=== PATIENT | female | born 1935 | race Caucasian/White ===

== ENCOUNTER → 2016-09-05 | Outpatient (CLI) | payer OTHER, MEDICARE ==
[~2016-09-05] MED LIST: ATV1 PO; IBUP-1459; MULT-506; OXYC1TAB3 PO
[2016-09-05 11:25] LABS: ALT/SGPT 22 U/L (12-78); BLOOD UREA NITROGEN 30 mg/dl (7-18); BUN/CREATININE RATIO 30.4 (10-20); CARBON DIOXIDE 30 mmol/L (21-32); CHLORIDE 106 mmol/L (98-107); GLUCOSE 113 mg/dl (70-99); POTASSIUM 4.7 mmol/L (3.5-5.1); SODIUM 143 mmol/L (136-145)
[2016-09-05 11:26] LABS: ALKALINE PHOSPHATASE 45 U/L (45-117); AST/SGOT 23 U/L (15-37)
[2016-09-05 11:29] LABS: CALCIUM 10.5 mg/dl (8.5-10.1)
[2016-09-05 11:52] LABS: ESTIMATED AVERAGE GLUCOSE 131 mg/dl; HA1C FLAG Normal (Normal)
--- NOTE | 2016-09-09 14:31 | CODING QUERY MEDICAL NECESSITY ---
SUPPORTING DIAGNOSIS NEEDED Dr. Warner, A supporting diagnosis is required for the test/procedure performed on this patient in order for us to be reimbursed by the patient's insurance. Please provide a supporting diagnosis for the following test/procedure listed below next to the test name along with your signature. *If there is no additional diagnosis for this patient that would support the following test/procedure please document that below next to the test/procedure. Test(s)/Procedure(s) that require a supporting diagnosis: * 42269 GLYCATED HEMOGLOBIN DIAGNOSIS: DATE OF SERVICE: 09/05/16 Provider Signature: Date: Thank you Jaya Camarillo [facility] Information Management Once completed, please kindly fax back to [phone] For questions please call [phone]
== END | disposition home or self-care (01) ==
LOC: C.LABBC 07:24
PROVIDERS: ATTEND Internal Medicine
DX: M85.80 Other specified disorders of bone density and structure, unspecified site (principal); R73.03 Prediabetes

== ENCOUNTER → 2016-09-10 | Outpatient (CLI) | payer OTHER, MEDICARE | END | disposition home or self-care (01) | LOC: C.LABBC 11:53 | PROVIDERS: ATTEND Internal Medicine | DX: E83.52 Hypercalcemia (principal) ==

== ENCOUNTER → 2016-10-27 | Outpatient (CLI) | payer OTHER, MEDICARE | END | disposition home or self-care (01) | LOC: C.MAMM 15:04 | PROVIDERS: ATTEND Internal Medicine Endocrinology, Diabetes & Metabolism | DX: E83.52 Hypercalcemia (principal); E21.3 Hyperparathyroidism, unspecified; M85.851 Other specified disorders of bone density and structure, right thigh; M85.852 Other specified disorders of bone density and structure, left thigh ==

== ENCOUNTER → 2016-10-28 | Outpatient (CLI) | payer OTHER, MEDICARE ==
[2016-10-28 12:44] LABS: CALCIUM URINE < 5.0 mg/dl
[2016-10-28 13:19] LABS: URINE COLLECTION TIME 24 HOURS; URINE SODIUM 24 HR 133 mmol/24 (40-220)
[2016-10-28 13:44] LABS: ALT/SGPT 24 U/L (12-78); BLOOD UREA NITROGEN 29 mg/dl (7-18); BUN/CREATININE RATIO 25.9 (10-20); CALCIUM 10.1 mg/dl (8.5-10.1); CARBON DIOXIDE 27 mmol/L (21-32); CHLORIDE 109 mmol/L (98-107); GLUCOSE 90 mg/dl (70-99); MAGNESIUM 2.2 mg/dl (1.8-2.4); POTASSIUM 4.6 mmol/L (3.5-5.1); SODIUM 142 mmol/L (136-145)
[2016-10-28 13:46] LABS: ALB/GLOB RATIO 0.8 (0.9-2); ALKALINE PHOSPHATASE 41 U/L (45-117); AST/SGOT 20 U/L (15-37); PHOSPHORUS 2.8 mg/dl (2.5-4.9)
== END | disposition home or self-care (01) ==
LOC: C.LAB1850 09:39
PROVIDERS: ATTEND Internal Medicine Endocrinology, Diabetes & Metabolism
DX: E83.52 Hypercalcemia (principal)

== ENCOUNTER → 2016-11-13 | Outpatient (CLI) | payer OTHER, MEDICARE ==
[2016-11-13 10:01] LABS: CALCIUM URINE < 5.0 mg/dl
[2016-11-13 10:32] LABS: URINE COLLECTION TIME 24 HOURS
== END | disposition home or self-care (01) ==
LOC: C.LAB1850 07:26
PROVIDERS: ATTEND Internal Medicine Endocrinology, Diabetes & Metabolism
DX: E21.3 Hyperparathyroidism, unspecified (principal)

== ENCOUNTER → 2016-11-20 | Outpatient (CLI) | payer OTHER, MEDICARE ==
--- NOTE | 2016-11-20 23:31 | DIAGNOSTIC IMAGING REPORT ---
NUCLEAR MEDICINE PARATHYROID SCAN CLINICAL HISTORY: HYPERPARATHYROIDISM COMPARISON STUDY: No previous studies for comparison. TECHNIQUE: 20 mCi of technetium 99m Cardiolite was injected IV at 3:30 PM on November 20, 2016. Planar and SPECT imaging was performed 15 minutes and 3 hours following injection. FINDINGS: Early images demonstrate slight asymmetric radiotracer uptake projecting over the right thyroid lobe. No foci of significant radiotracer retention are noted on the delayed images. There may be slight asymmetric retention projecting over the right thyroid lobe although this is likely within normal limits. IMPRESSION: No convincing evidence for a parathyroid adenoma. Slight asymmetric radiotracer uptake projecting over the right thyroid lobe on the early and delayed images is of questionable significance. A right parathyroid adenoma would be difficult to exclude but this study does not strongly suggest an adenoma. Electronically signed by: Soy Pascal M.D. 11/20/2016 11:30 PM Dictated Date/Time: 11/20/2016 11:24 PM
== END | disposition home or self-care (01) ==
LOC: C.NUCL 14:59
PROVIDERS: ATTEND Internal Medicine Endocrinology, Diabetes & Metabolism
DX: E21.3 Hyperparathyroidism, unspecified (principal)

== ENCOUNTER → 2017-01-13 | Outpatient (CLI) | payer OTHER, MEDICARE ==
[2017-01-13 11:38] LABS: ALT/SGPT 22 U/L (12-78); AST/SGOT 22 U/L (15-37); BLOOD UREA NITROGEN 39 mg/dl (7-18); BUN/CREATININE RATIO 32.4 (10-20); CALCIUM 9.8 mg/dl (8.5-10.1); CARBON DIOXIDE 30 mmol/L (21-32); CHLORIDE 104 mmol/L (98-107); GLUCOSE 122 mg/dl (70-99); POTASSIUM 4.5 mmol/L (3.5-5.1); SODIUM 140 mmol/L (136-145)
[2017-01-13 11:43] LABS: ALKALINE PHOSPHATASE 50 U/L (45-117)
== END | disposition home or self-care (01) ==
LOC: C.LABBC 07:31
PROVIDERS: ATTEND Internal Medicine Endocrinology, Diabetes & Metabolism
DX: E83.52 Hypercalcemia (principal)

== ENCOUNTER → 2017-05-06 | Outpatient (CLI) | payer OTHER, MEDICARE ==
[~2017-05-06] MED LIST changes: +OXYC-90 PO; -OXYC1TAB3 PO
[2017-05-06 11:10] LABS: BASO % 0.5 %; BASO ABS # 0.04 K/uL (0-0.2); EOS % 2.6 %; HEMATOCRIT 41.2 % (37-47); HEMOGLOBIN 13.4 g/dL (12.0-16.0); IG# 0.03 K/uL (0.00-0.02); LYMPH % 24.7 %; LYMPH ABS # 1.91 K/uL (1.2-3.4); MEAN CELL VOLUME 97.6 fL (80-100); MEAN CORPUSCULAR HEMOGLOBIN 31.8 pg (25-34); MEAN CORPUSCULAR HGB CONC 32.5 g/dl (32-36); MEAN PLATELET VOLUME 12.3 fL (7.4-10.4); MONO % 9.2 %; MONO ABS # 0.71 K/uL (0.11-0.59); NEUT % 62.6 %; NEUT ABS # 4.84 K/uL (1.4-6.5); PLATELET COUNT 212 K/uL (130-400); RED CELL DISTRIBUTION WIDTH CV 14.8 % (11.5-14.5); RED CELL DISTRIBUTION WIDTH SD 52.8 fL (36.4-46.3); WHITE BLOOD COUNT 7.73 K/uL (4.8-10.8)
[2017-05-06 11:19] LABS: HEMOGLOBIN A1C 6.2 % (4.5-5.6)
[2017-05-06 11:28] LABS: ALBUMIN 3.5 gm/dl (3.4-5.0); ALT/SGPT 27 U/L (12-78); AST/SGOT 22 U/L (15-37); BLOOD UREA NITROGEN 25 mg/dl (7-18); CALCIUM 9.8 mg/dl (8.5-10.1); CARBON DIOXIDE 31 mmol/L (21-32); CREATININE 0.97 mg/dl (0.60-1.20); GLUCOSE 113 mg/dl (70-99); POTASSIUM 4.6 mmol/L (3.5-5.1); SODIUM 138 mmol/L (136-145)
[2017-05-06 11:39] LABS: ALKALINE PHOSPHATASE 47 U/L (45-117); CHOLESTEROL 168 mg/dl (0-200); LDL CHOLESTEROL CALCULATED 70 mg/dl; TOTAL PROTEIN 7.8 gm/dl (6.4-8.2)
== END | disposition home or self-care (01) ==
LOC: C.LABBC 07:32
PROVIDERS: ATTEND Internal Medicine
DX: R73.03 Prediabetes (principal)

== ENCOUNTER → 2017-05-25 | Outpatient (CLI) | payer OTHER, MEDICARE ==
[~2017-05-25] MED LIST changes: -OXYC-90 PO; +OXYC1TAB3 PO
--- NOTE | 2017-05-26 14:38 | MAMMOGRAPHY REPORT ---
BILATERAL DIGITAL SCREENING MAMMOGRAM TOMOSYNTHESIS WITH CAD: 05/25/2017 CLINICAL HISTORY: Routine screening. Patient has no complaints. TECHNIQUE: Breast tomosynthesis in addition to standard 2D mammography was performed. Current study was also evaluated with a Computer Aided Detection (CAD) system. COMPARISON: Comparison is made to exams dated: 04/09/2016 mammogram, 04/05/2015 mammogram, 04/03/2014 m ammogram, 03/28/2013 mammogram, 03/26/2012 mammogram, and 02/27/2010 mammogram - [facility]. BREAST COMPOSITION: The tissue of both breasts is heterogeneously dense, which may obscure small mas ses. FINDINGS: A linear scar marker overlies the inferior right breast. There is a stable ministerio-shaped biop sy marker clip in the inferior/6:00 right breast . There are diffuse punctate microcalcifications bi laterally, and a few benign rim calcifications in the right breast. Stable asymmetries in the medial left breast. No new suspicious mass, architectural distortion or cluster of microcalcifications is seen. IMPRESSION: ACR BI-RADS CATEGORY 1: NEGATIVE There is no mammographic evidence of malignancy. A 1 year screening mammogram is recommended. The pa tient will receive written notification of the results. Approximately 10% of breast cancers are not detected with mammography. A negative mammographic report should not delay biopsy if a clinically suggestive mass is present. Juana Carmen M.D. ay/:05/25/2017 16:43:25 Field Aide: Lucía SMITH)(Sara), [facility] letter sent: Normal 1/2 BI-RADS Code: ACR BI-RADS Category 1: Negative
== END | disposition home or self-care (01) ==
LOC: C.MAMM 08:19
PROVIDERS: ATTEND Obstetrics & Gynecology
DX: Z12.31 Encounter for screening mammogram for malignant neoplasm of breast (principal)

== ENCOUNTER → 2017-08-04 | Outpatient (CLI) | payer OTHER, MEDICARE | END | disposition home or self-care (01) | LOC: C.LABBC 07:14 | PROVIDERS: ATTEND Internal Medicine Endocrinology, Diabetes & Metabolism | DX: E21.3 Hyperparathyroidism, unspecified (principal) ==

== ENCOUNTER 2023-11-27 11:39 | Observation (INO) ==
--- NOTE | 2023-11-27 12:40 | Emergency Department Note ---
Impression & Plan Stroke-like symptom, Elevated troponin I level, Abnormal EKG ED Provider Note NAME: RITESH TOVAR AGE: 88 SEX: F : 1935 ARRIVES VIA: Walk-In INFORMANT: Patient, the patient's daughter ED PROVIDER(S): Mario Conway DO CHIEF COMPLAINT: Possible stroke HPI: The patient is an 88-year-old female who presented to the emergency department for an evaluation of strokelike symptoms. The patient has been having symptoms over the course the last few months. These occur intermittently. There is no pattern. There is no exacerbating features. She denies having any headache but she describes a feeling of "impending doom" and that there is something wrong with her brain. She denies having any weakness in the arms or legs. The patient states that she has episodes where she becomes very somnolent and quiet this was described by her daughter. There is no seizure-like activity. She called her family doctor today to have some testing done and was referred to the emergency department for possible strokelike symptoms. The patient denies having any abdominal pain nausea or vomiting. She denies having any chest pain at this time. She has had some shortness of breath which was worse than usual. ROS: See above HPI for pertinent positives & negatives. A total of 10 systems reviewed and were otherwise negative. PAST MEDICAL HISTORY: See Below PAST SURGICAL HISTORY: See Below FAMILY HISTORY: See Below SOCIAL HISTORY: See Below HOME MEDICATIONS: See Below ALLERGIES: See Below VITALS: See Below PHYSICAL EXAMINATION: GENERAL: Patient is awake alert in no acute distress patient is resting comfortably and showing no signs of anxiety EYES: The conjunctivae are clear. The pupils are round and reactive. EARS, NOSE, MOUTH AND THROAT: The nose is without any evidence of any deformity NECK: The neck is nontender and supple. RESPIRATORY: Normal respiratory effort is noted there is no evidence of wheezing rhonchi or rales CARDIOVASCULAR: Regular rate and rhythm was noted to auscultation. Systolic murmur suggested. GASTROINTESTINAL: The abdomen is soft. Abdomen is nontender. MUSCULOSKELETAL/EXTREMITIES: There is no evidence of gross deformity full range of motion is noted in the hips and shoulders. SKIN: There is no obvious evidence of any rash. There are no petechiae, pallor or cyanosis noted. NEUROLOGIC: Patient is awake alert and oriented x3 strength is symmetric patellar reflexes are 2+ bilaterally MEDICAL DECISION MAKING: The patient is an 88-year-old female who presented to the emergency department for an evaluation of possible strokelike symptoms. The patient was referred by her primary care physician. The patient describes episodes where she would have an abnormal sensation in her head. It was not necessarily associated with any unilateral weakness. It was not necessarily describes a headache. Her daughter describes episodes where she would have a staring and would not respond. She has these multiple times. The patient did not have any focal neurologic deficits on my physical exam. Her blood pressure was elevated. EKG showed some ST segment abnormalities that are new compared to previous. Cardiac biomarker was mildly elevated. I discussed the patient's laboratory and radiographic studies with her. CT and CT angiography of the brain and neck did not show any signs of aneurysmal dilatation or intracranial hemorrhage. She has no signs of mass effect. Given the patient's findings as well as her age and comorbidities I do feel the patient would be a better candidate for inpatient management. For this reason the [facility] was notified. They will evaluate the patient in the emergency department. Triage Nursing notes reviewed. Prior medical records reviewed Vital Signs: reviewed and remarkable for elevated blood pressure. Differential diagnosis: Infection, dehydration, metabolic abnormality, hypo/hyperglycemia, electrolyte disturbance, anemia, hypoxia, cardiac sources, intracerebral event, toxicologic, neurologic, as well as other pathologies. ER treatment provided: See below Diagnostics interpreted by me: ECG: EKG was obtained in the emergency department. My interpretation is sinus rhythm at 68 bpm. First-degree AV block was noted. LVH was noted by voltage criteria. Lateral and inferior ST depressions were noted. This was compared to a tracing from January 27, 2023. The ST depression is increased compared to previous otherwise no changes were noted. Cardiac Monitoring: An order was placed for continuous cardiac monitoring. The monitor shows a rate of 58 bpm with sinus bradycardia. Laboratory studies: As stated above and show below. Imaging studies: See below. Radiographic imaging was reviewed by myself Consultation(s): I discussed this case with Dr. Hassan who is on-call for the [facility] group. 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 Allred Surgical History H/O ovarian cystectomy H/O dilation and curettage H/O colonoscopy History of lumbar laminectomy S/P tonsillectomy S/P total parathyroidectomy History of cataract surgery H/O breast biopsy mult - benign History of appendectomy Family History Mother Muscle pain Hypertension Father Myocardial infarction Renal failure Hypertension Sister Glaucoma Hyperparathyroidism Denies family history of Ovarian cancer Prostate cancer Diabetes Depression Breast cancer Colorectal cancer Stroke Social History Smoking Status: Never smoker Tobacco Type: Cigarettes Age Started Using Tobacco: 19; Age Quit Using Tobacco: 31; Cigarettes Per Day: 10; Second Hand Exposure: No; Do You Dip or Chew Tobacco: No; Hx Alcohol Use: No Hx Substance Use: No Preferred Language: Greenlandic Communication Ability: Effective Visual Impairment: Limited Hearing Ability: Use of Hearing Aid Board Certified Orthodontist Required: No marital status: Current Living Situation: Spouse current occupational status: retired Feels Safe at Home: Yes Childhood Exposure to Second-Hand Smoke: No Diet: regular caffeine: No Dental Care, Regularly: Yes Physical Activity Frequency: Daily Physical Activity Frequency Comment: walking daily Seatbelt Use: always Sunscreen Use: No Assistive Devices: Glasses Allergies Allergies Allergy/AdvReac Type Severity Reaction Status Date / Time adhesive tape Allergy redness Verified 11/27/23 15:18 acetaminophen AdvReac Unknown CHEMICAL Verified 11/27/23 15:18 HEPATITIS capsaicin AdvReac Unknown "VOLTAREN" Verified 11/27/23 15:18 CHEMICAL HEPATITIS diclofenac AdvReac Unknown "VOLTAREN" Verified 11/27/23 15:18 CHEMICAL HEPATITIS Diclopak AdvReac Unknown "VOLATEN" Verified 06/08/09 03:30 CHEMICAL HEPATITIS Home Meds Home Medications Medication Instructions Recorded Confirmed Lactobacillus acidophilus 10 mg PO QAM 11/15/18 11/27/23 (Acidophilus capsule) multivitamin (Daily Multiple 1 tab PO QAM 11/15/18 11/27/23 tablet) omega-3 fatty acids 1,000 mg 1,000 mg PO DAILY 06/06/21 11/27/23 capsule (Fish Oil Concentrate) furosemide 20 mg tablet 20 mg PO DAILY 11/27/23 11/27/23 Previous Rx's Medication Instructions Recorded Wheeled Walker #1 ea 02/03/23 metoprolol succinate 50 mg 50 mg PO DAILY #90 tabs 03/09/23 tablet,extended release 24 hr Results & Data (ED) Vital Signs Vital Signs - 24 hr 11/27/23 11:42 11/27/23 12:00 11/27/23 12:32 Temperature 36.3 C L Temperature Source Temporal Artery Scan Pulse Rate 64 Pulse Rate [Apical] 62 65 Pulse Rate from SpO2 Sensor Pulse Rhythm [Apical] Irregular Irregular Pulse Strength [Apical] Normal Normal Respiratory Rate 16 22 21 Respiratory Effort / Characteristics Non-Labored Spontaneous Non-Labored Spontaneous Respiratory Depth Normal Normal Respiratory Pattern Regular Regular Blood Pressure 199/97 H Blood Pressure [Left Arm] 213/95 H 214/79 H Blood Pressure Mean 131 Blood Pressure Mean [Left Arm] 134 124 Blood Pressure Position [Left Arm] Sitting Sitting Pulse Oximetry 97 98 96 Oxygen Delivery Method Room Air Room Air Room Air Sepsis Recent Fever Within 48 Hours No Sepsis New/Unexplained Change in Mental Status No Sepsis Action Taken by Nursing No Action Required 11/27/23 12:41 11/27/23 13:03 11/27/23 13:30 Temperature Temperature Source Pulse Rate 64 52 L 51 L Pulse Rate [Apical] Pulse Rate from SpO2 Sensor 51 L 51 L Pulse Rhythm [Apical] Pulse Strength [Apical] Respiratory Rate 20 19 Respiratory Effort / Characteristics Respiratory Depth Respiratory Pattern Blood Pressure 187/84 H 183/79 H Blood Pressure [Left Arm] Blood Pressure Mean 118 113 Blood Pressure Mean [Left Arm] Blood Pressure Position [Left Arm] Pulse Oximetry 97 99 Oxygen Delivery Method Sepsis Recent Fever Within 48 Hours Sepsis New/Unexplained Change in Mental Status Sepsis Action Taken by Nursing 11/27/23 14:06 11/27/23 14:30 11/27/23 14:30 Temperature Temperature Source Pulse Rate 66 51 L Pulse Rate [Apical] Pulse Rate from SpO2 Sensor 51 L Pulse Rhythm [Apical] Pulse Strength [Apical] Respiratory Rate 12 14 Respiratory Effort / Characteristics Respiratory Depth Respiratory Pattern Blood Pressure 185/62 H Blood Pressure [Left Arm] Blood Pressure Mean 79 Blood Pressure Mean [Left Arm] Blood Pressure Position [Left Arm] Pulse Oximetry 99 99 Oxygen Delivery Method Sepsis Recent Fever Within 48 Hours Sepsis New/Unexplained Change in Mental Status Sepsis Action Taken by Nursing 11/27/23 14:30 11/27/23 15:06 Temperature Temperature Source Pulse Rate 60 Pulse Rate [Apical] Pulse Rate from SpO2 Sensor 55 L Pulse Rhythm [Apical] Pulse Strength [Apical] Respiratory Rate 17 Respiratory Effort / Characteristics Respiratory Depth Respiratory Pattern Blood Pressure 185/62 H Blood Pressure [Left Arm] Blood Pressure Mean 79 Blood Pressure Mean [Left Arm] Blood Pressure Position [Left Arm] Pulse Oximetry 99 Oxygen Delivery Method Sepsis Recent Fever Within 48 Hours Sepsis New/Unexplained Change in Mental Status Sepsis Action Taken by Detention Medications Current Medication List: was personally reviewed by me Laboratory Data Attestation: I reviewed the patient's lab results. 11/27/23 12:00 11/27/23 12:00 Lab Results 11/27/23 11/27/23 Range/Units 12:00 12:38 WBC 9.04 (4.8-10.8) K/ul RBC 4.76 (4.20-5.40) M/uL Hgb 14.4 (12.0-16.0) g/dl Hct 44.3 (37.0-47.0) % MCV 93.1 (80.0-100.0) fL MCH 30.3 (25.0-34.0) pg MCHC 32.5 (32.0-36.0) g/dL RDW Std Deviation 47.9 H (36.4-46.3) fL RDW Coeff of [place] 14.0 (11.5-14.5) % Plt Count 200 (130-400) K/uL MPV 12.2 (9.4-12.4) fL Immature Gran % (Auto) 0.6 % Neut % (Auto) 67.2 % Lymph % (Auto) 22.5 % [place] % (Auto) 6.3 % Eos % (Auto) 2.2 % Baso % (Auto) 1.2 % Neut # (Auto) 6.08 (1.40-6.50) K/uL Lymph # (Auto) 2.03 (1.20-3.40) K/uL [place] # (Auto) 0.57 (0.11-0.59) K/uL Eos # (Auto) 0.20 (0.00-0.50) K/uL Baso # (Auto) 0.11 (0.00-0.20) K/uL Immature Gran # (Auto) 0.05 (0.01-0.20) K/uL PT 10.4 (9.0-12.0) Seconds INR 1.0 (0.9-1.1) APTT 26 (21-31) Seconds PTT Ratio 1.0 Sodium 140 (136-145) mmol/L Potassium 4.5 (3.5-5.1) mmol/L Chloride 104 (98-107) mmol/L Carbon Dioxide 29 (21-32) mmol/L Anion Gap 7 (3-11) BUN 40 H (6-23) mg/dl Creatinine 1.39 H (0.6-1.2) mg/dl Est Cr Clr Drug Dosing 18.7 ml/min Est GFR ( Amer) 39.1 ml/min Est GFR (Non-Af Amer) 33.8 ml/min BUN/Creatinine Ratio 28.8 H (10-20) Glucose 115 H (70-99(Fasting)) mg/dl Calcium 11.7 H (8.6-10.3) mg/dl Magnesium 2.2 (1.7-2.4) mg/dl Total Bilirubin 0.6 (0.2-1.0) mg/dl AST 24 (13-39) U/L ALT 16 (7-52) U/L Alkaline Phosphatase 48 (34-104) U/L Troponin I High Sens 16.2 H (0-14) pg/ml Total Protein 8.4 H (6.0-8.3) gm/dl Albumin 4.7 (3.4-5.0) gm/dl Globulin 3.7 (2.5-4.0) gm/dl Albumin/Globulin Ratio 1.3 (0.9-2) Urine Color Yellow Urine Appearance Clear (Clear) Urine pH 7.0 (4.5-7.5) Ur Specific [place] 1.008 (1.000-1.030) Urine Protein Negative (Negative) Urine Glucose (UA) Negative (Negative) Urine Ketones Negative (Negative) Urine Blood Negative (Negative) Urine Nitrite Negative (Negative) Urine Bilirubin Negative (Negative) Urine Urobilinogen Negative (Negative) Ur Leukocyte Esterase Trace H (Negative) Urine WBC (Auto) 0-5 (0-5) /hpf Urine RBC (Auto) 0-2 (0-2) /hpf U Hyaline Cast (Auto) 0-2 (0-2) /lpf U Epithel Cells (Auto) 0-2 (0-2) /hpf Urine Bacteria (Auto) None Seen (None Seen) Administered Medications Discontinued Medications Ioversol (Optiray 320 125ml) 120 ml IV ONCE ONE Stop: 11/27/23 14:01 Last Admin: 11/27/23 14:00 Dose: 120 ml Documented By: SATHYA Imaging Data Attestation: I personally reviewed and interpreted this imaging study as follows: My Impression: 1 view chest x-ray was obtained in the emergency department. My interpretation is no free air or definite infiltrate, final report below. CT of the brain was obtained in the emergency department. My interpretation is no intracranial hemorrhage or mass effect, final report below. Radiologist's Impression: Chest X-Ray 11/27/23 12:25 XR chest 1V portable HISTORY: neuro deficit, acute stroke suspected COMPARISON: Chest CT 03/22/2021. FINDINGS: No pneumothorax. No pleural effusions. No new focal lung consolidations to suggest a pneumonia. No evidence for pulmonary edema. The cardiac silhouette remains enlarged. There are calcifications within the aortic knob. No acute fractures identified. There is again noted a 15 mm irregular nodule within the periphery the right upper lobe. IMPRESSION: 1. No acute process within the chest. 2. Stable cardiomegaly. 3. Redemonstration of the 15 mm irregular right upper lobe nodule. ACT 112: Negative or not required by law. Electronically signed by: Star Linn M.D. 11/27/2023 12:[address] 11/27/23 12:25 CT angio head w con, CT head/brain wo con CLINICAL HISTORY: neuro deficit, acute stroke suspected TECHNIQUE: Contiguous axial CT images of the head were acquired from the base of the skull to the vertex without intravenous contrast administration. CT angiography of the head was performed following intravenous administration of iodinated contrast. Coronal and sagittal MIPS were obtained from the axial data set and were submitted for review. Automated dose lowering techniques and/or adjustment according to patient size were utilized for this examination. All measurements were calculated based on NASCET criteria. Comparison: None available at the time of this dictation. FINDINGS: CT head: There is no acute intracranial hemorrhage or evidence of acute territorial infarction. No shift of the midline structures, mass effect, or extra-axial abnormalities are shown. CTA Head: The anterior and posterior cerebral circulations are patent. origin of the left posterior cerebral artery is seen. IMPRESSION: 1. No acute intracranial hemorrhage, evidence of acute territorial infarction, or other acute intracranial disease process. 2. No occlusion, hemodynamically significant stenosis, aneurysm, dissection, or arteriovenous malformation in the major intracranial arteries. Assessment of stenosis of the internal carotid arteries is based on NASCET criteria. ACT 112: Negative or not required by law. Electronically signed by: Yann Romo M.D. 11/27/2023 2:34 PM Head CTA 11/27/23 12:25 CT angio head w con, CT head/brain wo con CLINICAL HISTORY: neuro deficit, acute stroke suspected TECHNIQUE: Contiguous axial CT images of the head were acquired from the base of the skull to the vertex without intravenous contrast administration. CT angiography of the head was performed following intravenous administration of iodinated contrast. Coronal and sagittal MIPS were obtained from the axial data set and were submitted for review. Automated dose lowering techniques and/or adjustment according to patient size were utilized for this examination. All measurements were calculated based on NASCET criteria. Comparison: None available at the time of this dictation. FINDINGS: CT head: There is no acute intracranial hemorrhage or evidence of acute territorial infarction. No shift of the midline structures, mass effect, or extra-axial abnormalities are shown. CTA Head: The anterior and posterior cerebral circulations are patent. origin of the left posterior cerebral artery is seen. IMPRESSION: 1. No acute intracranial hemorrhage, evidence of acute territorial infarction, or other acute intracranial disease process. 2. No occlusion, hemodynamically significant stenosis, aneurysm, dissection, or arteriovenous malformation in the major intracranial arteries. Assessment of stenosis of the internal carotid arteries is based on NASCET criteria. ACT 112: Negative or not required by law. Electronically signed by: Yann Romo M.D. 11/27/2023 2:34 PM Neck CTA 11/27/23 12:25 CT angio neck with con CLINICAL HISTORY: 88 years-old Female with neuro deficit, acute stroke suspected. Acute strokelike symptoms COMPARISON STUDY: CTA head of same day TECHNIQUE: Following the IV administration of 120 of Optiray, CT angiogram of the neck was performed from the aortic arch to the skull base. Images are reviewed in the axial, sagittal, and coronal planes. 3-D MIPS images are created and assessed. IV contrast was administered without complication. All measurements were calculated based on NASCET criteria. A dose lowering technique was utilized adhering to the principles of ALARA. CT DOSE: 1004.75 mGy.cm FINDINGS: Atherosclerosis of the aorta. Images opacified pulmonary arteries unremarkable. Three-vessel morphology of the thoracic arch. There is patency of the innominate and imaged subclavian arteries. The common carotid arteries are patent. Atherosclerosis of the carotid bulbs and proximal cervical segments of the internal carotid arteries causing less than 50% stenosis bilaterally. Dominant left vertebral artery. The vertebral arteries are patent bilaterally. No aneurysm, dissection, high-grade stenosis or arterial occlusion identified. The apices are clear without pneumothorax. Borderline enlarged subcarinal lymph nodes. Unremarkable soft tissues. No acute fracture. Degenerative changes of the cervical spine. IMPRESSION:Atherosclerosis without aneurysm, dissection, high-grade stenosis or arterial occlusion. ACT 112: Negative or not required by law. The above report was generated using voice recognition software. It may contain grammatical, syntax or spelling errors. Electronically signed by: Deo Savage M.D. 11/27/2023 2:34 PM Discharge Plan Visit Data Chief Complaint: Stroke/CVA Symptoms Stated Complaint: POSS MINI STROKES, REFERRED BY KIM BAILEY ED Provider: Mario Conway Discharge Problem: Stroke-like symptom, Elevated troponin I level, Abnormal EKG Patient Disposition: Being Evaluated by Hospitalist Forms Stand Alone Forms: My [employer] Prescriptions Prescriptions: No Action metoprolol succinate 50 mg tablet extended release 24 hr 50 mg PO DAILY Qty: 90 3RF Lactobacillus acidophilus [Acidophilus] capsule 10 mg PO QAM multivitamin [Daily Multiple] tablet 1 tab PO QAM omega-3 fatty acids [Fish Oil Concentrate] 1,000 mg capsule 1,000 mg PO DAILY (DME) Wheeled Walker Misc See Rx Instructions .Route Qty: 1 0RF Rx Instructions: As directed furosemide 20 mg tablet 20 mg PO DAILY Rx Instructions: TAKE 1 TABLET BY MOUTH DAILY Referrals Referrals: Rob Bailey DO [Primary Care Provider] -
--- NOTE | 2023-11-27 12:53 | XRay Report ---
XR chest 1V portable HISTORY: neuro deficit, acute stroke suspected COMPARISON: Chest CT 03/22/2021. FINDINGS: No pneumothorax. No pleural effusions. No new focal lung consolidations to suggest a pneumo horace. No evidence for pulmonary edema. The cardiac silhouette remains enlarged. There are calcificatio ns within the aortic knob. No acute fractures identified. There is again noted a 15 mm irregular nodu le within the periphery the right upper lobe. IMPRESSION: 1. No acute process within the chest. 2. Stable cardiomegaly. 3. Redemonstration of the 15 mm irregular right upper lobe nodule. ACT 112: Negative or not required by law. Electronically signed by: Star Linn M.D. 11/27/2023 12:52 PM
[2023-11-27 12:57] LABS: Appearance Urine Clear (Clear); Bacteria Urine Automated None Seen (None Seen); Bilirubin Urine Negative (Negative); Blood Urine Negative (Negative); Cast Urine Automated 0-2 /lpf (0-2); Color Urine Yellow; Epithelial Cell Urine Auto 0-2 /hpf (0-2); Glucose Urine UA Negative (Negative); Ketones Urine Negative (Negative); Leukocyte Esterase Urine Trace (Negative); Nitrite Urine Negative (Negative); Protein Urine Negative (Negative); RBC Urine Automated 0-2 /hpf (0-2); Specific Gravity Urine 1.008 (1.000-1.030); Urobilinogen Urine Negative (Negative); WBC Urine Automated 0-5 /hpf (0-5)
[2023-11-27 13:10] LABS: Basophils # (auto) 0.11 K/uL (0.00-0.20); Basophils % (auto) 1.2 %; Eosinophils % (auto) 2.2 %; Hematocrit (blood only) 44.3 % (37.0-47.0); Hemoglobin 14.4 g/dl (12.0-16.0); Immature Granulocytes # (auto) 0.05 K/uL (0.01-0.20); Immature Granulocytes % (auto) 0.6 %; Lymphocytes # (auto) 2.03 K/uL (1.20-3.40); Lymphocytes % (auto) 22.5 %; Mean Corpuscular Hemoglobin 30.3 pg (25.0-34.0); Mean Corpuscular Hgb Conc 32.5 g/dL (32.0-36.0); Mean Corpuscular Volume 93.1 fL (80.0-100.0); Mean Platelet Volume 12.2 fL (9.4-12.4); Monocytes # (auto) 0.57 K/uL (0.11-0.59); Monocytes % (auto) 6.3 %; Neutrophils # (auto) 6.08 K/uL (1.40-6.50); Neutrophils % (auto) 67.2 %; Platelet Count 200 K/uL (130-400); RDW Standard Deviation 47.9 fL (36.4-46.3); Red Blood Count 4.76 M/uL (4.20-5.40); White Blood Count 9.04 K/ul (4.8-10.8)
[2023-11-27 13:15] LABS: Albumin Globulin Ratio 1.3 (0.9-2); Albumin Level 4.7 gm/dl (3.4-5.0); BUN Creatinine Ratio 28.8 (10-20); Bilirubin,Total 0.6 mg/dl (0.2-1.0); Calcium 11.7 mg/dl (8.6-10.3); Creatinine Clr Calc Pharmacy 18.7 ml/min; Est GFR (African American) 39.1 ml/min; Est GFR (Non-African American) 33.8 ml/min; Globulin 3.7 gm/dl (2.5-4.0); Magnesium 2.2 mg/dl (1.7-2.4); Potassium 4.5 mmol/L (3.5-5.1); Total Protein 8.4 gm/dl (6.0-8.3)
[2023-11-27 13:19] LABS: Troponin I High Sensitivity 16.2 pg/ml (0-14)
[2023-11-27 13:23] LABS: Partial Thromboplastin Time 26 Seconds (21-31); Prothrombin Time 10.4 Seconds (9.0-12.0)
[2023-11-27] MEDS: OPTIRAY 320 125ml IV ONE (14:00)
--- NOTE | 2023-11-27 14:35 | CT Scan Report ---
CT angio neck with con CLINICAL HISTORY: 88 years-old Female with neuro deficit, acute stroke suspected. Acute strokelike symptoms COMPARISON STUDY: CTA head of same day TECHNIQUE: Following the IV administration of 120 of Optiray, CT angiogram of the neck was performed from the aortic arch to the skull base. Images are reviewed in the axial, sagittal, and coronal plane s. 3-D MIPS images are created and assessed. IV contrast was administered without complication. All m easurements were calculated based on NASCET criteria. A dose lowering technique was utilized adherin g to the principles of ALARA. CT DOSE: 1004.75 mGy.cm FINDINGS: Atherosclerosis of the aorta. Images opacified pulmonary arteries unremarkable. Three-vessel morpholo gy of the thoracic arch. There is patency of the innominate and imaged subclavian arteries. The commo n carotid arteries are patent. Atherosclerosis of the carotid bulbs and proximal cervical segments of the internal carotid arteries causing less than 50% stenosis bilaterally. Dominant left vertebral ar madeleine. The vertebral arteries are patent bilaterally. No aneurysm, dissection, high-grade stenosis or arterial occlusion identified. The apices are clear without pneumothorax. Borderline enlarged subcarinal lymph nodes. Unremarkable s oft tissues. No acute fracture. Degenerative changes of the cervical spine. IMPRESSION:Atherosclerosis without aneurysm, dissection, high-grade stenosis or arterial occlusion. ACT 112: Negative or not required by law. The above report was generated using voice recognition software. It may contain grammatical, syntax o r spelling errors. Electronically signed by: Deo Savage M.D. 11/27/2023 2:34 PM
--- NOTE | 2023-11-27 14:36 | CT Scan Report ---
CT angio head w con, CT head/brain wo con CLINICAL HISTORY: neuro deficit, acute stroke suspected TECHNIQUE: Contiguous axial CT images of the head were acquired from the base of the skull to the nicholas donte without intravenous contrast administration. CT angiography of the head was performed following intravenous administration of iodinated contrast. Coronal and sagittal MIPS were obtained from the ax ial data set and were submitted for review. Automated dose lowering techniques and/or adjustment acc ording to patient size were utilized for this examination. All measurements were calculated based on NASCET criteria. Comparison: None available at the time of this dictation. FINDINGS: CT head: There is no acute intracranial hemorrhage or evidence of acute territorial infarction. No sh ift of the midline structures, mass effect, or extra-axial abnormalities are shown. CTA Head: The anterior and posterior cerebral circulations are patent. origin of the left post erior cerebral artery is seen. IMPRESSION: 1. No acute intracranial hemorrhage, evidence of acute territorial infarction, or other acute intrac ranial disease process. 2. No occlusion, hemodynamically significant stenosis, aneurysm, dissection, or arteriovenous malfor mation in the major intracranial arteries. Assessment of stenosis of the internal carotid arteries is based on NASCET criteria. ACT 112: Negative or not required by law. Electronically signed by: Yann Romo M.D. 11/27/2023 2:34 PM
--- NOTE | 2023-11-27 15:52 | History & Physical Report ---
Date of Service November 27, 2023 Assessment & Plan (1) Disturbed cognition: Plan: Admit to med telemetry Currently stable and nontoxic-appearing Presented to the ED at the recommendation of her PCP due to multiple episodes of alterations in cognition over the past 3 months Patient describes approximately 4 episodes of initial impending doom followed by sensation that it dark cap is over her head Denies other focal neuro defects, denies feeling increased anxiety prior to these events, each event has happened while sitting at her kitchen counter watching TV Chest x-ray, CT of the head without contrast, and CTA of head and neck were negative for acute findings No focal neuro defects on exam Patient denies recent medication changes and/or [id number] supplements Patient does appear mildly dehydrated on exam consistent with elevated creatinine Will obtain MRI of the brain without contrast and EEG overnight Can consider neurology consult tomorrow if needed otherwise could likely follow-up outpatient Will obtain TSH with reflex free T4 if needed Bilateral SCDs for DVT prophylaxis Fall/aspiration precautions Will allow for permissive hypertension for now until MRI results are back. Heart healthy diet AM CBC, CMP, mag, PT/INR (2) Elevated troponin I level: Plan: Initial high-sensitivity troponin level elevated at 16.2 Patient denies recent chest discomfort No acute ST segment or T wave changes compared to previous EKGs Likely due to known atherosclerosis and mild demand due to dehydration Will obtain a repeat 2-hour high-sensitivity troponin admission continue to monitor on telemetry for now (3) Hypertension: Plan: Patient has been hypertensive since arrival with blood pressure fluctuating from systolics in the low 200s to current of 185/62 Normally only on metoprolol and Lasix Will allow permissive hypertension until MRI of the brain is obtained Does not appear to be causing her alterations in cognition as she has been alert and oriented while being hypertensive here Plan The patient was discussed with Dr. Carl at the time of admission History of Present Illness Chief Complaint: Staring spells Primary Care Provider: DO Jason Ford is an 88-year-old female with a past medical history significant for palpitations, ventricular tachycardia, frequent PVCs, pulmonary hypertension, sinus node dysfunction, hypertension, who presented to the [facility] ED on 11/27/2023 with multiple episodes of episodes of impending doom and staring spells. She was noted to be hypertensive on arrival at 213/95, bradycardic at times with heart rate in the 50s, but otherwise stable. Labs were significant for a creatinine of 1.39 (baseline is near 1.0), calcium of 11.7, initial high-sensitivity troponin of 16, trace leukocyte esterase but otherwise unremarkable UA. CT of the head and brain without contrast and CTA angio head with con were read as negative for acute manage, evidence acute cortical infarction, or other disease processes. No occlusion, hemodynamically significant stenosis, aneurysm, dissection,. Venous malformation intracranial arteries. CTA of the neck was read as atherosclerosis without aneurysm dissection, or high-grade stenosis or arterial occlusion. ECG shows sinus rhythm with first-degree AV block and ST segment depressions in the anterolateral leads with elevation in the septal leads without change compared to previous on 01/27/2023. Patient was lying in bed in no acute distress at the time of exam with her daughter at bedside, history was obtained from both. Patient explains that over the past 3 months she has had approximately 4 episodes of altered mentation. Each episode has happened while she is sitting at her counter watching TV. Episodes typically happen in the afternoon. She gets a sensation as though something bad is going to happen, she describes it as (impending doom). She then experiences what she describes as a sensation like a black Is over the top of her head. She confirms that she does not actually have vision changes during these episodes. These episodes last typically seconds to 2 minutes and always occur in pairs of 2. Denies headache, changes in vision, hearing, taste, smell, paresthesias, unilateral weakness, chest pain/palpitations, shortness of breath, abdominal pain, nausea/vomiting, dysuria/hematuria, increased urinary frequency, seizure-like activity, loss of bladder or bowel function. While when asked, she does not feel as though she is having increased stress/anxiety prior to these events happening such as a panic attack. She denies recent medication changes, exsa-yze-mixzodh supplements, alcohol/tobacco use. Her daughter adds that over the past year or so the patient has had multiple episodes where she will suddenly fall asleep for a few seconds and then regained consciousness herself. These episodes can happen while she is mid-conversation. We discussed CODE STATUS, she clearly expresses her wish to be a DNR/DNI. Her daughter is here primary decision maker if she cannot make decisions for self. Please refer to Dr. Carl's attestation for any changes to the treatment plan Allergies Allergy/AdvReac Type Severity Reaction Status Date / Time adhesive tape Allergy redness Verified 11/27/23 15:18 acetaminophen AdvReac Unknown CHEMICAL Verified 11/27/23 15:18 HEPATITIS capsaicin AdvReac Unknown "VOLTAREN" Verified 11/27/23 15:18 CHEMICAL HEPATITIS diclofenac AdvReac Unknown "VOLTAREN" Verified 11/27/23 15:18 CHEMICAL HEPATITIS Diclopak AdvReac Unknown "VOLATEN" Verified 06/08/09 03:30 CHEMICAL HEPATITIS Home Medications Medication Instructions Recorded Confirmed Type Lactobacillus acidophilus 10 mg PO QAM 11/15/18 11/27/23 History (Acidophilus capsule) multivitamin (Daily Multiple 1 tab PO QAM 11/15/18 11/27/23 History tablet) omega-3 fatty acids 1,000 mg 1,000 mg PO DAILY 06/06/21 11/27/23 History capsule (Fish Oil Concentrate) Wheeled Walker #1 ea 02/03/23 08/27/23 Rx metoprolol succinate 50 mg 50 mg PO DAILY #90 tabs 03/09/23 11/27/23 Rx tablet,extended release 24 hr furosemide 20 mg tablet 20 mg PO DAILY 11/27/23 11/27/23 History Past Med/Surg History Problem List (Updated 11/27/23 @ 16:26 by Germán Dimas PA-C) Disturbed cognition Abnormal EKG (Acute) Elevated troponin I level (Acute) Stroke-like symptom (Acute) Osteoporosis Osteopenia with very high FRAX score Greater trochanteric bursitis Neurogenic claudication Chronic SI joint pain Lumbar spondylosis 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 Allred Surgical History H/O ovarian cystectomy H/O dilation and curettage H/O colonoscopy History of lumbar laminectomy S/P tonsillectomy S/P total parathyroidectomy History of cataract surgery H/O breast biopsy mult - benign History of appendectomy Family History Mother Muscle pain Hypertension Father Myocardial infarction Renal failure Hypertension Sister Glaucoma Hyperparathyroidism Denies family history of Ovarian cancer Prostate cancer Diabetes Depression Breast cancer Colorectal cancer Stroke Social History Smoking Status: Never smoker Tobacco Type: Cigarettes Age Started Using Tobacco: 19; Age Quit Using Tobacco: 31; Cigarettes Per Day: 10; Second Hand Exposure: No; Do You Dip or Chew Tobacco: No; Hx Alcohol Use: No Hx Substance Use: No Preferred Language: Zimbabwean Communication Ability: Effective Visual Impairment: Limited Hearing Ability: Use of Hearing Aid Banquet Waiter/Waitress Required: No marital status: Current Living Situation: Spouse current occupational status: retired Feels Safe at Home: Yes Childhood Exposure to Second-Hand Smoke: No Diet: regular caffeine: No Dental Care, Regularly: Yes Physical Activity Frequency: Daily Physical Activity Frequency Comment: walking daily Seatbelt Use: always Sunscreen Use: No Assistive Devices: Glasses Physical Exam Physical Exam: Physical Exam: General: In no acute distress, stated age, well-nourished, good hygiene HEENT: Normocephalic, atraumatic, no scleral icterus, pupils around round, symmetrical, and reactive to light, moist mucus membranes, trachea midline, no thyromegaly Chest/Pulm: No respiratory distress, symmetrical chest expansion, clear breath sounds throughout Cardiac: RRR, 3/6 systolic murmur noted Abdomen: Negative for ascites and bruising, normoactive bowel sounds, soft, non-tender to palpation throughout Musculoskeletal: Symmetrical and without signs of acute trauma, upper and lower extremities with full ROM, no atrophy, spasticity, or flaccidity Extremities: Radial, dorsalis pedis, and posterior tibial pulses are intact and symmetrical, no edema noted in the BL LE's Skin: Warm, dry, no rashes , lesions, or scars noted Neuro: Alert and oriented to person, place, month, year, and president, no focal defects, CN II-XII tested and intact, negative cerebellar and pronator drift testing in the BL UE's, no tremors noted Psych: No acute distress, calm and cooperative during the exam Results & Data Results & Data Vital Signs (Past 12 Hours) Vital Signs Temp Pulse Pulse Resp BP BP Pulse Ox 11/27/23 15:06 60 17 99 11/27/23 14:30 185/62 H 11/27/23 14:30 185/62 H 11/27/23 14:30 51 L 14 99 11/27/23 14:06 66 12 99 11/27/23 13:30 51 L 19 183/79 H 99 11/27/23 13:03 52 L 20 187/84 H 97 11/27/23 12:41 64 11/27/23 12:32 65 21 214/79 H 96 11/27/23 12:00 62 22 213/95 H 98 11/27/23 11:42 36.3 C L 64 16 199/97 H 97 O2 Del Method 11/27/23 15:06 11/27/23 14:30 11/27/23 14:30 11/27/23 14:30 11/27/23 14:06 11/27/23 13:30 11/27/23 13:03 11/27/23 12:41 11/27/23 12:32 Room Air 11/27/23 12:00 Room Air 11/27/23 11:42 Room Air Laboratory Results Abnormal lab results 11/27/23 11/27/23 Range/Units 12:00 12:38 RDW Std Deviation 47.9 H (36.4-46.3) fL BUN 40 H (6-23) mg/dl Creatinine 1.39 H (0.6-1.2) mg/dl BUN/Creatinine Ratio 28.8 H (10-20) Glucose 115 H (70-99(Fasting)) mg/dl Calcium 11.7 H (8.6-10.3) mg/dl Troponin I High Sens 16.2 H (0-14) pg/ml Total Protein 8.4 H (6.0-8.3) gm/dl Ur Leukocyte Esterase Trace H (Negative) Diagnostic Findings Chest X-Ray 11/27/23 12:25 XR chest 1V portable HISTORY: neuro deficit, acute stroke suspected COMPARISON: Chest CT 03/22/2021. FINDINGS: No pneumothorax. No pleural effusions. No new focal lung consolidations to suggest a pneumonia. No evidence for pulmonary edema. The cardiac silhouette remains enlarged. There are calcifications within the aortic knob. No acute fractures identified. There is again noted a 15 mm irregular nodule within the periphery the right upper lobe. IMPRESSION: 1. No acute process within the chest. 2. Stable cardiomegaly. 3. Redemonstration of the 15 mm irregular right upper lobe nodule. ACT 112: Negative or not required by law. Electronically signed by: Star Linn M.D. 11/27/2023 12:[address] 11/27/23 12:25 CT angio head w con, CT head/brain wo con CLINICAL HISTORY: neuro deficit, acute stroke suspected TECHNIQUE: Contiguous axial CT images of the head were acquired from the base of the skull to the vertex without intravenous contrast administration. CT angiography of the head was performed following intravenous administration of iodinated contrast. Coronal and sagittal MIPS were obtained from the axial data set and were submitted for review. Automated dose lowering techniques and/or adjustment according to patient size were utilized for this examination. All measurements were calculated based on NASCET criteria. Comparison: None available at the time of this dictation. FINDINGS: CT head: There is no acute intracranial hemorrhage or evidence of acute territorial infarction. No shift of the midline structures, mass effect, or extra-axial abnormalities are shown. CTA Head: The anterior and posterior cerebral circulations are patent. origin of the left posterior cerebral artery is seen. IMPRESSION: 1. No acute intracranial hemorrhage, evidence of acute territorial infarction, or other acute intracranial disease process. 2. No occlusion, hemodynamically significant stenosis, aneurysm, dissection, or arteriovenous malformation in the major intracranial arteries. Assessment of stenosis of the internal carotid arteries is based on NASCET criteria. ACT 112: Negative or not required by law. Electronically signed by: Yann Romo M.D. 11/27/2023 2:34 PM Head CTA 11/27/23 12:25 CT angio head w con, CT head/brain wo con CLINICAL HISTORY: neuro deficit, acute stroke suspected TECHNIQUE: Contiguous axial CT images of the head were acquired from the base of the skull to the vertex without intravenous contrast administration. CT angiography of the head was performed following intravenous administration of iodinated contrast. Coronal and sagittal MIPS were obtained from the axial data set and were submitted for review. Automated dose lowering techniques and/or adjustment according to patient size were utilized for this examination. All measurements were calculated based on NASCET criteria. Comparison: None available at the time of this dictation. FINDINGS: CT head: There is no acute intracranial hemorrhage or evidence of acute territorial infarction. No shift of the midline structures, mass effect, or extra-axial abnormalities are shown. CTA Head: The anterior and posterior cerebral circulations are patent. origin of the left posterior cerebral artery is seen. IMPRESSION: 1. No acute intracranial hemorrhage, evidence of acute territorial infarction, or other acute intracranial disease process. 2. No occlusion, hemodynamically significant stenosis, aneurysm, dissection, or arteriovenous malformation in the major intracranial arteries. Assessment of stenosis of the internal carotid arteries is based on NASCET criteria. ACT 112: Negative or not required by law. Electronically signed by: Yann Romo M.D. 11/27/2023 2:34 PM Neck CTA 11/27/23 12:25 CT angio neck with con CLINICAL HISTORY: 88 years-old Female with neuro deficit, acute stroke suspected. Acute strokelike symptoms COMPARISON STUDY: CTA head of same day TECHNIQUE: Following the IV administration of 120 of Optiray, CT angiogram of the neck was performed from the aortic arch to the skull base. Images are reviewed in the axial, sagittal, and coronal planes. 3-D MIPS images are created and assessed. IV contrast was administered without complication. All measurements were calculated based on NASCET criteria. A dose lowering technique was utilized adhering to the principles of ALARA. CT DOSE: 1004.75 mGy.cm FINDINGS: Atherosclerosis of the aorta. Images opacified pulmonary arteries unremarkable. Three-vessel morphology of the thoracic arch. There is patency of the innominate and imaged subclavian arteries. The common carotid arteries are patent. Atherosclerosis of the carotid bulbs and proximal cervical segments of the internal carotid arteries causing less than 50% stenosis bilaterally. Dominant left vertebral artery. The vertebral arteries are patent bilaterally. No aneurysm, dissection, high-grade stenosis or arterial occlusion identified. The apices are clear without pneumothorax. Borderline enlarged subcarinal lymph nodes. Unremarkable soft tissues. No acute fracture. Degenerative changes of the cervical spine. IMPRESSION:Atherosclerosis without aneurysm, dissection, high-grade stenosis or arterial occlusion. ACT 112: Negative or not required by law. The above report was generated using voice recognition software. It may contain grammatical, syntax or spelling errors. Electronically signed by: Deo Savage M.D. 11/27/2023 2:34 PM ECG Additional Comments: Sinus rhythm with 1st degree A-V block Left axis deviation Left ventricular hypertrophy with repolarization abnormality ( R in aVL , [facility] product , Romhilt-Kulkarni ) Abnormal ECG When compared with ECG of 27-JAN-2023 10:01, (unconfirmed) ST now depressed in Anterior leads Code Status & VTE Plan Code Status DNR/DNI VTE Prophylaxis Plan VTE Prophylaxis will be ordered: Yes Supervising Physician Co-Signing Physician Notes Patient seen and examined, chart reviewed, case discussed with Germán Dimas PA-C and I agree with the assessment and plan as above except as otherwise noted Labs and images reviewed 88-year-old female past medical history of CKD, hypertension, hyperparathyroidism, neurogenic claudication who presents to the ER for evaluation of episodes of a feeling of doom. She reports that she has had 3 episodes sitting in 1 episode standing, standing ambulation does not seem to affect the frequency of these. She reports the episode comes on and feels like a wave of black Which passes over her head and she has an intense feeling of dread and doom which lasts maybe a minute or 2. She has not lost consciousness with these episodes but is also not able to respond and she feels she has to focus on letting them pass. When she had 1 episode while standing she did have to hold the counter as she feels like she might of fallen until it passed. These episodes were not observed by her daughter. She did not have any incontinence or tremors. Has reportedly had spells of staring off without responding. Troponin on admission is mildly elevated with repeat 22.0. She does not appear particularly anxious at the bedside. Also has a history of hyperparathyroidism with hypercalcemia. Hypercalcemia and hx hyperparathyroidism. Calcium is 11.7 ionized calcium pending.? Symptomatic hypercalcemia with hallucinations. Saw [facility] in 2022. Had RL parathyroid adeoma removed, and imagine showed normal RU parathyroid gland. Declined trial of sensipar as outpatient. Susepcted to have familiarl isolated hyperparathyroidism. Recommended for Reclast tx. fortunately is not currently numbness, and use is contraindicated due to creatinine clearance of 18. Recommended Sensipar. Patient reports her tube backer and two other physicans have also recommended this to herbut has declined this multiple times due to concerns about side effects. Her calcium is higher than it however has been in the past, could be related to her current symptoms and can contribute to resistant hypertension which could progress her kidney disease she is now considering this but does not want to be treated with Sensipar overnight and will make a final decision in the morning. She is on Lasix for lower extremity edema, will add 1 L fluid bolus w/ lasix IV twice daily to help facilitate clearance. LR discontinued to minimize calcium intake. She appears near euvolemic at bedside. MM moist. Also with hx of PVCs and mildly elevated trop. Echo pending. Follow on tele. No chest pain at any point. ?transient arrythmia as etiology. EKG with some lateral ST depressions which are similar to prior. Likely elevated troponin, including and repeat. Remains chest pain-free on reassessment Dx includes partial seizure activity. EEG is pending. MRI is without acute change Agree w/ above PG Care Time/CCT Total # of Minutes Spent Total Time Spent with Patient: Total time spent is greater than 50% in coordination of care (as documented) at patient's floor/unit and/or counseling patient: Coding [place] [address] INT INP/OBS CARE 2/55MIN Patient Type Established Medical Decision Making Moderate Complexity Diagnoses Disturbed cognition R41.89 Elevated troponin I level R79.89 Essential hypertension I10 Hypertension type: essential hypertension (3) Hypertension Hypertension type: essential hypertension Qualified Code(s): I10 - Essential (primary) hypertension
[2023-11-27] MEDS ORDERED: PHARMACIST DISCHARGE MED REC CONSULT PRN (15:53)
[2023-11-27] MEDS: LACTATED RINGER'S 1,000 ML IV SCH (16:38)
[2023-11-27] MEDS: LOSARTAN POTASSIUM 25 MG TAB PO STA (18:04)
[2023-11-27 18:42] LABS: Thyroid Stimulating Hormone 1.336 uIu/ml (0.300-4.500)
--- NOTE | 2023-11-27 19:24 | Magnetic Resonance Report ---
MR brain wo con CLINICAL HISTORY: stroke evaluation TECHNIQUE: Multiplanar and multisequence MR images of the brain were obtained without intravenous con trast. Comparison: Comparison is made to CTA head and neck 11/27/2023 FINDINGS: No abnormal restricted diffusion is identified. Foci of T2 and FLAIR hyperintensity are noted in the paraventricular areas consistent with chronic small vessel ischemic disease. The ventricular system i s normal in appearance. No mass is seen. There is no mass effect or midline shift. There is no eviden ce of acute intraparenchymal hemorrhage. No extra axial fluid collections are seen. The corpus callos um, pituitary gland, and cerebellar tonsils appear grossly unremarkable. Flow voids of the major intracranial arterial vessels are identified. The imaged portions of the para nasal sinuses, mastoid air cells, and orbits are unremarkable. IMPRESSION: No acute abnormality and in particular no evidence of acute infarct. ACT 112: Negative or not required by law. Electronically signed by: Yann Romo M.D. 11/27/2023 7:23 PM
--- NOTE | 2023-11-27 21:22 | Electrocardiogram Report ---
Test Reason : Blood Pressure : / mmHG Vent. Rate : 068 BPM Atrial Rate : 068 BPM P-R Int : 232 ms QRS Dur : 108 ms QT Int : 402 ms P-R-T Axes : 051 -35 149 degrees QTc Int : 427 ms Sinus rhythm with 1st degree A-V block Left axis deviation Left ventricular hypertrophy with repolarization abnormality ( R in aVL , [place] product , Romhilt-E stes ) Abnormal ECG When compared with ECG of 27-JAN-2023 10:01, (unconfirmed) ST now depressed in Anterior leads Confirmed by Rainer Gamble ([id number]) on 11/27/2023 9:22:25 PM Referred By: Rob Pendleton Confirmed By:Rainer Gamble
[2023-11-27] MEDS: amLODIPine BESYLATE 5 MG TAB PO ONE (21:42)
[2023-11-27] MEDS: SODIUM CHLORIDE 0.9% 1,000 ML IV ONE (21:42)
[2023-11-28] MEDS: SODIUM CHLORIDE 0.9% 1,000 ML IV ONE (06:51)
[2023-11-28 07:17] LABS: Basophils # (auto) 0.09 K/uL (0.00-0.20); Basophils % (auto) 1.1 %; Eosinophils # (auto) 0.29 K/uL (0.00-0.50); Eosinophils % (auto) 3.7 %; Hematocrit (blood only) 39.5 % (37.0-47.0); Hemoglobin 12.9 g/dl (12.0-16.0); Immature Granulocytes # (auto) 0.03 K/uL (0.01-0.20); Immature Granulocytes % (auto) 0.4 %; Lymphocytes # (auto) 1.96 K/uL (1.20-3.40); Lymphocytes % (auto) 24.7 %; Mean Corpuscular Hemoglobin 29.9 pg (25.0-34.0); Mean Corpuscular Hgb Conc 32.7 g/dL (32.0-36.0); Mean Corpuscular Volume 91.4 fL (80.0-100.0); Monocytes # (auto) 0.66 K/uL (0.11-0.59); Monocytes % (auto) 8.3 %; Neutrophils # (auto) 4.89 K/uL (1.40-6.50); Neutrophils % (auto) 61.8 %; Platelet Count 169 K/uL (130-400); RDW Coefficient of Variation 13.8 % (11.5-14.5); RDW Standard Deviation 46.6 fL (36.4-46.3); Red Blood Count 4.32 M/uL (4.20-5.40); White Blood Count 7.92 K/ul (4.8-10.8)
--- NOTE | 2023-11-28 07:46 | Electrocardiogram Report ---
Test Reason : Blood Pressure : / mmHG Vent. Rate : 054 BPM Atrial Rate : 054 BPM P-R Int : 234 ms QRS Dur : 110 ms QT Int : 444 ms P-R-T Axes : 091 -27 153 degrees QTc Int : 421 ms Sinus bradycardia with 1st degree A-V block Left ventricular hypertrophy with repolarization abnormality Abnormal ECG When compared with ECG of 27-NOV-2023 11:53, No significant change Confirmed by Gwyn Gomez ([id number]) on 11/28/2023 7:45:54 AM Referred By: Rob Pendleton Confirmed By:Gwyn Gomez
[2023-11-28 07:49] LABS: Prothrombin Time 10.9 Seconds (9.0-12.0)
[2023-11-28 07:52] LABS: Albumin Globulin Ratio 1.3 (0.9-2); Albumin Level 3.7 gm/dl (3.4-5.0); Bilirubin,Total 0.7 mg/dl (0.2-1.0); Calcium 10.5 mg/dl (8.6-10.3); Chol HDL Ratio 2.9 (0-5); Creatinine Clr Calc Pharmacy 21.7 ml/min; Est GFR (African American) 47.7 ml/min; Est GFR (Non-African American) 41.1 ml/min; Globulin 2.8 gm/dl (2.5-4.0); Potassium 4.3 mmol/L (3.5-5.1); Total Protein 6.5 gm/dl (6.0-8.3)
[2023-11-28 08:01] LABS: Estimated Average Glucose 137 mg/dl; Hemoglobin A1C 6.4 % (4.5-5.6)
[2023-11-28] MEDS: METOPROLOL SUCC 50MG EXT REL TAB PO SCH (08:20)
[2023-11-28] MEDS: LOSARTAN POTASSIUM 25 MG TAB PO SCH (08:21)
[2023-11-28] MEDS: FUROSEMIDE INJ 20 MG/2 ML VIAL IV SCH (08:22)
[2023-11-28] MEDS ORDERED: FUROSEMIDE 40 MG TAB PO SCH (09:30)
[2023-11-28] MEDS: FUROSEMIDE 20 MG TAB PO ONE (11:07)
--- NOTE | 2023-11-28 11:55 | Discharge Summary ---
Date of Service November 28, 2023 Admission HPI Per Admitting Provider Jason is an 88-year-old female with a past medical history significant for palpitations, ventricular tachycardia, frequent PVCs, pulmonary hypertension, sinus node dysfunction, hypertension, who presented to the [facility] ED on 11/27/2023 with multiple episodes of episodes of impending doom and staring spells. She was noted to be hypertensive on arrival at 213/95, bradycardic at times with heart rate in the 50s, but otherwise stable. Labs were significant for a creatinine of 1.39 (baseline is near 1.0), calcium of 11.7, initial high-sensitivity troponin of 16, trace leukocyte esterase but othe rwise unremarkable UA. CT of the head and brain without contrast and CTA angio head with con were read as negative for acute manage, evidence acute cortical infarction, or other disease processes. No occlusion, hemodynamically significant stenosis, aneurysm, dissection,. Venous malformation intracranial arteries. CTA of the neck was read as atherosclerosis without aneurysm dissection, or high-grade stenosis or arterial occlusion. ECG shows sinus rhythm with first-degree AV block and ST segment depressions in the anterolateral leads with elevation in the septal leads without change compared to previous on 01/27/2023. Patient was lying in bed in no acute distress at the time of exam with her daughter at bedside, history was obtained from both. Patient explains that over the past 3 months she has had approximately 4 episodes of altered mentation. Each episode has happened while she is sitting at her counter watching TV. Episodes typically happen in the afternoon. She gets a sensation as though something bad is going to happen, she describes it as (impending doom). She then experiences what she describes as a sensation like a black Is over the top of her head. She confirms that she does not actually have vision changes during these episodes. These episodes last typically seconds to 2 minutes and always occur in pairs of 2. Denies headache, changes in vision, hearing, taste, smell, paresthesias, unilateral weakness, chest pain/palpitations, shortness of breath, abdominal pain, nausea/vomiting, dysuria/hematuria, increased urinary frequency, seizure-like activity, loss of bladder or bowel function. While when asked, she does not feel as though she is having increased stress/anxiety prior to these events happening such as a panic attack. She denies recent medication changes, [id number] supplements, alcohol/tobacco use. Her daughter adds that over the past year or so the patient has had multiple episodes where she will suddenly fall asleep for a few seconds and then regained consciousness herself. These episodes can happen while she is mid-conversation. We discussed CODE STATUS, she clearly expresses her wish to be a DNR/DNI. Her daughter is here primary decision maker if she cannot make decisions for self. Please refer to Dr. Carl's attestation for any changes to the treatment plan Admission Exam Per Admitting Provider General: In no acute distress, stated age, well-nourished, good hygiene HEENT: Normocephalic, atraumatic, no scleral icterus, pupils around round, symmetrical, and reactive to light, moist mucus membranes, trachea midline, no thyromegaly Chest/Pulm: No respiratory distress, symmetrical chest expansion, clear breath sounds throughout Cardiac: RRR, 3/6 systolic murmur noted Abdomen: Negative for ascites and bruising, normoactive bowel sounds, soft, non- tender to palpation throughout Musculoskeletal: Symmetrical and without signs of acute trauma, upper and lower extremities with full ROM, no atrophy, spasticity, or flaccidity Extremities: Radial, dorsalis pedis, and posterior tibial pulses are intact and symmetrical, no edema noted in the BL LE's Skin: Warm, dry, no rashes , lesions, or scars noted Neuro: Alert and oriented to person, place, month, year, and president, no focal defects, CN II-XII tested and intact, negative cerebellar and pronator drift testing in the BL UE's, no tremors noted Psych: No acute distress, calm and cooperative during the exam Principal Diagnosis Staring spells, HTN, Hypercalcemia Discharge Exam Constitutional WD/WN, vitals as above Respiratory normal respiratory effort, lungs clear to auscultation Cardiovascular RRR, no murmur, no edema Gastrointestinal (Abdomen) normal bowel sounds, soft, nontender, no hepatosplenomegaly Skin no rashes, warm and dry Neurologic PERRL, EOMI, accommodation nl, no face palsy, no dysarthria Psychiatric A+Ox3, euthymic affect Discharge Data Allergies Allergy/AdvReac Type Severity Reaction Status Date / Time adhesive tape Allergy redness Verified 11/27/23 15:18 acetaminophen AdvReac Unknown CHEMICAL Verified 11/27/23 15:18 HEPATITIS capsaicin AdvReac Unknown "VOLTAREN" Verified 11/27/23 15:18 CHEMICAL HEPATITIS diclofenac AdvReac Unknown "VOLTAREN" Verified 11/27/23 15:18 CHEMICAL HEPATITIS Diclopak AdvReac Unknown "VOLATEN" Verified 06/08/09 03:30 CHEMICAL HEPATITIS Consultations 11/27/23 15:10 ED Decision to Admit Stat Ordered Studies 11/27/23 12:25 CT angio head w con Stat CT angio neck with con Stat CT head/brain wo con Stat 11/27/23 16:13 MRI Brain [MR brain wo con] Urgent Hospital Course (1) Disturbed cognition: (2) Elevated troponin I level: (3) Hypertension: (4) Hypercalcemia: (5) Hyperparathyroidism: Plan 88-year-old female with a past medical history significant for palpitations, ventricular tachycardia, frequent PVCs, pulmonary hypertension, sinus node dysfunction, hypertension, who presented to the [facility] ED on 11/27/2023 with multiple episodes of episodes of impending doom and staring spells. Disturbed Cognition, Staring spells: Presented to the ED at the recommendation of her PCP due to multiple episodes of alterations in cognition over the past 3 months Patient describes approximately 4 episodes of initial impending doom followed by sensation that dark cap is over her head Denies other focal neuro defects, denies feeling increased anxiety prior to these events Chest x-ray, CT of the head without contrast, and CTA of head and neck were negative for acute findings. MRI brain negative. No focal neuro defects on exam - Acute pathology ruled out but etiology remains unclear, suspect due to uncontr olled HTN (BP 213/95 on arrival) vs secondary to hypercalcemia (see below) - if sx recur despite treatment of both problems, could consider neurology referral for EEG. 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 When this was cleared up, patient was more amenable to trial of medication. Discharged with rx for Sensipar 30mg BID. Recommend labs to recheck calcium level in 2-4 weeks with further titration as needed. Total Time Total Time Spent Total Time Spent (In Minutes): see attending attestation Discharge Plan Discharge Items Patient Disposition: Home - Self-Care Reason For Visit: STARRING SPELLS Discharge Diagnosis: Staring spells Activity: Resume your previous activity Non-emergency contact: Primary Care Provider and Specialist Call non-emergency contact if: you have any medication questions and your symptoms worsen Follow-up/Referrals: Rob Pendleton DO [Primary Care Provider] - 12/08/23 2:00 pm Diet: Heart Healthy Addtl Attending Provider Instructions: You were admitted to the hospital for work up of staring spells. We did a fairly thorough work up including advanced imaging, which did not show anything that could explain these symptoms. It is most likely that your symptoms were caused by your elevated blood pressure, though they may possibly also be related to your elevated calcium level. To address your elevated blood pressure, a new medication called Losartan was started. To address the elevated calcium level, we recommend started a medication called Cinacalcet (Sensipar). Your outpatient doctor will be able to help you adjust these medications as needed. A discharge summary will be sent to your primary care physician to ensure continuity of care. Please bring this discharge summary with you to your next office appointment so that your provider can review it at that time. Medications: Your medication list has been reviewed and reconciled upon discharge to ensure accuracy and continuity of care. An updated list of all your medications is included with your hospital discharge paperwork. Please review this list closely and make note of any changes to your medications. New Medications: - Cinacalcet (Sensipar): Please take 1 tablet twice daily. - Losartan: Please take 1 tablet once daily. Follow up appointments: - Make a follow up appointment with your PCP within the next week. It is very important that you follow up with them shortly after discharge from the hospital. - Keep all of your follow up appointments as already scheduled. If you cannot make an appointment, notify your provider. CONTACT YOUR PRIMARY CARE PROVIDER if you experience any of the following: - Difficulty following your treatment plan - Difficulty taking any of your medications CALL 911 OR GO TO THE EMERGENCY DEPARTMENT if you experience any of the following: - Sudden, severe abdominal pain or nausea/vomiting - Severe chest pain or chest pain that radiates to your jaw or arm - Sudden, severe shortness of breath or difficulty breathing Pending Studies at Discharge: No Stand-Alone Forms: My [facility] [employer], Smoking Cessation Medications and DC Order Prescriptions: New losartan 25 mg Tablet 25 mg PO QAM 30 Days Qty: 30 0RF cinacalcet 30 mg tablet 30 mg PO BID 30 Days Qty: 60 0RF Continued Lactobacillus acidophilus [Acidophilus] capsule 10 mg PO QAM multivitamin [Daily Multiple] tablet 1 tab PO QAM omega-3 fatty acids [Fish Oil Concentrate] 1,000 mg capsule 1,000 mg PO DAILY (DME) Wheeled [facility] See Rx Instructions .Route Qty: 1 0RF Rx Instructions: As directed furosemide 20 mg tablet 20 mg PO DAILY Rx Instructions: TAKE 1 TABLET BY MOUTH DAILY Discontinued metoprolol succinate 50 mg tablet extended release 24 hr 50 mg PO DAILY Qty: 90 3RF Discharge Orders: Discharge Order (Routine); Ordered 11/28/23 Ordered By: Dayday [place] Admission Data Admit Date/Time: 11/27/23 15:53 Attending Provider: Tessa Garcias Admit Provider: Petr Carl Primary Care Provider: Rob Pendleton Other Providers: Petr Carl Other Interventions: Discharge Summary Assessment (RN) Last Done: 11/28/23 12:40 Supervising Physician Co-Signing Physician Notes Attending Physician Supervision Note: I independently interviewed and examined the patient and verified the starkey history and physical, reviewed labs and image studies and agree with findings and care plan noted above. Episodes of impending doom with dark cap over few months - systolic pressure in ED >200 systolic. Suspect hypertensive encephalopathic response. -received dose of amlodipine on admission. Sent home on new rx of daily losartan. -will need further titration as outpatient. Also noted bradycardia into 40s to 50s. Limited chronotropic response. Persistent bradycardia could lead to hypertensive reponse. -d/rachelle metoprolol. Patient informed by phone. Possible concern of partial seizure -EEG ordered but couldn't be done during hospital stay. -if symptoms persists - could get it done as outpatient. consider neuro referral. Hypercalcemia - known primary hyperparathyroidism with h/o 2 separate surgeries for adenomas removal. Also had third evaluation d/t increasing calcium level but no adenoma found. Has been reluctant to using sensipar recommended by endocrinology. -level improved from 11.7 to 10.5 with IVF hydration. -agreeable to using sensipar now. Rx sent.
[2023-11-28] MEDS ORDERED: SODIUM CHLORIDE 0.9% 1,000 ML IV SCH (16:00)
--- NOTE | 2023-11-28 20:20 | Electrocardiogram Report ---
Test Reason : Blood Pressure : / mmHG Vent. Rate : 055 BPM Atrial Rate : 055 BPM P-R Int : 248 ms QRS Dur : 106 ms QT Int : 446 ms P-R-T Axes : 069 -31 -06 degrees QTc Int : 426 ms Sinus bradycardia with 1st degree A-V block Left axis deviation Left ventricular hypertrophy with repolarization abnormality Abnormal ECG When compared with ECG of 27-NOV-2023 21:37, No significant change Confirmed by Gwyn Gomez ([id number]) on 11/28/2023 8:20:15 PM Referred By: Rob Pendleton Confirmed By:Gwyn Gomez
== END 2023-11-28 13:55 | disposition home or self-care (01) ==
LOC: ED 11:39 → 2N 11:39 → SUATTDRO 15:53 → 2N 20:00

== ENCOUNTER 2024-04-13 21:05 | Inpatient (IN) ==
[2024-04-13 21:38] LABS: Basophils # (auto) 0.09 K/uL (0.00-0.20); Basophils % (auto) 0.7 %; Eosinophils # (auto) 0.11 K/uL (0.00-0.50); Eosinophils % (auto) 0.8 %; Hematocrit (blood only) 36.8 % (37.0-47.0); Hemoglobin 12.1 g/dl (12.0-16.0); Immature Granulocytes % (auto) 0.7 %; Lymphocytes # (auto) 1.51 K/uL (1.20-3.40); Mean Corpuscular Hemoglobin 30.4 pg (25.0-34.0); Mean Corpuscular Hgb Conc 32.9 g/dL (32.0-36.0); Mean Corpuscular Volume 92.5 fL (80.0-100.0); Mean Platelet Volume 11.8 fL (9.4-12.4); Monocytes # (auto) 0.99 K/uL (0.11-0.59); Monocytes % (auto) 7.2 %; Neutrophils # (auto) 10.94 K/uL (1.40-6.50); Neutrophils % (auto) 79.6 %; Platelet Count 225 K/uL (130-400); RDW Coefficient of Variation 13.7 % (11.5-14.5); RDW Standard Deviation 46.7 fL (36.4-46.3); Red Blood Count 3.98 M/uL (4.20-5.40); White Blood Count 13.74 K/ul (4.8-10.8)
[2024-04-13 21:53] LABS: Albumin Globulin Ratio 1.2 (0.9-2); Albumin Level 4.4 gm/dl (3.4-5.0); BUN Creatinine Ratio 31.9 (10-20); Bilirubin,Total 1.3 mg/dl (0.2-1.0); Calcium 8.9 mg/dl (8.6-10.3); Globulin 3.6 gm/dl (2.5-4.0); Potassium 4.4 mmol/L (3.5-5.1)
[2024-04-13 22:41] LABS: Troponin I High Sensitivity 72.6 pg/ml (0-14)
--- NOTE | 2024-04-13 22:46 | Emergency Department Note ---
Impression & Plan Acute left flank pain, V-tach, Acute pyelonephritis, Leukocytosis ED Provider Note NAME: RITESH TOVAR AGE: 88 SEX: F : 1935 ARRIVES VIA: Walk-In INFORMANT: [Patient][family] ED PROVIDER(S): [Mac Oscar MD] CHIEF COMPLAINT: Flank pain HISTORY OF PRESENT ILLNESS: The patient is an 88-year-old female who presents to the ER with complaints of left flank pain all day today. The pain does at times worsen with movement. It feels like pressure. She has not had cough or fever. No urinary complaints. No vomiting. The patient states that she has not felt herself for a few days, the pain did not start though until today. Patient also has had a decrease in her bowel movements and feels a bit bloated. She feels her belly is pushing up on her diaphragm. PMHx/PSHx/Social Hx: See Below PHYSICAL EXAM: GENERAL: Patient is in no acute distress. HEENT: No acute trauma, normocephalic atraumatic, mucous membranes moist, no nasal congestion. NECK: No stridor, no adenopathy, no meningismus, trachea is midline. LUNGS: Clear to auscultation bilaterally, no wheeze, no rhonchi, breath sounds equal. HEART: 3/6 systolic murmur, irregular rhythm. Normal rate. ABDOMEN: Soft, mildly tender in the epigastrium, mild distention. EXTREMITIES: No cyanosis, full range of motion of all the joints without pain or difficulty. NEUROLOGIC: Oriented x 3, no acute motor or sensory deficits, no focal weakness. SKIN: No jaundice, no diaphoresis. Back: Tender to the left flank, no rash. There is some left CVA discomfort with percussion. DIFFERENTIAL DIAGNOSIS: Musculoskeletal pain, renal colic, pyelonephritis, pneumonia, pancreatitis, gastritis, among others. EMERGENCY DEPARTMENT PROCEDURES: MEDICAL DECISION MAKING: There is a mild leukocytosis, this would be consistent with infection. There was a normal hemoglobin and platelet count. Creatinine was slightly elevated however, the patient does have a history of chronic renal failure. No electrolyte abnormality in need of emergent correction. No concerning liver enzyme elevation. There was a an elevation to the lipase consistent with potential early pancreatitis. Urinalysis did suggest infection. Abdominal and pelvis CT did not show urinary obstruction or bowel obstruction. No acute surgical process. ECG showed a sinus rhythm with frequent PVCs. Cardiac troponin testing was slightly elevated, this troponin elevation could be secondary to cardiac injury or potentially just mismatch. Further cardiac workup will be needed. A chest x-ray was done, there was no pneumonia. On exam, the patient was tender in the area of the left flank. The patient received IV saline, 1 L. She received IV ceftriaxone for the pyelonephritis. Because of the frequent PVCs and the very short run of V. tach noted on the monitor, patient was given 2.5 mg of IV Lopressor. I do think the patient requires a hospital stay. She has pyelonephritis, she has frequent PVCs and had a short-lived run of V. tach caught on our cardiac monitor technician. Further cardiac monitoring, IV antibody therapy, hydration is warranted. I spoke with the patient and case management. The on-call hospitalist was consulted. Prior/Outside records/notes reviewed: None ECG per my interpretation: Indication was flank pain. The ECG shows a sinus rhythm with frequent PVCs in a pattern of bigeminy. The rate is 91. There is some nonspecific ST change. No ST elevation. QTc was 501. LVH was seen. Continuous Cardiac Monitoring per my interpretation: An order was placed for continuous cardiac monitoring. The monitor shows a rate of 84 with sinus rhythm with PVCs. Of note, the patient did have a short run of ventricular tachycardia. There was a 9 beat run. Imaging/x-ray results per my interpretation: Chest x-ray does not show mediastinal widening, CHF or pneumonia. Chronic Medical/Social conditions affecting care: Advanced age. Care/Management discussed with: Case management, the on-call hospitalist. Level of care consideration(s): After review of the information above and other included data: --I believe the patient requires escalation of care to admission Critical Care Note: I have personally spent 51 minutes of critical care time in the direct management of this patient. This includes bedside care, interpretation of diagnostic studies, and testing, discussion with consultants, patient, and family members, and other required patient management activities. This 51 minutes is in excess of all separately billable procedures. 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 Allred Surgical History H/O ovarian cystectomy H/O dilation and curettage H/O colonoscopy History of lumbar laminectomy S/P tonsillectomy S/P total parathyroidectomy History of cataract surgery H/O breast biopsy mult - benign History of appendectomy Family History Mother Muscle pain Hypertension Father Myocardial infarction Renal failure Hypertension Sister Glaucoma Hyperparathyroidism Denies family history of Ovarian cancer Prostate cancer Diabetes Depression Breast cancer Colorectal cancer Stroke Social History Smoking Status: Never smoker Tobacco Type: Cigarettes Age Started Using Tobacco: 19; Age Quit Using Tobacco: 31; packs per day: 1; Cigarettes Per Day: 10; Second Hand Exposure: No; Do You Dip or Chew Tobacco: No; Hx Alcohol Use: No Hx Substance Use: No Preferred Language: Chinese Communication Ability: Effective Visual Impairment: Limited Hearing Ability: Use of Hearing Aid Sample Steamer Required: No Beliefs That Will Affect Care: None marital status: / Current Living Situation: Alone current occupational status: retired Feels Safe at Home: Yes Childhood Exposure to Second-Hand Smoke: No Diet: regular caffeine: No Dental Care, Regularly: Yes Physical Activity Frequency: Daily Physical Activity Frequency Comment: walking daily Seatbelt Use: always Sunscreen Use: No Assistive Devices: Cane and Hearing Aid - Bilateral Allergies Allergies Allergy/AdvReac Type Severity Reaction Status Date / Time adhesive tape Allergy redness Verified 02/04/24 09:31 acetaminophen AdvReac Unknown CHEMICAL Verified 02/04/24 09:31 HEPATITIS capsaicin AdvReac Unknown "VOLTAREN" Verified 02/04/24 09:31 CHEMICAL HEPATITIS diclofenac AdvReac Unknown "VOLTAREN" Verified 02/04/24 09:31 CHEMICAL HEPATITIS Diclopak AdvReac Unknown "VOLATEN" Verified 06/08/09 03:30 CHEMICAL HEPATITIS Home Meds Home Medications Medication Instructions Recorded Confirmed Lactobacillus acidophilus 10 mg PO QAM 11/15/18 04/14/24 (Acidophilus capsule) furosemide 20 mg tablet 20 mg PO QAM 04/14/24 04/14/24 multivitamin 1 tab PO QAM 04/14/24 04/14/24 omega 0-hbf-xzz-fish oil 1,200 mg 1 cap PO QAM 04/14/24 04/14/24 (144 mg-216 mg) capsule (Fish Oil) Previous Rx's Medication Instructions Recorded losartan 25 mg tablet 25 mg PO QAM #90 tabs 12/09/23 cinacalcet 30 mg tablet 30 mg PO DAILY 90 days #90 tabs 02/04/24 Results & Data (ED) Vital Signs Vital Signs - 24 hr 04/13/24 21:07 04/13/24 21:41 04/13/24 22:00 Temperature 36.6 C Temperature Source Oral Pulse Rate 61 90 Pulse Rate from SpO2 Sensor Respiratory Rate 22 Respiratory Effort / Characteristics Non-Labored Spontaneous Respiratory Depth Normal Respiratory Pattern Regular Blood Pressure 137/55 L 130/75 Blood Pressure Mean 82 80 Blood Pressure Position Sitting Pulse Oximetry 93 Oxygen Delivery Method Room Air Sepsis Recent Fever Within 48 Hours No Sepsis New/Unexplained Change in Mental Status N/A Sepsis Action Taken by Nursing No Action Required 04/13/24 22:00 04/13/24 22:53 04/13/24 23:00 Temperature Temperature Source Pulse Rate 77 87 Pulse Rate from SpO2 Sensor 78 Respiratory Rate 21 30 H Respiratory Effort / Characteristics Respiratory Depth Respiratory Pattern Blood Pressure 130/75 143/93 H 127/49 L Blood Pressure Mean 93 80 Blood Pressure Position Pulse Oximetry 99 96 Oxygen Delivery Method Room Air Room Air Sepsis Recent Fever Within 48 Hours Sepsis New/Unexplained Change in Mental Status Sepsis Action Taken by Long-Term Medications Current Medication List: was personally reviewed by [place] Laboratory Data Attestation: I reviewed the patient's lab results. 04/13/24 21:25 04/13/24 21:25 Lab Results 04/13/24 04/13/24 Range/Units 21:25 23:32 WBC 13.74 H (4.8-10.8) K/ul RBC 3.98 L (4.20-5.40) M/uL Hgb 12.1 (12.0-16.0) g/dl Hct 36.8 L (37.0-47.0) % MCV 92.5 (80.0-100.0) fL MCH 30.4 (25.0-34.0) pg MCHC 32.9 (32.0-36.0) g/dL RDW Std Deviation 46.7 H (36.4-46.3) fL RDW Coeff of [place] 13.7 (11.5-14.5) % Plt Count 225 (130-400) K/uL MPV 11.8 (9.4-12.4) fL Immature Gran % (Auto) 0.7 % Neut % (Auto) 79.6 % Lymph % (Auto) 11.0 % [place] % (Auto) 7.2 % Eos % (Auto) 0.8 % Baso % (Auto) 0.7 % Neut # (Auto) 10.94 H (1.40-6.50) K/uL Lymph # (Auto) 1.51 (1.20-3.40) K/uL [place] # (Auto) 0.99 H (0.11-0.59) K/uL Eos # (Auto) 0.11 (0.00-0.50) K/uL Baso # (Auto) 0.09 (0.00-0.20) K/uL Immature Gran # (Auto) 0.10 (0.01-0.20) K/uL Sodium 136 (136-145) mmol/L Potassium 4.4 (3.5-5.1) mmol/L Chloride 101 (98-107) mmol/L Carbon Dioxide 24 (21-32) mmol/L Anion Gap 11 (3-11) BUN 45 H (6-23) mg/dl Creatinine 1.41 H (0.6-1.2) mg/dl Est Cr Clr Drug Dosing 21.0 ml/min eGFR 35.88 BUN/Creatinine Ratio 31.9 H (10-20) Glucose 145 H (70-99(Fasting)) mg/dl Calcium 8.9 (8.6-10.3) mg/dl Magnesium 2.0 (1.7-2.4) mg/dl Total Bilirubin 1.3 H (0.2-1.0) mg/dl AST 26 (13-39) U/L ALT 15 (7-52) U/L Alkaline Phosphatase 50 (34-104) U/L Troponin I High Sens 72.6 H* (0-14) pg/ml Total Protein 8.0 (6.0-8.3) gm/dl Albumin 4.4 (3.4-5.0) gm/dl Globulin 3.6 (2.5-4.0) gm/dl Albumin/Globulin Ratio 1.2 (0.9-2) Lipase 170 H (11-82) U/L Urine Color Yellow Urine Appearance Cloudy A (Clear) Urine pH 6.0 (4.5-7.5) POC Urine pH 5 (4.5-7.5) Ur Specific [place] 1.021 (1.000-1.030) Urine Protein 1+ H (Negative) POC Urine Protein 1+ H (Negative) Urine Glucose (UA) Negative (Negative) POC Ur Glucose (UA) Normal (Normal) Urine Ketones 1+ H (Negative) POC Urine Ketones 2+ (Moderate) H (Negative) Urine Blood Negative (Negative) POC Urine Blood Trace H (Negative) Urine Nitrite Negative (Negative) POC Urine Nitrite Negative (Negative) Urine Bilirubin Negative (Negative) POC Urine Bilirubin Negative (Negative) Urine Urobilinogen Negative (Negative) POC Urine Urobilinogen Normal (Normal) Ur Leukocyte Esterase 3+ H (Negative) POC U Leukocyte Esteras 2+ H (Negative) Urine WBC (Auto) >50 H (0-5) /hpf Urine RBC (Auto) 0-2 (0-2) /hpf U Hyaline Cast (Auto) 3-5 H (0-2) /lpf U Epithel Cells (Auto) 6-10 H (0-2) /hpf Urine Bacteria (Auto) 1+ H (None Seen) Administered Medications Sodium Chloride (Nss) 500 mls @ 999 mls/hr IV .Q31M ONE Stop: 04/14/24 00:36 Last Admin: 04/14/24 00:29 Dose: 999 mls/hr Documented By: ADRIANA Discontinued Medications Sodium Chloride (Nss) 500 mls @ 999 mls/hr IV .Q31M ONE Stop: 04/13/24 23:09 Last Admin: 04/13/24 22:53 Dose: 999 mls/hr Documented By: CHRISTIANO Ceftriaxone Sodium (Rocephin) 2,000 mg in 50 mls @ 100 mls/hr IV NOW STA Stop: 04/14/24 00:17 Last Admin: 04/14/24 00:30 Dose: 100 mls/hr Documented By: ADRIANA Metoprolol Tartrate (Metoprolol Tartrate 1 Mg/Ml Vial) 2.5 mg IV NOW STA Stop: 04/13/24 22:40 Last Admin: 04/13/24 22:53 Dose: 2.5 mg Documented By: CHRISTIANO Imaging Data Radiologist's Impression: Chest X-Ray 04/13/24 21:18 Exam(s): XR CXR 1 VIEW EXAM: XR Chest, 1 View CLINICAL HISTORY: Reason for exam: abd pain, CP, SOB. TECHNIQUE: Frontal view of the chest. COMPARISON: No relevant prior studies available. FINDINGS: Lungs: No consolidation. No overt edema. Pleural space: No pleural effusion. No pneumothorax. Heart: Cardiomegaly. IMPRESSION: 1. No acute cardiopulmonary abnormality. 2. Cardiomegaly. Electronically signed by: Doc Jackson MD 04/13/24 23:07 PM Abdomen/Pelvis CT 04/13/24 21:36 Exam(s): CT ABDOMEN + PELVIS Without Contrast EXAM: CT Abdomen and Pelvis Without Intravenous Contrast CLINICAL HISTORY: Reason for exam: flank pain. TECHNIQUE: Axial computed tomography images of the abdomen and pelvis without intravenous contrast. CTDI is 18.03 mGy and DLP is 726.38 mGy-cm. Automated exposure control was utilized for the study. A dose lowering technique was utilized adhering to the principles of ALARA. COMPARISON: CT 04/30/2020 FINDINGS: ABDOMEN: Liver: Unremarkable. Gallbladder and bile ducts: Unremarkable. Pancreas: Unremarkable. Spleen: Unremarkable. Adrenals: Unremarkable. Kidneys and ureters: No ureteral stone or obstructive uropathy. Stomach and bowel: Unremarkable. PELVIS: Appendix: No findings to suggest acute appendicitis. Bladder: Unremarkable. Reproductive: Calcified fibroids in the uterus. ABDOMEN and PELVIS: Intraperitoneal space: Unremarkable. No free air. No significant fluid collection. Bones/joints: No acute fracture. Soft tissues: Unremarkable. Vasculature: Aortobiiliac atherosclerotic calcifications. Lymph nodes: Unremarkable. IMPRESSION: No ureteral stone or obstructive uropathy. Electronically signed by: Doc Jackson MD 04/13/24 23:15 PM Discharge Plan Visit Data Chief Complaint: Flank Pain Stated Complaint: FLANK PAIN, CONSTIPATION, POS KIDNEY STONE ED Provider: Mac Oscar Discharge Problem: Acute left flank pain, V-tach, Acute pyelonephritis, Leukocytosis Patient Disposition: Admitted As Inpatient Condition: Fair Forms Stand Alone Forms: Count Includes [facility], Important Visit Information Prescriptions Prescriptions: No Action losartan 25 mg tablet 25 mg PO QAM Qty: 90 3RF Lactobacillus acidophilus [Acidophilus] capsule 10 mg PO QAM cinacalcet 30 mg tablet 30 mg PO DAILY 90 Days Qty: 90 3RF furosemide 20 mg tablet 20 mg PO QAM multivitamin Tablet 1 tab PO QAM omega 6-mrf-gwf-fish oil [Fish Oil] 1,200 (144-216) mg Capsule 1 cap PO QAM Referrals Referrals: Rob Pendleton DO [Primary Care Provider] - Discharge Problem: Leukocytosis Qualifiers: Leukocytosis type: unspecified Qualified Code(s): D72.829 - Elevated white blood cell count, unspecified
[2024-04-13] MEDS: METOPROLOL TARTRATE 1 MG/ML VIAL IV STA (22:53)
[2024-04-13] MEDS: SODIUM CHLORIDE 0.9% 500 ML IV ONE (22:53)
--- NOTE | 2024-04-13 23:09 | XRay Report ---
Exam(s): XR CXR 1 VIEW EXAM: XR Chest, 1 View CLINICAL HISTORY: Reason for exam: abd pain, CP, SOB. TECHNIQUE: Frontal view of the chest. COMPARISON: No relevant prior studies available. FINDINGS: Lungs: No consolidation. No overt edema. Pleural space: No pleural effusion. No pneumothorax. Heart: Cardiomegaly. IMPRESSION: 1. No acute cardiopulmonary abnormality. 2. Cardiomegaly. Electronically signed by: Doc Jackson MD 04/13/24 23:07 PM
--- NOTE | 2024-04-13 23:16 | CT Scan Report ---
Exam(s): CT ABDOMEN + PELVIS Without Contrast EXAM: CT Abdomen and Pelvis Without Intravenous Contrast CLINICAL HISTORY: Reason for exam: flank pain. TECHNIQUE: Axial computed tomography images of the abdomen and pelvis without intravenous contrast. CTDI is 18.03 mGy and DLP is 726.38 mGy-cm. Automated exposure control was utilized for the study. A dose lowering technique was utilized adhering to the principles of ALARA. COMPARISON: CT 04/30/2020 FINDINGS: ABDOMEN: Liver: Unremarkable. Gallbladder and bile ducts: Unremarkable. Pancreas: Unremarkable. Spleen: Unremarkable. Adrenals: Unremarkable. Kidneys and ureters: No ureteral stone or obstructive uropathy. Stomach and bowel: Unremarkable. PELVIS: Appendix: No findings to suggest acute appendicitis. Bladder: Unremarkable. Reproductive: Calcified fibroids in the uterus. ABDOMEN and PELVIS: Intraperitoneal space: Unremarkable. No free air. No significant fluid collection. Bones/joints: No acute fracture. Soft tissues: Unremarkable. Vasculature: Aortobiiliac atherosclerotic calcifications. Lymph nodes: Unremarkable. IMPRESSION: No ureteral stone or obstructive uropathy. Electronically signed by: Doc Jackson MD 04/13/24 23:15 PM
[2024-04-13 23:45] LABS: POC Urine Bilirubin Negative (Negative); POC Urine Blood Trace (Negative); POC Urine Glucose Normal (Normal); POC Urine Leukocytes 2+ (Negative); POC Urine Nitrite Negative (Negative); POC Urine Protein 1+ (Negative); POC Urine Urobilinogen Normal (Normal); POC Urine pH 5 (4.5-7.5)
[2024-04-13 23:52] LABS: Appearance Urine Cloudy (Clear); Bacteria Urine Automated 1+ (None Seen); Bilirubin Urine Negative (Negative); Blood Urine Negative (Negative); Color Urine Yellow; Glucose Urine UA Negative (Negative); Ketones Urine 1+ (Negative); Leukocyte Esterase Urine 3+ (Negative); Nitrite Urine Negative (Negative); Protein Urine 1+ (Negative); RBC Urine Automated 0-2 /hpf (0-2); Specific Gravity Urine 1.021 (1.000-1.030); Urobilinogen Urine Negative (Negative); WBC Urine Automated >50 /hpf (0-5)
--- NOTE | 2024-04-14 00:02 | History & Physical Report ---
Date of Service April 14, 2024 Assessment & Plan (1) Acute pyelonephritis: Plan: -Patient with a leukocytosis of 13, creatinine of 1.41, lipase of 170, UA significant for UTI. -Troponin initially elevated at 72, 2-hour repeat of 70. Most likely demand ischemia. -Chest x-ray showed cardiomegaly otherwise unremarkable. -Abdomen/pelvis CT was negative. No ureteral stones. -Urine cultures pending. -Received ceftriaxone in the ED. Will continue with at this time. -Given 1 L in the ED. Will continue on NSS at 80 mL an hour. (2) V-tach: Plan: -In the ED patient had frequent PVCs and a short run of V. tach. 2.5 mg of Lopressor was given. -Will continue monitoring on telemetry. -Due to having fatigue with metoprolol in the past we will hold off on restarting metoprolol. Has been off it for several weeks now. -Blood pressure and pulse improving with hydration at time of admission. -Did discuss with cardiology on 01/26 and discussion about calcium channel blockers was done at that time. Will hold off on starting anything at this time and treat underlying infection. (3) CKD (chronic kidney disease), stage III: Plan: -Creatinine of 1.41. Elevated BUN. -Continue to monitor with daily labs. (4) Hypertension: Plan: -On losartan and Lasix. -Will hold home medications due to hypotension secondary to pyelonephritis. (5) Hyperparathyroidism: Plan: -Status post parathyroid surgery in 2010 and 2022 which was unsuccessful. -Continue with Sensipar. Plan Fluids: NSS at 80 mL an hour. Nutrition: Heart healthy Code status: DNR/DNI DVT ppx: Lovenox Dispo: PCU/telemetry History of Present Illness Chief Complaint: pyelonephritis, short run vtach Primary Care Provider: Rob Pendleton DO Patient is a 88-year-old female who presents to the hospital with left-sided flank pain. Patient states that since Thursday she has been feeling off. She has been drinking less fluids and food. States that today she started to have sharp pain in her left flank and left. She also had some bloating as well as some shortness of breath. States that the pain feels like pressure. She denies any fevers or chills. No significant abdominal pain but does state she has the bloating. Denies any urinary symptoms. Has not had a bowel movement since Thursday. Of note patient has had episodes of PVCs in the past and was on metoprolol but was taken off of that due to side effects such as lightheadedness with this medication. Allergies Allergy/AdvReac Type Severity Reaction Status Date / Time adhesive tape Allergy redness Verified 02/04/24 09:31 acetaminophen AdvReac Unknown CHEMICAL Verified 02/04/24 09:31 HEPATITIS capsaicin AdvReac Unknown "VOLTAREN" Verified 02/04/24 09:31 CHEMICAL HEPATITIS diclofenac AdvReac Unknown "VOLTAREN" Verified 02/04/24 09:31 CHEMICAL HEPATITIS Diclopak AdvReac Unknown "VOLATEN" Verified 06/08/09 03:30 CHEMICAL HEPATITIS Home Medications Medication Instructions Recorded Confirmed Type Lactobacillus acidophilus 10 mg PO QAM 11/15/18 04/14/24 History (Acidophilus capsule) losartan 25 mg tablet 25 mg PO QAM #90 tabs 12/09/23 04/14/24 Rx cinacalcet 30 mg tablet 30 mg PO DAILY 90 days #90 tabs 02/04/24 04/14/24 Rx furosemide 20 mg tablet 20 mg PO QAM 04/14/24 04/14/24 History multivitamin 1 tab PO QAM 04/14/24 04/14/24 History omega 8-xdf-crh-fish oil 1,200 mg 1 cap PO QAM 04/14/24 04/14/24 History (144 mg-216 mg) capsule (Fish Oil) Past Med/Surg History Problem List Leukocytosis (Acute) Acute pyelonephritis (Acute) V-tach (Acute) Acute left flank pain (Acute) Frequent PVCs Fluttering heart Osteoporosis Osteopenia with very high FRAX score Greater trochanteric bursitis Neurogenic claudication Chronic SI joint pain Lumbar spondylosis 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 Allred Surgical History H/O ovarian cystectomy H/O dilation and curettage H/O colonoscopy History of lumbar laminectomy S/P tonsillectomy S/P total parathyroidectomy History of cataract surgery H/O breast biopsy mult - benign History of appendectomy Family History Mother Muscle pain Hypertension Father Myocardial infarction Renal failure Hypertension Sister Glaucoma Hyperparathyroidism Denies family history of Ovarian cancer Prostate cancer Diabetes Depression Breast cancer Colorectal cancer Stroke Social History Smoking Status: Never smoker Tobacco Type: Cigarettes Age Started Using Tobacco: 19; Age Quit Using Tobacco: 31; packs per day: 1; Cigarettes Per Day: 10; Second Hand Exposure: No; Do You Dip or Chew Tobacco: No; Hx Alcohol Use: No Hx Substance Use: No Preferred Language: Singaporean Communication Ability: Effective Visual Impairment: Limited Hearing Ability: Use of Hearing Aid Chemical Detection Expert Required: No Beliefs That Will Affect Care: None marital status: / Current Living Situation: Alone current occupational status: retired Other Information That Helps Us Care for You: No Feels Safe at Home: Yes Safety Concerns: Feels Safe At This Time Childhood Exposure to Second-Hand Smoke: No Diet: regular caffeine: No Dental Care, Regularly: Yes Physical Activity Frequency: Daily Physical Activity Frequency Comment: walking daily Seatbelt Use: always Sunscreen Use: No Assistive Devices: Cane and Hearing Aid - Bilateral Review of Systems Review of Systems: All systems reviewed & are unremarkable except as noted in Subjective Physical Exam Physical Exam: Constitutional: well-appearing, no acute distress HEENT: NCAT, no conjunctival injection CV: regular rhythm, no murmur appreciated, extremities well-perfused, no LE edema Resp: CTABL, no wheezes/rales/rhonchi appreciated, no increased work of breathing GI: soft, nondistended, nontender, BS normoactive, no suprapubic tenderness, MSK: Mild left flank pain, left-sided CVA tenderness Skin: warm, dry, no rash appreciated Neuro: alert, oriented, no focal neurologic deficit appreciated Results & Data Results & Data Vital Signs (Past 12 Hours) Vital Signs Temp Pulse Resp BP Pulse Ox O2 Del Method 04/13/24 23:00 30 H 127/49 L 96 Room Air 04/13/24 22:53 87 143/93 H 04/13/24 22:00 77 21 130/75 99 Room Air 04/13/24 22:00 130/75 04/13/24 21:41 90 04/13/24 21:07 36.6 C 61 22 137/55 L 93 Room Air Supervising Physician Co-Signing Physician Notes Attending addendum: I have physically seen this patient, have supervised the medical residents activities, and agree with the H&P unless as otherwise noted. Assessment and Plan: Acute pyelonephritis- Follow urine culture sensitivity CT abdomen pelvis was negative, with no suggestion of stones Empiric ceftriaxone IV daily Status post 1 L normal saline bolus in ED Maintenance fluids NSS at 80 mL/h x 1 additional liter Short run of nonsustained V. tach Electrolytes acceptable Likely secondary to volume depletion Replace IV fluids as noted Given Lopressor 2.5 mg IV from the ED Acute kidney injury superimposed on CKD- Creatinine 1.41, with base 1.18 IV fluids as noted, and repeat laboratories in a.m. Hold losartan and Lasix for now Continue Cinacalcet Resident Activity Tracking Resident Involvement: Resident Care Provided Care Provided: Adult Hospital Medicine (4) Hypertension Hypertension type: essential hypertension Qualified Code(s): I10 - Essential (primary) hypertension
[2024-04-14] MEDS: SODIUM CHLORIDE 0.9% 500 ML IV ONE (00:29)
[2024-04-14] MEDS: cefTRIAXone SODIUM 2,000 MG/50 ML BAG IV STA (00:30)
[2024-04-14] MEDS ORDERED: POLYETHYLENE (MIRALAX) 17 GM PACK PO PRN (02:13)
[2024-04-14] MEDS ORDERED: ONDANSETRON INJ 2 MG/ML 2 ML VIAL IV PRN (02:13)
[2024-04-14] MEDS: SODIUM CHLORIDE 0.9% 1,000 ML IV SCH ×2 (03:40→17:49)
[2024-04-14] MEDS: LORazepam 0.5 MG TAB PO STA ×2 (05:16→21:23)
[2024-04-14 07:40] LABS: Basophils # (auto) 0.08 K/uL (0.00-0.20); Basophils % (auto) 0.7 %; Eosinophils # (auto) 0.04 K/uL (0.00-0.50); Eosinophils % (auto) 0.4 %; Hematocrit (blood only) 32.1 % (37.0-47.0); Hemoglobin 10.7 g/dl (12.0-16.0); Immature Granulocytes # (auto) 0.09 K/uL (0.01-0.20); Immature Granulocytes % (auto) 0.8 %; Lymphocytes # (auto) 1.22 K/uL (1.20-3.40); Lymphocytes % (auto) 10.8 %; Mean Corpuscular Hemoglobin 30.8 pg (25.0-34.0); Mean Corpuscular Hgb Conc 33.3 g/dL (32.0-36.0); Mean Corpuscular Volume 92.5 fL (80.0-100.0); Mean Platelet Volume 12.5 fL (9.4-12.4); Monocytes # (auto) 0.82 K/uL (0.11-0.59); Monocytes % (auto) 7.3 %; Neutrophils # (auto) 9.01 K/uL (1.40-6.50); Platelet Count 201 K/uL (130-400); RDW Coefficient of Variation 13.9 % (11.5-14.5); RDW Standard Deviation 46.9 fL (36.4-46.3); Red Blood Count 3.47 M/uL (4.20-5.40); White Blood Count 11.26 K/ul (4.8-10.8)
[2024-04-14 07:52] LABS: Albumin Globulin Ratio 1.1 (0.9-2); Albumin Level 3.5 gm/dl (3.4-5.0); BUN Creatinine Ratio 35.2 (10-20); Bilirubin,Total 0.7 mg/dl (0.2-1.0); Calcium 8.2 mg/dl (8.6-10.3); Creatinine Clr Calc Pharmacy 23.7 ml/min; Globulin 3.1 gm/dl (2.5-4.0); Potassium 4.3 mmol/L (3.5-5.1); Total Protein 6.6 gm/dl (6.0-8.3)
[2024-04-14] MEDS: ENOXAPARIN INJ 40 MG/0.4 ML SYR SQ SCH (08:49)
[2024-04-14] MEDS: CINACALCET HCL 30 MG TAB PO SCH (08:49)
--- NOTE | 2024-04-14 08:50 | Electrocardiogram Report ---
Test Reason : Blood Pressure : */* mmHG Vent. Rate : 91 BPM Atrial Rate : 91 BPM P-R Int : 168 ms QRS Dur : 108 ms QT Int : 408 ms P-R-T Axes : 86 10 121 degrees QTcB Int : 501 ms Sinus rhythm with frequent Premature ventricular complexes in a pattern of bigeminy Left ventricular hypertrophy with repolarization abnormality ( R in aVL , Juan Miguel product ) ST depression in Anterolateral leads Prolonged QT Abnormal ECG When compared with ECG of 27-Jan-2024 09:56, RI interval has decreased ST more depressed Anterolateral leads Premature ventricular complexes more frequent Confirmed by Krishan Joyner ([id number]) on 04/14/2024 8:49:48 AM Referred By: REFERRED SELF Confirmed By: Krishan Joyner
[2024-04-14] MEDS: DOCUSATE SODIUM/SENNA 50/8.6MG TAB PO SCH (14:02)
--- NOTE | 2024-04-14 18:13 | XRay Report ---
EXAM: Radiographs of the Chest 2 Views INDICATION: Shortness of breath. TECHNIQUE: Frontal and lateral views of the chest. COMPARISON: 11/27/2023 FINDINGS: Lungs and pleural spaces: Prominent, symmetrical pulmonary vascular and interstitial markings noted. No consolidation or pulmonary edema. Stable approximate 8 mm faint nodular opacity projecting partially over the right scapula. Heart: Stable cardiomegaly. Mediastinum: Normal contour. Bones/joints: No fracture, erosion or dislocation. IMPRESSION: Prominent interstitial pulmonary markings typical of vascular congestion and/or bronchitis. ACT 112: Negative or not required by law. Electronically signed by Zohra Teresa 04-14-2024 6:09 PM
[2024-04-14] MEDS: cefTRIAXone SODIUM 1,000 MG/50 ML BAG IV SCH (21:23)
--- NOTE | 2024-04-14 22:32 | Hospitalist Progress Note ---
Date of Service April 14, 2024 Assessment & Plan Admission and Anticipated Discharge Date Admission Date: April 14, 2024 Results & Data Results & Data Vital Signs (Past 12 Hours) Vital Signs Temp Pulse Pulse Resp BP Pulse Ox O2 Del Method 04/14/24 20:32 36.7 C 69 18 129/77 91 Room Air 04/14/24 15:56 78 04/14/24 15:51 36.5 C 77 18 130/55 L 92 Room Air 04/14/24 11:25 36.7 C 78 18 124/65 93 Room Air PG Care Time/CCT Total # of Minutes Spent Total Time Spent with Patient: Total time spent is greater than 50% in coordination of care (as documented) at patient's floor/unit and/or counseling patient: Coding
--- NOTE | 2024-04-15 06:08 | Billing Data ---
Date of Service April 15, 2024 Coding Level of Care Code 25504 INT INP/OBS CARE
[2024-04-15 07:21] LABS: Hematocrit (blood only) 32.6 % (37.0-47.0); Hemoglobin 10.6 g/dl (12.0-16.0); Mean Corpuscular Hemoglobin 30.5 pg (25.0-34.0); Mean Corpuscular Hgb Conc 32.5 g/dL (32.0-36.0); Mean Corpuscular Volume 93.9 fL (80.0-100.0); Mean Platelet Volume 12.4 fL (9.4-12.4); Platelet Count 216 K/uL (130-400); RDW Standard Deviation 47.5 fL (36.4-46.3); Red Blood Count 3.47 M/uL (4.20-5.40); White Blood Count 10.09 K/ul (4.8-10.8)
[2024-04-15 07:36] LABS: BUN Creatinine Ratio 33.1 (10-20); Potassium 4.3 mmol/L (3.5-5.1)
--- NOTE | 2024-04-15 07:57 | Hospitalist Progress Note ---
Date of Service April 15, 2024 Assessment & Plan (1) Acute pyelonephritis: Plan: -Patient with a leukocytosis of 13, creatinine of 1.41, lipase of 170, UA significant for UTI. -Troponin initially elevated at 72, 2-hour repeat of 70. Most likely demand ischemia. -Chest x-ray showed cardiomegaly otherwise unremarkable. -Abdomen/pelvis CT was negative. No ureteral stones. -Urine cultures pending. -Received ceftriaxone in the ED. Will continue with at this time. -will hold further fluids. Symptoms however are now pointing towards gastritis with epigastric pain when patient eats.. WIll continue antibiotics but ordered famotidine. WIll continue to monitor. (2) V-tach: Plan: -In the ED patient had frequent PVCs and a short run of V. tach. 2.5 mg of Lopressor was given. -Will continue monitoring on telemetry. -Due to having fatigue with metoprolol in the past we will hold off on restarting metoprolol. Has been off it for several weeks now. -Blood pressure and pulse improving with hydration at time of admission. -Did discuss with cardiology on 01/26 and discussion about calcium channel blockers was done at that time. Will hold off on starting anything at this time and treat underlying infection. (3) CKD (chronic kidney disease), stage III: Plan: -Creatinine of 1.41. Elevated BUN. -Continue to monitor with daily labs. (4) Hypertension: Plan: -On losartan and Lasix. -Will hold home medications due to hypotension secondary to pyelonephritis. (5) Hyperparathyroidism: Plan: -Status post parathyroid surgery in 2010 and 2022 which was unsuccessful. -Continue with Sensipar. Plan Fluids: NSS at 80 mL an hour. Nutrition: Heart healthy Code status: DNR/DNI DVT ppx: Lovenox Dispo: PCU/telemetry Admission and Anticipated Discharge Date Admission Date: April 14, 2024 Subjective 88 yo female reports having epigastric pain, especially when she eats. Patient denies melena, bloody stools. Patient denies any fever, chills. Review of Systems Review of Systems: All systems reviewed & are unremarkable except as noted in HPI & below Physical Exam Physical Exam: Constitutional: well-appearing, no acute distress HEENT: NCAT, no conjunctival injection CV: regular rhythm, no murmur appreciated, extremities well-perfused, no LE edema Resp: CTABL, no wheezes/rales/rhonchi appreciated, no increased work of breathing GI: soft, nondistended, nontender, BS normoactive, no suprapubic tenderness, MSK: Mild left flank pain, left-sided CVA tenderness Skin: warm, dry, no rash appreciated Neuro: alert, oriented, no focal neurologic deficit appreciated Results & Data Results & Data Vital Signs (Past 12 Hours) Vital Signs Temp Pulse Pulse Resp BP Pulse Ox O2 Del Method 04/15/24 07:40 36.4 C L 87 20 134/53 L 94 Room Air 04/15/24 03:48 36.8 C 60 18 138/78 96 Room Air 04/14/24 23:02 36.6 C 74 18 119/68 96 Room Air 04/14/24 21:44 76 04/14/24 20:32 36.7 C 69 18 129/77 91 Room Air PG Care Time/CCT Total # of Minutes Spent Total Time Spent with Patient: Total time spent is greater than 50% in coordination of care (as documented) at patient's floor/unit and/or counseling patient: Coding Level of Care Code 86753 SUB INP/OBS CARE 2/35MIN Diagnoses Acute pyelonephritis N10 V-tach I47.20 CKD (chronic kidney disease), stage III N18.30 Essential hypertension I10 Hypertension type: essential hypertension Hyperparathyroidism E21.3 (4) Hypertension Hypertension type: essential hypertension Qualified Code(s): I10 - Essential (primary) hypertension
[2024-04-15] MEDS: ENOXAPARIN INJ 30 MG/0.3 ML SYR SQ SCH (09:55)
[2024-04-15] MEDS: FUROSEMIDE INJ 20 MG/2 ML VIAL IV ONE (11:40)
[2024-04-15] MEDS: SUCRALFATE 1 GM/10 ML UDC PO SCH (11:40)
[2024-04-15] MEDS: FUROSEMIDE 40 MG/4 ML VIAL IV ONE (11:49)
[2024-04-15] MEDS: FAMOTIDINE 20MG IV PUSH 20 MG/5 ML SYR IV STA (14:07)
[2024-04-16] MEDS: ALBUT/IPRATROP 3MG/0.5MG NEB 3 ML VIAL NEB STA (04:02)
--- NOTE | 2024-04-16 05:17 | XRay Report ---
EXAM: XR chest 1V portable CLINICAL HISTORY: DYSPNEA JMF TECHNIQUE: An X-ray image of the chest is obtained in AP projection. COMPARISON: 04/14/2024. FINDINGS: Pulmonary Parenchyma: Prominent bronchovascular markings. New finding. Patchy opacity seen mainly in the lower zones, more prominent on the right side. New finding. Partial obliteration of the right costophrenic angle, likely due to mild pleural thickening or effusion. New finding. No left-sided pleural effusion or thickening. Heart and Mediastinum: Mild cardiomegaly. Unchanged. No mediastinal widening or masses. No hilar or mediastinal lymphadenopathy. Bony Thorax: Degenerative changes. Bony thorax appears intact without fractures or deformities. Soft Tissues: Soft tissues overlying the chest wall are unremarkable. IMPRESSION: 1. Patchy opacities seen in the lower zones, mainly on the right side. Could be due to inflammatory/infectious process. Need clinical correlation. New finding. 2. Pulmonary congestion, likely due to cardiac disease. New finding. 3. Minimal right-sided pleural effusion or thickening. New finding. 4. Otherwise, no significant interval change compared to previous study dated on 04/14/2024. 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 Electronically signed by Connor Metzger 04-16-2024 05:17 AM
[2024-04-16 06:42] LABS: Hematocrit (blood only) 33.2 % (37.0-47.0); Hemoglobin 10.8 g/dl (12.0-16.0); Mean Corpuscular Hemoglobin 30.3 pg (25.0-34.0); Mean Corpuscular Hgb Conc 32.5 g/dL (32.0-36.0); Mean Platelet Volume 12.2 fL (9.4-12.4); Platelet Count 236 K/uL (130-400); RDW Coefficient of Variation 13.8 % (11.5-14.5); RDW Standard Deviation 47.1 fL (36.4-46.3); Red Blood Count 3.57 M/uL (4.20-5.40); White Blood Count 11.35 K/ul (4.8-10.8)
[2024-04-16 07:10] LABS: BUN Creatinine Ratio 29.2 (10-20); C Reactive Protein 6.49 mg/dl (0-0.5); Calcium 8.1 mg/dl (8.6-10.3); Creatinine Clr Calc Pharmacy 21.9 ml/min; Magnesium 1.7 mg/dl (1.7-2.4); Phosphorus 3.9 mg/dl (2.5-4.9); Potassium 3.9 mmol/L (3.5-5.1)
[2024-04-16 10:37] LABS: Adenovirus PCR Not Detected (NotDetected); Bordetella parapertussis PCR Not Detected (NotDetected); Bordetella pertussis PCR Not Detected (NotDetected); Chlamydia pneumoniae PCR Not Detected (NotDetected); Coronavirus 229E PCR Not Detected (NotDetected); Coronavirus CoV-2 (COVID19)PCR Not Detected (NotDetected); Coronavirus HKU1 PCR Not Detected (NotDetected); Coronavirus NL63 PCR Not Detected (NotDetected); Coronavirus OC43PCR Not Detected (NotDetected); Human Metapneumovirus PCR Not Detected (NotDetected); Influenza A PCR Not Detected (NotDetected); Influenza B PCR Not Detected (NotDetected); Mycoplasma pneumoniae PCR Not Detected (NotDetected); Parainfluenza Virus 1 PCR Not Detected (NotDetected); Parainfluenza Virus 2 PCR Not Detected (NotDetected); Parainfluenza Virus 3 PCR Not Detected (NotDetected); Parainfluenza Virus 4 PCR Not Detected (NotDetected); Respiratory Syncytial VirusPCR Not Detected (NotDetected); Rhinovirus/Enterovirus PCR Not Detected (NotDetected)
[2024-04-16] MEDS: FAMOTIDINE 20MG IV PUSH 20 MG/5 ML SYR IV STA (13:49)
[2024-04-16 21:16] LABS: Adenovirus F 40/41 PCR Not Detected (NotDetected); Astrovirus PCR Not Detected (NotDetected); Campylobacter PCR Not Detected (NotDetected); Cryptosporidium PCR Not Detected (NotDetected); Cyclospora cayetanensis PCR Not Detected (NotDetected); Entamoeba histolytica PCR Not Detected (NotDetected); Enteroaggregative E.coli(EAEC) Not Detected (NotDetected); Enteropathogenic E.coli (EPEC) Not Detected (NotDetected); Enterotoxigenic E.coli (ETEC) Not Detected (NotDetected); Giardia lamblia PCR Not Detected (NotDetected); Norovirus GI/GII PCR Not Detected (NotDetected); Plesiomonas shigelloides PCR Not Detected (NotDetected); Rotavirus A PCR Not Detected (NotDetected); Salmonella PCR Not Detected (NotDetected); Sapovirus PCR Not Detected (NotDetected); Shiga-like Toxin E.coli (STEC) Not Detected (NotDetected); Shigella/Enteroinvasive E.coli Not Detected (NotDetected); Vibrio cholerae PCR Not Detected (NotDetected); Vibrio species PCR Not Detected (NotDetected); Yersinia enterocolitica PCR Not Detected (NotDetected)
[2024-04-16] MEDS: PANTOprazole 40 MG/10 ML SYR IV SCH (21:46)
--- NOTE | 2024-04-16 21:49 | Hospitalist Progress Note ---
Date of Service April 16, 2024 Assessment & Plan (1) Acute pyelonephritis: Plan: -Patient with a leukocytosis of 13, creatinine of 1.41, lipase of 170, UA significant for UTI. -Troponin initially elevated at 72, 2-hour repeat of 70. Most likely demand ischemia. -Chest x-ray showed cardiomegaly otherwise unremarkable. -Abdomen/pelvis CT was negative. No ureteral stones. -Urine cultures pending. -Received ceftriaxone in the ED. Will continue with at this time. -will hold further fluids. (2) Acute epigastric pain: Plan: Symptoms however are now pointing towards gastritis with epigastric pain when patient eats.. ordered famotidine and PPI Patient is refusing sucralfate. will consult GI. (3) V-tach: Plan: -In the ED patient had frequent PVCs and a short run of V. tach. 2.5 mg of Lopressor was given. -Will continue monitoring on telemetry. -Due to having fatigue with metoprolol in the past we will hold off on resta rting metoprolol. Has been off it for several weeks now. -Blood pressure and pulse improving with hydration at time of admission. -Did discuss with cardiology on 01/26 and discussion about calcium channel blockers was done at that time. Will hold off on starting anything at this time and treat underlying infection. (4) CKD (chronic kidney disease), stage III: Plan: -Creatinine of 1.41. Elevated BUN. -Continue to monitor with daily labs. (5) Hypertension: Plan: -On losartan and Lasix. -Will hold home medications due to hypotension secondary to pyelonephritis. (6) Hyperparathyroidism: Plan: -Status post parathyroid surgery in 2010 and 2022 which was unsuccessful. -Continue with Sensipar. Plan Fluids: NSS at 80 mL an hour. Nutrition: Heart healthy Code status: DNR/DNI DVT ppx: Lovenox Dispo: PCU/telemetry Admission and Anticipated Discharge Date Admission Date: April 15, 2024 Subjective Patient reports she continues to have epigastric pain. Review of Systems Review of Systems: All systems reviewed & are unremarkable except as noted in HPI & below Physical Exam Physical Exam: Constitutional: well-appearing, no acute distress HEENT: NCAT, no conjunctival injection CV: regular rhythm, no murmur appreciated, extremities well-perfused, no LE edema Resp: CTABL, no wheezes/rales/rhonchi appreciated, no increased work of breathing GI: soft, nondistended, nontender, BS normoactive, no suprapubic tenderness, MSK: Mild left flank pain, left-sided CVA tenderness Skin: warm, dry, no rash appreciated Neuro: alert, oriented, no focal neurologic deficit appreciated Results & Data Results & Data Vital Signs (Past 12 Hours) Vital Signs Temp Pulse Pulse Resp BP Pulse Ox O2 Del Method 04/16/24 19:40 36.6 C 95 H 18 151/80 H 95 Room Air 04/16/24 15:42 36.6 C 77 16 137/85 98 Room Air 04/16/24 14:07 80 04/16/24 11:00 36.4 C L 82 18 150/70 H 97 Room Air PG Care Time/CCT Total # of Minutes Spent Total Time Spent with Patient: Total time spent is greater than 50% in coordination of care (as documented) at patient's floor/unit and/or counseling patient: Coding Level of Care Code 13631 SUB INP/OBS CARE 2/35MIN Diagnoses Acute pyelonephritis N10 Acute epigastric pain R10.13 V-tach I47.20 CKD (chronic kidney disease), stage III N18.30 Essential hypertension I10 Hypertension type: essential hypertension Hyperparathyroidism E21.3 (5) Hypertension Hypertension type: essential hypertension Qualified Code(s): I10 - Essential (primary) hypertension
[2024-04-17 06:40] LABS: Hemoglobin 11.1 g/dl (12.0-16.0); Mean Corpuscular Hemoglobin 30.7 pg (25.0-34.0); Mean Corpuscular Hgb Conc 32.6 g/dL (32.0-36.0); Mean Corpuscular Volume 93.9 fL (80.0-100.0); Platelet Count 227 K/uL (130-400); RDW Coefficient of Variation 13.9 % (11.5-14.5); RDW Standard Deviation 47.1 fL (36.4-46.3); Red Blood Count 3.62 M/uL (4.20-5.40); White Blood Count 10.82 K/ul (4.8-10.8)
[2024-04-17 06:48] LABS: BUN Creatinine Ratio 27.6 (10-20); Calcium 8.5 mg/dl (8.6-10.3); Creatinine Clr Calc Pharmacy 24.5 ml/min; Potassium 3.7 mmol/L (3.5-5.1)
[2024-04-17 08:20] LABS: C Reactive Protein 5.68 mg/dl (0-0.5)
[2024-04-17] MEDS: FUROSEMIDE INJ 20 MG/2 ML VIAL IV ONE (08:25)
[2024-04-17 11:47] VITALS: RESP 18
--- NOTE | 2024-04-17 12:38 | Gastrointestinal Consultation ---
Date of Consultation April 17, 2024 Assessment & Plan (1) Dyspepsia: Seems to have resolved now, could be from Cinacalcet or underlying sepsis from Pyelonephritis. Please treat with PO Pantoprazole BID for 2 months. If symptoms recurs in the future then will arrange OP EGD. Recall if needed. History of Present Illness Reason for Consultation: Abdominal pain Attending Physician: Julio Flowers History of Present Illness 88 years old female patient admitted with acute pyelonephritis, GI consulted for postprandial epigastric pain, patient reports she never had GI symptoms till a week ago when she developed left flank pain and felt some dyspepsia, took Maalox with some relief but flank pain persisted, after admission and treatment she said she is feeling better now and back to her baseline, she thinks her dyspepsia resolved after stopping Cinacalcet. Tolerating diet now. Allergies Allergy/AdvReac Type Severity Reaction Status Date / Time adhesive tape Allergy redness Verified 02/04/24 09:31 acetaminophen AdvReac Unknown CHEMICAL Verified 02/04/24 09:31 HEPATITIS capsaicin AdvReac Unknown "VOLTAREN" Verified 02/04/24 09:31 CHEMICAL HEPATITIS diclofenac AdvReac Unknown "VOLTAREN" Verified 02/04/24 09:31 CHEMICAL HEPATITIS Diclopak AdvReac Unknown "VOLATEN" Verified 06/08/09 03:30 CHEMICAL HEPATITIS Home Medications Medication Instructions Recorded Confirmed Type Lactobacillus acidophilus 10 mg PO QAM 11/15/18 04/14/24 History (Acidophilus capsule) losartan 25 mg tablet 25 mg PO QAM #90 tabs 12/09/23 04/14/24 Rx cinacalcet 30 mg tablet 30 mg PO DAILY 90 days #90 tabs 02/04/24 04/14/24 Rx furosemide 20 mg tablet 20 mg PO QAM 04/14/24 04/14/24 History multivitamin 1 tab PO QAM 04/14/24 04/14/24 History omega 9-ybd-rys-fish oil 1,200 mg 1 cap PO QAM 04/14/24 04/14/24 History (144 mg-216 mg) capsule (Fish Oil) Patient History Medical History Allergic rhinitis with postnasal drip Ex-smoker Early satiety Hiatal hernia Cyst, ovarian Renal angiomyolipoma Paroxysmal SVT (supraventricular tachycardia) follows with Dr. Allred Surgical History H/O ovarian cystectomy H/O dilation and curettage H/O colonoscopy History of lumbar laminectomy S/P tonsillectomy S/P total parathyroidectomy History of cataract surgery H/O breast biopsy mult - benign History of appendectomy Family History Mother Muscle pain Hypertension Father Myocardial infarction Renal failure Hypertension Sister Glaucoma Hyperparathyroidism Denies family history of Ovarian cancer Prostate cancer Diabetes Depression Breast cancer Colorectal cancer Stroke Social History Smoking Status: Never smoker Tobacco Type: Cigarettes Age Started Using Tobacco: 19; Age Quit Using Tobacco: 31; packs per day: 1; Cigarettes Per Day: 10; Second Hand Exposure: No; Do You Dip or Chew Tobacco: No; Hx Alcohol Use: No Hx Substance Use: No Preferred Language: Frisian Communication Ability: Effective Visual Impairment: Limited Hearing Ability: Use of Hearing Aid Public Relations Specialist Required: No Beliefs That Will Affect Care: None marital status: / Current Living Situation: Alone current occupational status: retired Other Information That Helps Us Care for You: No Feels Safe at Home: Yes Safety Concerns: Feels Safe At This Time Childhood Exposure to Second-Hand Smoke: No Diet: regular caffeine: No Dental Care, Regularly: Yes Physical Activity Frequency: Daily Physical Activity Frequency Comment: walking daily Seatbelt Use: always Sunscreen Use: No Assistive Devices: Cane and Hearing Aid - Bilateral Review of Systems Review of Systems: All systems reviewed & are unremarkable except as noted in HPI & below Physical Exam Constitutional: comfortable; no acute distress Respiratory: normal respiratory effort, lungs clear to auscultation Cardiovascular: RRR, no murmur, no edema Gastrointestinal (Abdomen): normal bowel sounds, soft, nontender, no hepatosplenomegaly Results & Data Vital Signs (Past 12 Hours) Vital Signs Temp Pulse Pulse Resp BP Pulse Ox O2 Del Method 04/17/24 11:47 36.3 C L 74 18 136/79 98 Room Air 04/17/24 08:00 78 04/17/24 08:00 Nasal Cannula 04/17/24 07:35 36.2 C L 76 16 149/74 H 98 Nasal Cannula 04/17/24 03:28 36.7 C 76 18 115/60 94 Room Air O2 Flow Rate 04/17/24 11:47 04/17/24 08:00 04/17/24 08:00 2 04/17/24 07:35 2 04/17/24 03:28 Laboratory Results Laboratory Results - last 24 hr 04/16/24 04/17/24 04/17/24 Unknown 06:01 06:05 WBC 10.82 H RBC 3.62 L Hgb 11.1 L Hct 34.0 L MCV 93.9 MCH 30.7 MCHC 32.6 RDW Std Deviation 47.1 H RDW Coeff of [place] 13.9 Plt Count 227 MPV 12.0 Sodium 138 Potassium 3.7 Chloride 106 Carbon Dioxide 22 Anion Gap 10 BUN 34 H Creatinine 1.23 H Est Cr Clr Drug Dosing 24.5 eGFR 42.27 BUN/Creatinine Ratio 27.6 H Glucose 140 H Calcium 8.5 L C-Reactive Protein 5.68 H B-Natriuretic Peptide 1769 H Stl C. cayetanensis PCR Not Detected Stool Rotavirus A PCR Not Detected Stl Adenov F 40/41 PCR Not Detected Stool Astrovirus (PCR) Not Detected Stool Campylobacter PCR Not Detected Stool Cryptosporidium PCR Not Detected Stl E.coli Shiga Tox PCR Not Detected Stl Enterotoxigenic E PCR Not Detected Stool EPEC (PCR) Not Detected Stool EAEC (PCR) Not Detected Stl E. histolytica PCR Not Detected Stool Giardia Lamblia PCR Not Detected Stool H. pylori Ag Pending Stool Salmonella PCR Not Detected Stool Sapovirus (PCR) Not Detected Stl P. shigelloides PCR Not Detected Stl Shigella/EIEC PCR Not Detected St Y.enterocolitica PCR Not Detected Stool Vibrio (PCR) Not Detected Stl Vibrio cholerae PCR Not Detected Stl Norovirus GI/GII PCR Not Detected Diagnostic Findings CT scan unremarkable.
[2024-04-17] MEDS: LORazepam 0.5 MG TAB PO STA (15:20)
--- NOTE | 2024-04-17 21:44 | Hospitalist Progress Note ---
Date of Service April 17, 2024 Assessment & Plan (1) Acute pyelonephritis: Plan: -Patient with a leukocytosis of 13, creatinine of 1.41, lipase of 170, UA significant for UTI. -Troponin initially elevated at 72, 2-hour repeat of 70. Most likely demand ischemia. -Chest x-ray showed cardiomegaly otherwise unremarkable. -Abdomen/pelvis CT was negative. No ureteral stones. -Urine cultures contaminated. -Received ceftriaxone in the ED. Will continue with at this time. (2) Acute epigastric pain: Plan: Symptoms however are now pointing towards gastritis with epigastric pain when patient eats.. ordered famotidine and PPI Patient is refusing sucralfate. will consult GI. continue abobve treatment, no iscope at this time. (3) V-tach: Plan: -In the ED patient had frequent PVCs and a short run of V. tach. 2.5 mg of Lopressor was given. -Will continue monitoring on telemetry. -Due to having fatigue with metoprolol in the past we will hold off on restarting metoprolol. Has been off it for several weeks now. -Blood pressure and pulse improving with hydration at time of admission. -Did discuss with cardiology on 01/26 and discussion about calcium channel blockers was done at that time. Will hold off on starting anything at this time and treat underlying infection. Unsure as to cause of dyspnea on exertion: physical exam does not appear to be CHF. will consider resuming home dose of lasix of 20 mg daily if renal function is stable. (4) CKD (chronic kidney disease), stage III: Plan: -Creatinine of 1.41. Elevated BUN. -Continue to monitor with daily labs. (5) Hypertension: Plan: -On losartan and Lasix. -Will hold home medications due to hypotension secondary to pyelonephritis. (6) Hyperparathyroidism: Plan: -Status post parathyroid surgery in 2010 and 2022 which was unsuccessful. -Continue with Sensipar. Plan Fluids: NSS at 80 mL an hour. Nutrition: Heart healthy Code status: DNR/DNI DVT ppx: Lovenox Dispo: PCU/telemetry Admission and Anticipated Discharge Date Admission Date: April 15, 2024 Subjective Patient complaining of left thoracolumbar pain. She reports it as pressure. Patient also reports epigastric pain when she eats but pain has improved. Physical Exam Physical Exam: Constitutional: well-appearing, no acute distress HEENT: NCAT, no conjunctival injection CV: regular rhythm, no murmur appreciated, extremities well-perfused, no LE edema Resp: CTABL, no wheezes/rales/rhonchi appreciated, no increased work of breathing GI: soft, nondistended, nontender, BS normoactive, no suprapubic tenderness, MSK: Mild left flank pain, left-sided CVA tenderness Skin: warm, dry, no rash appreciated Neuro: alert, oriented, no focal neurologic deficit appreciated Results & Data Results & Data Vital Signs (Past 12 Hours) Vital Signs Temp Pulse Resp BP Pulse Ox O2 Del Method 04/17/24 19:33 36.4 C L 92 H 18 138/79 97 Room Air 04/17/24 16:22 36.5 C 83 18 155/76 H 96 Room Air 04/17/24 11:47 36.3 C L 74 18 136/79 98 Room Air PG Care Time/CCT Total # of Minutes Spent Total Time Spent with Patient: Total time spent is greater than 50% in coordination of care (as documented) at patient's floor/unit and/or counseling patient: Coding Level of Care Code 00456 SUB INP/OBS CARE 3/50MIN Diagnoses Acute pyelonephritis N10 Acute epigastric pain R10.13 V-tach I47.20 CKD (chronic kidney disease), stage III N18.30 Essential hypertension I10 Hypertension type: essential hypertension Hyperparathyroidism E21.3 (5) Hypertension Hypertension type: essential hypertension Qualified Code(s): I10 - Essential (primary) hypertension
[2024-04-18 03:42] VITALS: TEMP 98.2
[2024-04-18 07:13] VITALS: BP 129/83; O2SAT 93
[2024-04-18 07:29] LABS: Hematocrit (blood only) 35.2 % (37.0-47.0); Hemoglobin 11.3 g/dl (12.0-16.0); Mean Corpuscular Hemoglobin 30.5 pg (25.0-34.0); Mean Corpuscular Hgb Conc 32.1 g/dL (32.0-36.0); Mean Corpuscular Volume 95.1 fL (80.0-100.0); Mean Platelet Volume 11.9 fL (9.4-12.4); Platelet Count 240 K/uL (130-400); RDW Coefficient of Variation 14.2 % (11.5-14.5); RDW Standard Deviation 47.1 fL (36.4-46.3); White Blood Count 9.91 K/ul (4.8-10.8)
[2024-04-18 07:47] LABS: BUN Creatinine Ratio 25.6 (10-20); C Reactive Protein 4.26 mg/dl (0-0.5); Calcium 8.6 mg/dl (8.6-10.3); Creatinine Clr Calc Pharmacy 24.6 ml/min; Potassium 3.7 mmol/L (3.5-5.1)
[2024-04-18] MEDS: FUROSEMIDE 20 MG TAB PO SCH (10:54)
[2024-04-18] MEDS: POTASSIUM CHLORIDE CRTAB 20 MEQ TABCR PO STA (15:02)
[2024-04-18 15:18] VITALS: PULSE 68
--- NOTE | 2024-04-18 15:19 | Discharge Summary ---
Discharge Summary Date of Service April 18, 2024 Principal Dx & Hospital Course #1 = Principal Diagnosis (1) Acute pyelonephritis: Patient presented with left flank pain and abnormal urinalysis with a leukocytosis of 13, creatinine of 1.41, lipase of 170 Abdomen/pelvis CT was negative. No ureteral stones. Unfortunately, urine culture growing mixed organisms but patient clinically improved on ceftriaxone Finish out 7-day course of antibiotics with 3 more days of p.o. cefdinir (2) Acute epigastric pain: Did have mildly elevated lipase on admission at 170 but no acute pancreatitis seen on CT abdomen/pelvis Most likely dyspepsia due to gastritis-could be from Sensipar versus pyelonephritis as per GI consultation Improved with Protonix-continue on Protonix 40 Mg p.o. twice daily x 2-month course as per GI Outpatient EGD if symptoms persist is recommended Patient wishes to hold off on further Sensipar at this time and have her calcium levels monitored closely as an outpatient H. pylori stool PCR pending at the time of discharge. Stool PCR was negative (3) V-tach: In the ED patient had frequent PVCs, bigeminy, and a short run of V. tach. 2.5 mg of Lopressor was given. She had frequent PVCs throughout her stay. Recent echocardiogram in 01/2024 shows a preserved EF and moderate to severe MR Keep electrolytes replete Due to having fatigue with metoprolol in the past we will hold off on restarting metoprolol. Has been off it for several weeks now. (4) CKD (chronic kidney disease), stage III: Creatinine of 1.41. Elevated BUN on admission-losartan and Lasix held Okay to resume Lasix on discharge but will continue to hold losartan as blood pressures have been normal Follow-up with PCP and resume losartan in the future if blood pressures become more elevated (5) Hypertension: On losartan and Lasix at home-holding losartan as above but can resume Lasix With demand myocardial ischemia on admission with troponin 72 and then down to 70 on repeat, no changes on ECG or chest pain (6) Hyperparathyroidism: Status post parathyroid surgery in 2010 and 2022 which was unsuccessful. Patient feels that Sensipar caused her dyspepsia/gastritis-holding Sensipar for now Calcium levels here are normal Follow-up with PCP for routine calcium level checks in the future Plan Code status: DNR/DNI DVT ppx: Lovenox Dispo: Stable for discharge to home Notes For Next Care Provider Needs close follow-up of BMP and calcium levels May need to resume losartan at follow-up visit May need EGD as an outpatient if epigastric pain returns or persist despite Protonix use Medication Changes From Visit Hold Sensipar Hold losartan Started cefdinir 300 Mg p.o. twice daily x 3 more days Started Protonix 40 mg p.o. twice daily Admission HPI Per Admitting Provider Patient is a 88-year-old female who presents to the hospital with left-sided flank pain. Patient states that since Thursday she has been feeling off. She has been drinking less fluids and food. States that today she started to have sharp pain in her left flank and left. She also had some bloating as well as some sh ortness of breath. States that the pain feels like pressure. She denies any fevers or chills. No significant abdominal pain but does state she has the bloating. Denies any urinary symptoms. Has not had a bowel movement since Thursday. Of note patient has had episodes of PVCs in the past and was on metoprolol but was taken off of that due to side effects such as lightheadedness with this medication. Discharge Exam Constitutional WD/WN, vitals as above Respiratory normal respiratory effort, lungs clear to auscultation Cardiovascular RRR, no murmur, no edema Gastrointestinal (Abdomen) normal bowel sounds, soft, nontender, no hepatosplenomegaly Psychiatric A+Ox3, euthymic affect Discharge Plan Discharge Items Patient Disposition: Home - Home Health Services Reason For Visit: PYELONEPHRITIS, SHORT RUN [facility] Discharge Diagnosis: Acute pyelonephritis, UTI Nonsustained ventricular tachycardia Epigastric pain-suspected gastritis Condition on Discharge: Fair Activity: Resume your previous activity Non-emergency contact: Primary Care Provider Call non-emergency contact if: you have any medication questions and your symptoms worsen Follow-up/Referrals: Rob Pendleton DO [Primary Care Provider] - (Follow-up within 1 to 2 weeks) Diet: Regular Addtl Attending Provider Instructions: You were admitted for a urinary tract infection which was causing pain into your left kidney. You also had an upset stomach with possible gastritis that was relieved with an antacid called Protonix. Please finish out the course of oral antibiotics for your urine infection. Please remain on the Protonix twice a day for 2 months. As we discussed, you can hold off on taking your Sensipar and have your PCP follow your calcium levels closely. Pending Studies at Discharge: Yes (Helicobacter pylori stool PCR) Stand-Alone Forms: [facility], Smoking Cessation Medications and DC Order Prescriptions: New pantoprazole 40 mg Tablet,Delayed Release (Dr/Ec) 40 mg PO BID Qty: 60 0RF cefdinir 300 mg capsule 300 mg PO BID Qty: 6 0RF Continued Lactobacillus acidophilus [Acidophilus] capsule 10 mg PO QAM furosemide 20 mg tablet 20 mg PO QAM multivitamin Tablet 1 tab PO QAM omega 7-rte-kao-fish oil [Fish Oil] 1,200 (144-216) mg Capsule 1 cap PO QAM Held losartan 25 mg tablet 25 mg PO QAM Qty: 90 3RF Hold Instructions: Resume on 04/25/24. Hold until told to restart by your PCP cinacalcet 30 mg tablet 30 mg PO DAILY 90 Days Qty: 90 3RF Hold Instructions: Resume on 05/02/24. Hold until told to resume by your PCP Discharge Orders: Discharge Order (Routine); Ordered 04/18/24 Ordered By: Purnima Dumont Admission Data Admit Date/Time: 04/15/24 22:13 Attending Provider: Purnima Dumont Admit Provider: Julio Flowers Primary Care Provider: Rob Pendleton Other Providers: Robe Bernardo; Arlene Rivas; Anselmo Heath; Rosanne Fagan; Lauren Borrero; Agatha Aguilar; Gretel Lugo; Marcie Fernandes; Devyn Bee; Rodney Escamilla; Enoch Baires; Joyce Sandoval; Bell Ortez; Celi Ng; Ida Randall; Carrie Johnson; Azam Lang; Sebastian Ochoa; Yessy Mcfadden; Sabina Donahue Jr; Rodriguez Ramachandran; Jamie Arita; Darren Mckeon; Sal Watts; Remedios Morelos.; Triston Healy I; Ludy Villarreal; Gustavo Viramontes Hospital Stay Data Consultations 04/13/24 23:59 ED Decision to Admit Stat 04/16/24 13:53 Consult Gastroenterology Routine Diagnostic Imagining Performed 04/13/24 21:36 CT abd pelvis wo con Stat Pending Results Patient Have Any Pending Studies at Discharge: Yes (Helicobacter pylori stool PCR) Discharge Instructions Given to Patient (Per Discharging Provider) You were admitted for a urinary tract infection which was causing pain into your left kidney. You also had an upset stomach with possible gastritis that was relieved with an antacid called Protonix. Please finish out the course of oral antibiotics for your urine infection. Please remain on the Protonix twice a day for 2 months. As we discussed, you can hold off on taking your Sensipar and have your PCP follow your calcium levels closely. Total Time Total Time Spent Total Time Spent (In Minutes): 35 minutes Total Time Includes: Examination of the Patient, Discharge Planning and Medication Reconciliation Coding Level of Care Code 86907 INP/OBS DISCH >30 MIN Diagnoses Acute pyelonephritis N10 Acute epigastric pain R10.13 V-tach I47.20 CKD (chronic kidney disease), stage III N18.30 Essential hypertension I10 Hypertension type: essential hypertension Hyperparathyroidism E21.3
[2024-04-18] MEDS ORDERED: PANTOprazole 40 MG TAB PO SCH (21:00)
== END 2024-04-18 17:34 | disposition home health service (06) | DRG 690 ==
LOC: 2S 21:05 → ED 21:05 → SUATTDRO 04-14 00:43 → 2S 04-14 02:11 → SUATTDRO 04-15 22:13

== ENCOUNTER 2025-04-20 09:02 | Inpatient (IN) ==
--- NOTE | 2025-04-20 09:26 | Emergency Department Note ---
Impression & Plan Acute dyspnea, New onset a-fib, Acute exacerbation of CHF (congestive heart failure) ED Provider Note HISTORY OF PRESENT ILLNESS: Patient is an 89-year-old female presenting with shortness of breath and irregular heartbeat. Patient reports that she started having difficulty breathing 4 days ago. She states that she is short of breath both at rest and with exertion, but shortness of breath is worse with exertion. She states that she gets very short of breath when bending over to try to tie her shoes or pick something up. States that she is only able to take a few steps at a time before she has to stop to catch her breath. She reports this is significantly abnormal for her. She is not on any anticoagulation or antiplatelet therapies. Denies any history of cardiac stents. She does have a history of ventricular tachycardia. Denies any DVT or PE history. She denies any recent fevers or cough or sick contact exposures. She states that in the last 2 to 3 days she has gained 3 to 4 pounds, which is abnormal for her. She has been taking her furosemide 20 mg as prescribed. ROS: as above PHYSICAL EXAM: Constitutional: Patient appears in no acute distress. HENT: Head: Normocephalic and atraumatic. Eyes: EOMI, PERRL Mouth/Throat: Mucous membranes moist. Neck: Trachea midline. Neck supple. Cardiovascular: Irregularly irregular rhythm. No murmurs, rubs or gallops. Intact distal pulses. Pulmonary/Chest: No respiratory distress. Breath sounds clear and equal bilaterally. Tachypneic Abdominal: Abdomen soft, no tenderness, rebound or guarding. Musculoskeletal: No edema, tenderness or deformity noted. Skin: Warm and dry. No rash, erythema, pallor or cyanosis Psychiatric: Appropriate mood and affect for situation. Neurological: Alert and keenly responsive. CN II-XII grossly intact, moving all extremities equally and fully. MDM: - Vitals signs stable - History obtained via patient. History as above. - Chronic conditions affecting care: hyperparathyroidism; HTN; CKD; Vtach; CHF - Differential diagnoses include, but are not limited to: Congestive heart failure; acute coronary syndrome; COPD/asthma exacerbation; pulmonary edema; pulmonary embolism; pneumonia; pneumothorax; viral syndrome - Order placed for continuous cardiac monitoring. At this time, monitor showed rate of 96 bpm with irregular rhythm, per my interpretation. - External medical records reviewed. Primary care visit note dated 02/22/2025 was reviewed. Patient was seen for 6-month follow-up. - EKG image interpreted by myself showed atrial fibrillation. Rate 98 bpm. QT 380. No acute ischemic changes. Patient does have some ST depressions in leads I, II and aVL, but these have been noted on previous EKGs most recently on an EKG from 01/13/2025. Atrial fibrillation does appear to be a new rhythm. - Laboratory workup interpreted by myself showed normal WBC; normal PT/INR; stable electrolytes; slight ELLIOT on CKD (Cr 1.43); normal magnesium; elevated AST (48); elevated troponin (50.4 - chronically elevated); elevated BNP (1274); normal lipase - CXR image reviewed interpreted by myself was negative for pulmonary edema, per my interpretation. Radiology notes a suspected increased size in the right upper lobe pulmonary nodule. - COVID/flu/RSV negative - Patient appears to be in a new onset A-fib. CHADS-VASc score of 5 (+2 age; +1 sex +1 CHF hx; +1 HTN hx) suggesting patient would benefit from anticoagulation use. - Given her new onset A-fib, I do think it may be triggering a CHF exacerbation and causing the patient to be so symptomatic. She has had a significant weight gain in the last few days as compared to normal and she is very tachypneic and short of breath as her presenting symptom to the ER. - Patient given 20 mg IV lasix - Discussion was had with rn case management about patient's case and need for admission - Hospitalist consulted for admission - [facility] 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 Allred Surgical History H/O ovarian cystectomy H/O dilation and curettage H/O colonoscopy History of lumbar laminectomy S/P tonsillectomy S/P total parathyroidectomy History of cataract surgery H/O breast biopsy History of appendectomy Family History Mother Muscle pain Hypertension Father Myocardial infarction Renal failure Hypertension Sister Glaucoma Hyperparathyroidism Denies family history of Ovarian cancer Prostate cancer Diabetes Depression Breast cancer Colorectal cancer Stroke Social History Smoking Status: Never smoker Tobacco Type: Cigarettes Age Started Using Tobacco: 19; Age Quit Using Tobacco: 31; packs per day: 1; Cigarettes Per Day: 10; Second Hand Exposure: No; Do You Dip or Chew Tobacco: No; Hx Alcohol Use: No Hx Substance Use: No Preferred Language: [place] Islander Communication Ability: Effective Visual Impairment: Limited Hearing Ability: Use of Hearing Aid Medical Clerk Required: No Beliefs That Will Affect Care: None marital status: / Current Living Situation: Alone current occupational status: retired Feels Safe at Home: Yes Childhood Exposure to Second-Hand Smoke: No Diet: regular caffeine: No during the past year weight has: other Dental Care, Regularly: Yes Physical Activity Frequency: Daily Physical Activity Frequency Comment: walking daily Seatbelt Use: always Sunscreen Use: No Assistive Devices: Cane, Glasses and Hearing Aid - Bilateral Allergies Allergies Allergy/AdvReac Type Severity Reaction Status Date / Time adhesive tape Allergy redness Verified 04/20/25 11:07 acetaminophen AdvReac Unknown CHEMICAL Verified 04/20/25 11:07 HEPATITIS capsaicin AdvReac Unknown "VOLTAREN" Verified 04/20/25 11:07 CHEMICAL HEPATITIS diclofenac AdvReac Unknown "VOLTAREN" Verified 04/20/25 11:07 CHEMICAL HEPATITIS Diclopak AdvReac Unknown "VOLATEN" Verified 06/08/09 03:30 CHEMICAL HEPATITIS Home Meds Home Medications Medication Instructions Recorded Confirmed Lactobacillus acidophilus 10 mg PO QAM 11/15/18 04/20/25 (Acidophilus capsule) multivitamin 1 tab PO QAM 04/14/24 04/20/25 cholecalciferol (vitamin D3) 25 25 mcg PO DAILY 05/31/24 04/20/25 mcg (1,000 unit) capsule omega 3-aqw-aas-fish oil 1,200 mg 1 cap PO PM 02/22/25 04/20/25 (144 mg-216 mg) capsule (Fish Oil) furosemide 20 mg tablet 20 mg PO DAILY 04/20/25 04/20/25 Previous Rx's Medication Instructions Recorded cinacalcet 30 mg tablet 30 mg PO 2XWK 90 days #90 tabs 02/22/25 losartan 25 mg tablet 25 mg PO QAM #90 tabs 02/22/25 Results & Data (ED) Vital Signs Vital Signs - 24 hr 04/20/25 09:02 04/20/25 09:02 04/20/25 09:08 Temperature 36.6 C Temperature Source Temporal Artery Scan Pulse Rate 74 Pulse Rate [Apical] 72 Pulse Rhythm Pulse Rhythm [Apical] Regular Pulse Strength [Apical] Normal Respiratory Rate 18 20 Respiratory Effort / Characteristics Short of Breath Non-Labored Respiratory Depth Normal Normal Respiratory Pattern Regular Blood Pressure 130/78 Blood Pressure [Right Arm] Blood Pressure Mean 95 Blood Pressure Mean [Right Arm] Pulse Oximetry 99 99 Oxygen Delivery Method Room Air Room Air Room Air Sepsis Recent Fever Within 48 Hours No Sepsis New/Unexplained Change in Mental Status Yes Sepsis Action Taken by Nursing No Action Required 04/20/25 09:15 04/20/25 09:16 04/20/25 09:51 Temperature Temperature Source Pulse Rate 78 79 Pulse Rate [Apical] 84 Pulse Rhythm Irregular Pulse Rhythm [Apical] Irregular Pulse Strength [Apical] Respiratory Rate 22 18 Respiratory Effort / Characteristics Short of Breath Respiratory Depth Normal Respiratory Pattern Regular Blood Pressure Blood Pressure [Right Arm] 141/66 H Blood Pressure Mean Blood Pressure Mean [Right Arm] 91 Pulse Oximetry 99 99 Oxygen Delivery Method Room Air Room Air Sepsis Recent Fever Within 48 Hours Sepsis New/Unexplained Change in Mental Status Sepsis Action Taken by Nursing 04/20/25 10:47 Temperature Temperature Source Pulse Rate Pulse Rate [Apical] 84 Pulse Rhythm Pulse Rhythm [Apical] Irregular Pulse Strength [Apical] Respiratory Rate 16 Respiratory Effort / Characteristics Non-Labored Spontaneous Respiratory Depth Normal Respiratory Pattern Blood Pressure Blood Pressure [Right Arm] 141/66 H Blood Pressure Mean Blood Pressure Mean [Right Arm] 91 Pulse Oximetry 99 Oxygen Delivery Method Room Air Sepsis Recent Fever Within 48 Hours Sepsis New/Unexplained Change in Mental Status Sepsis Action Taken by Nursing Laboratory Data 04/20/25 09:20 04/20/25 09:20 Lab Results 04/20/25 04/20/25 Range/Units 09:20 09:26 WBC 10.61 (4.8-10.8) K/ul RBC 4.26 (4.20-5.40) M/uL Hgb 13.2 (12.0-16.0) g/dL Hct 40.3 (37.0-47.0) % MCV 94.6 (80.0-100.0) fL MCH 31.0 (25.0-34.0) pg MCHC 32.8 (32.0-36.0) g/dL RDW Std Deviation 49.4 H (36.4-46.3) fL RDW Coeff of [place] 14.4 (11.5-14.5) % Plt Count 228 (130-400) K/uL MPV 11.2 (9.4-12.4) fL Immature Gran % (Auto) 0.8 % Neut % (Auto) 76.4 % Lymph % (Auto) 15.0 % [place] % (Auto) 5.4 % Eos % (Auto) 1.3 % Baso % (Auto) 1.1 % Neut # (Auto) 8.10 H (1.40-6.50) K/uL Lymph # (Auto) 1.59 (1.20-3.40) K/uL [place] # (Auto) 0.57 (0.11-0.59) K/uL Eos # (Auto) 0.14 (0.00-0.50) K/uL Baso # (Auto) 0.12 (0.00-0.20) K/uL Immature Gran # (Auto) 0.09 (0.01-0.20) K/uL PT 11.2 (9.0-12.0) Seconds INR 1.1 (0.9-1.1) Sodium 139 (136-145) mmol/L Potassium 4.2 (3.5-5.1) mmol/L Chloride 105 (98-107) mmol/L Carbon Dioxide 23 (21-32) mmol/L Anion Gap 11 (3-11) BUN 54 H (6-23) mg/dl Creatinine 1.43 H (0.6-1.2) mg/dl Est Cr Clr Drug Dosing 31.4 ml/min eGFR 35.06 BUN/Creatinine Ratio 37.8 H (10-20) Glucose 159 H (70-99(Fasting)) mg/dl Calcium 10.3 (8.6-10.3) mg/dl Magnesium 2.1 (1.7-2.4) mg/dl Total Bilirubin 0.5 (0.2-1.0) mg/dl AST 48 H (13-39) U/L ALT 40 (7-52) U/L Alkaline Phosphatase 58 (34-104) U/L Troponin I High Sens 50.4 H* (0-14) pg/ml B-Natriuretic Peptide 1274 H (0-100) pg/ml Total Protein 8.2 (6.0-8.3) gm/dl Albumin 4.5 (3.4-5.0) gm/dl Globulin 3.7 (2.5-4.0) gm/dl Albumin/Globulin Ratio 1.2 (0.9-2) Lipase 60 (11-82) U/L SARS-CoV-2 (PCR) NEGATIVE (Negative) Influenza Type A (PCR) Negative (Neg) Influenza Type B (PCR) Negative (Neg) RSV (RT-PCR) Negative (Neg) Administered Medications Discontinued Medications Furosemide (Furosemide Inj 20 Mg/2 Ml Vial) 20 mg IV ONE ONE Stop: 04/20/25 10:42 Last Admin: 04/20/25 10:45 Dose: 20 mg Documented By: nrs Imaging Data Radiologist's Impression: Chest X-Ray 04/20/25 09:14 XR chest 1V portable CLINICAL HISTORY: Chest pain, nonspecific COMPARISON STUDY: Chest CT March 22, 2021. Chest radiograph April 16, 2024. FINDINGS: There is no pneumothorax or pleural effusion. A 2.1 cm nodular density within the lateral aspect of the right upper lung is noted. Myocardium neck is unchanged. No evidence for pulmonary edema. No consolidation to suggest pneumonia. IMPRESSION: 1. Cardiomegaly. No evidence for pulmonary edema. 2. Suspected increase in size of the previously described suspicious right upper lobe pulmonary nodule. ACT 112: Negative or not required by law. Electronically signed by: Soy Pascal M.D. 04/20/2025 10:02 AM Discharge Plan Visit Data Chief Complaint: Cardiac Assessment Stated Complaint: DIFFICULTY BREATHING, WATCH SAYS AFIB, LOW PULSE ED Provider: Mariel Valdes Discharge Problem: Acute dyspnea, New onset a-fib, Acute exacerbation of CHF (congestive heart failure) Patient Disposition: Admitted As Inpatient Condition: Fair Forms Stand Alone Forms: [facility] [employer] Prescriptions Prescriptions: No Action Lactobacillus acidophilus [Acidophilus] capsule 10 mg PO QAM cholecalciferol (vitamin D3) 25 mcg (1,000 unit) capsule 25 mcg PO DAILY losartan 25 mg tablet 25 mg PO QAM Qty: 90 3RF Hold Instructions: Resume on 04/25/24. Hold until told to restart by your PCP cinacalcet 30 mg tablet 30 mg PO 2XWK 90 Days Qty: 90 3RF Rx Instructions: only taking Wednesdays and Saturdays multivitamin Tablet 1 tab PO QAM omega 9-gij-ill-fish oil [Fish Oil] 1,200 (144-216) mg capsule 1 cap PO PM furosemide 20 mg tablet 20 mg PO DAILY Rx Instructions: TAKE 1 TABLET BY MOUTH DAILY Referrals Referrals: Rob Pendleton DO [Primary Care Provider] -
[2025-04-20 09:37] LABS: Hematocrit (blood only) 40.3 % (37.0-47.0); Hemoglobin 13.2 g/dL (12.0-16.0); Immature Granulocytes # (auto) 0.09 K/uL (0.01-0.20); Immature Granulocytes % (auto) 0.8 %; Mean Corpuscular Hemoglobin 31.0 pg (25.0-34.0); Mean Corpuscular Volume 94.6 fL (80.0-100.0); Platelet Count 228 K/uL (130-400); RDW Standard Deviation 49.4 fL (36.4-46.3); Red Blood Count 4.26 M/uL (4.20-5.40); White Blood Count 10.61 K/ul (4.8-10.8)
[2025-04-20 09:55] LABS: Alanine Aminotransferase 40.0 U/L (7-52); Albumin Globulin Ratio 1.2 (0.9-2); Albumin Level 4.5 gm/dl (3.4-5.0); Alkaline Phosphatase 58.0 U/L (34-104); Anion Gap 11.0 (3-11); Bilirubin,Total 0.5 mg/dl (0.2-1.0); Blood Urea Nitrogen 54.0 mg/dl (6-23); Calcium 10.3 mg/dl (8.6-10.3); Carbon Dioxide 23.0 mmol/L (21-32); Chloride 105.0 mmol/L (98-107); Creatinine Clr Calc Pharmacy 31.4 ml/min; Globulin 3.7 gm/dl (2.5-4.0); Glucose 159.0 mg/dl (70-99(Fasting)); Lipase 60.0 U/L (11-82); Magnesium 2.1 mg/dl (1.7-2.4); Potassium 4.2 mmol/L (3.5-5.1); Sodium 139.0 mmol/L (136-145); Total Protein 8.2 gm/dl (6.0-8.3)
[2025-04-20 10:03] LABS: INR 1.1 (0.9-1.1); Prothrombin Time 11.2 Seconds (9.0-12.0)
--- NOTE | 2025-04-20 10:04 | XRay Report ---
XR chest 1V portable CLINICAL HISTORY: Chest pain, nonspecific COMPARISON STUDY: Chest CT March 22, 2021. Chest radiograph April 16, 2024. FINDINGS: There is no pneumothorax or pleural effusion. A 2.1 cm nodular density within the lateral a spect of the right upper lung is noted. Myocardium neck is unchanged. No evidence for pulmonary edema . No consolidation to suggest pneumonia. IMPRESSION: 1. Cardiomegaly. No evidence for pulmonary edema. 2. Suspected increase in size of the previously described suspicious right upper lobe pulmonary nodul e. ACT 112: Negative or not required by law. Electronically signed by: Soy Pascal M.D. 04/20/2025 10:02 AM
[2025-04-20 10:39] LABS: Influenza A virus by PCR Negative (Neg); Influenza B virus by PCR Negative (Neg); SARS CoV2 RNA(COVID-19) Ceph NEGATIVE (Negative)
[2025-04-20] MEDS: FUROSEMIDE INJ 20 MG/2 ML VIAL IV ONE (10:45)
--- NOTE | 2025-04-20 11:26 | History & Physical Report ---
Date of Service April 20, 2025 Assessment & Plan (1) New onset a-fib: (2) Fall: Plan This patient is an 89-year-old female who presented on 04/20 for progressive MANZO x 1 week. No prior history of atrial fibrillation or heart failure to her knowledge, but she does take Lasix daily for history of LE edema. Coming in for cardiac assessment. #New onset atrial fibrillation EKG on arrival revealed A-fib with competing junctional pacemaker at 98 bpm; QTc 485 Troponin elevated at 50.4 on arrival, repeat pending; trend q6h to peak Last echocardiogram on 08/04/2024 revealed LVEF at 65-70%; grade II diastolic dysfunction Echocardiogram ordered, pending TSH ordered, pending [id number] Score: 5 Initiate Eliquis 5 mg BID Will defer initiation of beta-estefanía at this time, as rate is well-controlled on admission Additionally, she did not tolerate metoprolol during her most recent admission Continuous telemetry monitoring #H/o LE edema Weight gain 121 -> 125 lb in the week [employer] While patient denies history of CHF, noted to have grade 2 diastolic dysfunction on most recent echocardiogram Increase Lasix from 20 mg p.o. -> 20 mg IV QAM Echocardiogram (as above) Heart healthy diet Daily weights Strict I&O monitoring #H/o nonsustained V. tach Follows with Dr. Gamble (Cardiology) Noted to have frequency PVCs, bigeminy, and short run of Vtach while inpatient Did not tolerate metoprolol or nebivolol well in the past Adverse reaction: After take metoprolol, she reported confusion, lightheadedness, and feeling completely out of it #Fall Patient tripped and sustained a mechanical fall while doing laundry on Saturday 04/14 No head strike or LOC; fell onto her left hip and wrist PT/OT evaluations appreciated Fall precautions #HTN Continue losartan # Osteoporosis Continue vitamin D supplements Recheck a.m. vitamin D level #Hyperparathyroidism S/p parathyroid surgery in 2010 and repeat in August 2022 (unsuccessful) Follows with endocrinology as an OP Continue Cinacalcet twice weekly Disposition: Obs - admit to [facility] telemetry VTE PPx: Eliquis History of Present Illness Chief Complaint: Cardiac Assessment Primary Care Provider: Rob Pendleton DO Mrs. Mendoza is an 89-year-old female with PMH of CKD stage III, situational anxiety, sinus node dysfunction, Tanner syndrome, and osteoporosis. She presented on 04/20 for progressive MANZO x 1 week. Patient reports that activities that would not cause her difficulty breathing, have led her to struggle in the past week. For instance she would bend over and this would "kick up a storm". Today, she told her daughter that she cannot take a few steps without feeling "exhausted". Patient denies prior history of atrial fibrillation. While she denies SOB at rest at this time, she does report that she has had "a little" SOB at rest this past week. No chest pain, but endorses chest "tightness". Additionally, patient wears an iWatch, which reported that she went into atrial fibrillation on Tuesday 04/17. She then had 5 additional episodes of A-fib on Thursday. Additionally, patient sustained a mechanical fall while doing her laundry on Saturday 04/14: Patient was attempting to place clothing on a bladder changer when she lost her balance, and step forward to catch herself but stubbed her toe. No head strike or LOC; not on blood thinners; she struck her left hip/buttocks, and left wrist. She has a bruise on her left lateral buttocks that is tender to palpation, she reports the swelling and pain in her left wrist have largely subsided. She declines an x-ray of her left wrist at this time. Patient previously followed with cardiology (Dr. Gamble) for history of V. tach. No sick contacts to her knowledge. No cough. Patient lives on her own and is largely independent at baseline. She ambulates with a rolling walker in the mornings while getting up, but can get around her house without any ambulatory assist devices most of the time. Additionally, while she denies chest palpitations, she reports that she has felt "flutters" in the past, and that have grown increasingly frequent this past week. Sitting alleviates her symptoms. Patient manages her own medications at home. She took her regular morning medications today (Lasix and losartan). No recent change in medications. She denies prior history of heart failure, but does take Lasix daily for history of lower extremity edema. While she denies any swelling in her legs, she reports that she has had around 4 to 5 pounds of weight gain this week. She normally weighs around 121 pounds, but reports she was 125.8 this morning. While she denies any recent change in diet, she does not always watch her salt intake at home. For instance, she was having soup this past week (chicken and veggies), and while she normally harrington down her soup to decrease sodium intake, she did not do that this week. History of issues with her parathyroid involving surgeries in 2010, in 2020. Patient reports she is not currently on blood thinners, but does not have any reasons why she cannot be placed on blood thinners (no history of brain bleeds, GI bleeds, prior strokes). That patient is mildly hypertensive at 141/66 at time of admission; vitals otherwise stable. ED course: Furosemide 20 mg IV ROS: Patient endorses progressive MANZO, occasional SOB at rest, chest tightness, and GI discomfort (patient attributes to her hiatal hernia). Patient denies fever, chills, night-sweats, dizziness/lightheadedness, chest pain, chest palpitations, congestion, cough, pleuritic CP, abdominal pain, N/V/D, changes in urinary/bowel habits, burning with urination, blood in the urine/stool, or numbness/tingling/swelling in the legs. Allergies Allergy/AdvReac Type Severity Reaction Status Date / Time adhesive tape Allergy redness Verified 04/20/25 11:07 metoprolol AdvReac Intermediate AMS Verified 04/20/25 14:12 acetaminophen AdvReac Unknown CHEMICAL Verified 04/20/25 11:07 HEPATITIS capsaicin AdvReac Unknown "VOLTAREN" Verified 04/20/25 11:07 CHEMICAL HEPATITIS diclofenac AdvReac Unknown "VOLTAREN" Verified 04/20/25 11:07 CHEMICAL HEPATITIS Diclopak AdvReac Unknown "VOLATEN" Verified 06/08/09 03:30 CHEMICAL HEPATITIS Home Medications Medication Instructions Recorded Confirmed Type Lactobacillus acidophilus 10 mg PO QAM 11/15/18 04/20/25 History (Acidophilus capsule) multivitamin 1 tab PO QAM 04/14/24 04/20/25 History cholecalciferol (vitamin D3) 25 25 mcg PO DAILY 05/31/24 04/20/25 History mcg (1,000 unit) capsule cinacalcet 30 mg tablet 30 mg PO 2XWK 90 days #90 tabs 02/22/25 04/20/25 Rx losartan 25 mg tablet 25 mg PO QAM #90 tabs 02/22/25 04/20/25 Rx omega 9-fxr-mjl-fish oil 1,200 mg 1 cap PO PM 02/22/25 04/20/25 History (144 mg-216 mg) capsule (Fish Oil) furosemide 20 mg tablet 20 mg PO DAILY 04/20/25 04/20/25 History Past Med/Surg History Problem List (Updated 04/20/25 @ 12:48 by Star Kohli PA-C) Fall Acute exacerbation of CHF (congestive heart failure) (Acute) New onset a-fib (Acute) Acute dyspnea (Acute) Edema of both legs Dyspepsia Acute pyelonephritis (Acute) V-tach (Acute) Frequent PVCs Fluttering heart Osteoporosis Osteopenia with very high FRAX score Greater trochanteric bursitis Neurogenic claudication Chronic SI joint pain Lumbar spondylosis 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 Allred Surgical History H/O ovarian cystectomy H/O dilation and curettage H/O colonoscopy History of lumbar laminectomy S/P tonsillectomy S/P total parathyroidectomy History of cataract surgery H/O breast biopsy History of appendectomy Family History Mother Muscle pain Hypertension Father Myocardial infarction Renal failure Hypertension Sister Glaucoma Hyperparathyroidism Denies family history of Ovarian cancer Prostate cancer Diabetes Depression Breast cancer Colorectal cancer Stroke Social History Smoking Status: Never smoker Tobacco Type: Cigarettes Age Started Using Tobacco: 19; Age Quit Using Tobacco: 31; packs per day: 1; Cigarettes Per Day: 10; Second Hand Exposure: No; Do You Dip or Chew Tobacco: No; Hx Alcohol Use: No Hx Substance Use: No Preferred Language: Togolese Communication Ability: Effective Visual Impairment: Limited Hearing Ability: Use of Hearing Aid Flow Trader Required: No Beliefs That Will Affect Care: None marital status: / Current Living Situation: Alone current occupational status: retired Feels Safe at Home: Yes Childhood Exposure to Second-Hand Smoke: No Diet: regular caffeine: No during the past year weight has: other Dental Care, Regularly: Yes Physical Activity Frequency: Daily Physical Activity Frequency Comment: walking daily Seatbelt Use: always Sunscreen Use: No Assistive Devices: Cane, Glasses and Hearing Aid - Bilateral Review of Systems Review of Systems: See HPI above Physical Exam Physical Exam: General: no acute distress; pleasant affect; daughter at bedside; non-toxic appearing; frail-appearing; cooperative; SpO2 97% on RA HEENT: normocephalic, atraumatic; PERRLA; vision and hearing intact Neck: supple; trachea midline Skin: warm, dry without signs of tenting; no cyanosis; no rashes, bruising, lesions, or erythema noted CV: chest wall NTP; irregularly irregular heart rate around 90 to 105 bpm; 3/6 systolic ejection murmur auscultated at the second ICS MCL; pulses intact and symmetric at radial, DP, and PT Lungs: no acute respiratory distress; symmetrical chest wall expansion; clear breath sounds across all lung knight w/o adventitious sounds; no wheezing ABD: Soft, NTP; BS present; no rebound/guarding; no distention MSK: no tics or fasciculations; no edema noted in the LEs b/l, nonerythematous Left hip: Patient exhibits a superficial, purple contusion on her left lateral buttocks; the left hip and thigh are NTP; patient demonstrates ability to flex both her left hip and knee 90 degrees without difficulty (full active ROM) LEs: Patient demonstrates ability to wiggle toes bilaterally; 5/5 strength with plantar/dorsiflexion against resistance in the ankles bilaterally Neuro: A&Ox3; normal mood and affect; fluent speech; sensation intact and symmetric in the LEs b/l assessed by light touch Results & Data Results & Data Vital Signs (Past 12 Hours) Vital Signs Temp Pulse Pulse Resp BP BP Pulse Ox 04/20/25 10:47 84 16 141/66 H 99 04/20/25 09:51 84 18 141/66 H 99 04/20/25 09:16 79 22 99 04/20/25 09:15 78 04/20/25 09:08 36.6 C 74 20 130/78 99 04/20/25 09:02 72 18 99 04/20/25 09:02 O2 Del Method 04/20/25 10:47 Room Air 04/20/25 09:51 Room Air 04/20/25 09:16 Room Air 04/20/25 09:15 04/20/25 09:08 Room Air 04/20/25 09:02 Room Air 04/20/25 09:02 Room Air Laboratory Results Abnormal lab results 04/20/25 Range/Units 09:20 RDW Std Deviation 49.4 H (36.4-46.3) fL Neut # (Auto) 8.10 H (1.40-6.50) K/uL BUN 54 H (6-23) mg/dl Creatinine 1.43 H (0.6-1.2) mg/dl BUN/Creatinine Ratio 37.8 H (10-20) Glucose 159 H (70-99(Fasting)) mg/dl AST 48 H (13-39) U/L Troponin I High Sens 50.4 H* (0-14) pg/ml B-Natriuretic Peptide 1274 H (0-100) pg/ml Diagnostic Findings Chest X-Ray 04/20/25 09:14 XR chest 1V portable CLINICAL HISTORY: Chest pain, nonspecific COMPARISON STUDY: Chest CT March 22, 2021. Chest radiograph April 16, 2024. FINDINGS: There is no pneumothorax or pleural effusion. A 2.1 cm nodular density within the lateral aspect of the right upper lung is noted. Myocardium neck is unchanged. No evidence for pulmonary edema. No consolidation to suggest pneumonia. IMPRESSION: 1. Cardiomegaly. No evidence for pulmonary edema. 2. Suspected increase in size of the previously described suspicious right upper lobe pulmonary nodule. ACT 112: Negative or not required by law. Electronically signed by: Soy Pascal M.D. 04/20/2025 10:02 AM ECG Additional Comments: ECG revealed atrial fibrillation with competing junctional pacemaker at 98 bpm; QTc 485 Code Status & VTE Plan Code Status DNR/DNI VTE Prophylaxis Plan VTE Prophylaxis will be ordered: Yes PG Care Time/CCT Total # of Minutes Spent Total Time Spent with Patient: Total time spent is greater than 50% in coordination of care (as documented) at patient's floor/unit and/or counseling patient: Coding [place] [address] INT INP/OBS CARE 3/75MIN Patient Type Established History Comprehensive Exam Comprehensive Medical Decision Making High Complexity Diagnoses New onset a-fib I48.91 Fall W19.XXXA
--- NOTE | 2025-04-20 13:48 | XRay Report ---
XR hip LT 2V w pelvis CLINICAL HISTORY: Fall. Left hip pain. Evaluate for fracture. COMPARISON: Pelvis radiograph October 22, 2022. CT of the abdomen and pelvis April 13, 2024. FINDINGS: Sacroiliac joints and symphysis pubis are intact. There are no fractures within the pelvis or hips. Calcified fibroids are incidentally noted. There is mild bilateral hip osteoarthritis. IMPRESSION: No fractures within the pelvis or hips. ACT 112: Negative or not required by law. Electronically signed by: Soy Pascal M.D. 04/20/2025 1:46 PM
--- NOTE | 2025-04-20 13:58 | XCELERA ---
[id number]
[2025-04-20] MEDS ORDERED: ACETAMINOPHEN 325 MG TAB PO PRN (14:51)
[2025-04-20] MEDS: APIXABAN 5 MG TABLET PO SCH (20:09)
[2025-04-21 06:29] LABS: Hematocrit (blood only) 35.0 % (37.0-47.0); Hemoglobin 11.9 g/dL (12.0-16.0); Immature Granulocytes # (auto) 0.05 K/uL (0.01-0.20); Immature Granulocytes % (auto) 0.6 %; Mean Corpuscular Hemoglobin 31.6 pg (25.0-34.0); Mean Corpuscular Volume 92.8 fL (80.0-100.0); Platelet Count 190 K/uL (130-400); RDW Standard Deviation 48.4 fL (36.4-46.3); Red Blood Count 3.77 M/uL (4.20-5.40); White Blood Count 7.99 K/ul (4.8-10.8)
[2025-04-21 06:44] LABS: Anion Gap 11.0 (3-11); Blood Urea Nitrogen 55.0 mg/dl (6-23); Calcium 9.2 mg/dl (8.6-10.3); Carbon Dioxide 19.0 mmol/L (21-32); Chloride 109.0 mmol/L (98-107); Creatinine Clr Calc Pharmacy 28.8 ml/min; Glucose 125.0 mg/dl (70-99(Fasting)); Potassium 4.4 mmol/L (3.5-5.1); Sodium 139.0 mmol/L (136-145)
[2025-04-21] MEDS: CHOLECALCIFEROL 25 MCG (1000 UNITS) TAB PO SCH (08:05)
[2025-04-21] MEDS: LOSARTAN POTASSIUM 25 MG TAB PO SCH (08:05)
[2025-04-21] MEDS: FUROSEMIDE INJ 20 MG/2 ML VIAL IV SCH (11:10)
--- NOTE | 2025-04-21 14:24 | Cardiology Consultation ---
Date of Consultation April 21, 2025 Assessment & Plan (1) Acute heart failure with preserved ejection fraction: (2) New onset a-fib: (3) Mitral valve prolapse syndrome: (4) Mitral regurgitation: (5) Pulmonary hypertension: Plan ASSESSMENT/PLAN: 1. Acute on chronic heart failure with preserved EF: She appears mildly hypervolemic. Recommend another dose of Lasix 20 mg IV x 1 and then likely resume her home dose of 20 mg p.o. daily with an additional 20 mg daily as n eeded for weight gain, shortness of breath, or edema. We discussed the importance of a low-sodium diet, less than 2000 mg daily. Continue daily weights. Enroll in heart failure program. 2. Atrial fibrillation: Persistent. We discussed the diagnosis. Mildly symptomatic at times and it may have contributed to her heart failure. We discussed treatment strategies such as rate control versus rhythm control. She was agreeable for more conservative measures. Has not tolerated metoprolol in the past but tolerating carvedilol thus far after 1 dose. Would recommend carvedilol twice daily if using carvedilol. Could also consider diltiazem if she does not tolerate beta-estefanía, however currently her heart rate is reasonable. Recommend Eliquis 2.5 mg twice daily given age, weight. Monitor CBC and renal function. 3. Mitral valve prolapse with mitral regurgitation: Significant mitral regurgitation, which is chronic. We discussed the diagnosis. She was aware of the diagnosis and stated that she has declined pursuing intervention for corrective measures. She prefers conservative measures. We discussed natural history. She was comfortable with this. 4. Pulmonary and hypertension: Likely related to her mitral valve regurgitation and heart failure. Chronic issue. She wishes for conservative measures. 5. CKD: As per primary hospitalist service. 6. Pulmonary nodule: As per primary hospitalist service. 7. Disposition: Recommend heart failure program. Likely okay for discharge tomorrow. Please call on-call manager wealth management for any further questions or concerns as I will be away from the hospital for the next 2 weeks. Follow-up with her primary manager wealth management as well, Dr. Gamble. Patient care communicated with primary hospitalist service, Dr. Carl and Star Kohli PA-C. Highly complex medical issues. 60 minutes spent for this encounter, which includes [id number] time, counseling patient, coordinating care care, reviewing records, and completing documentation. Thank you for allowing me to participate in the care of your patient. Please call for any other questions or concerns. Sincerely, Dayday Gomez M.D. History of Present Illness Reason for Consultation: "MVP + severe pulm HTN" Requesting Physician: Star Kohli PA-C Attending Physician: Petr Carl MD History of Present Illness Mrs. 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 Her primary manager wealth management is Dr. Gamble. She was hospitalized on 04/20/2025 after experiencing potential atrial fibrillation since 04/17/2025 per her smart watch. She had been feeling palpitations such as a flutter sensation. She then developed lower extremity edema over the past couple of days with a 3 pound weight gain. Mild shortness of breath occurred. She weighs herself daily at home and her weight is typically 120 to 122 pounds. After being here, she received 2 doses of Lasix 20 mg IV and her breathing is back to baseline. She denies chest pain, syncope, near syncope, melena, hematochezia, hematuria. She uses a cane and walker for ambulation. She recalls not tolerating metoprolol and Bystolic in the past. Hospitalist service have initiated carvedilol which she seems to be tolerating thus far. She was placed on Eliquis by hospitalist service for newly diagnosed atrial fibrillation. Review of systems: As above. Family history: Father had CAD. Social history: Quit smoking in her 20s. Denies alcohol or drug abuse. Lives alone. Has a daughter who lives locally. Grandchildren. Her in 2023. She was initially unaccompanied but her daughter presented to the bedside. Allergies Allergy/AdvReac Type Severity Reaction Status Date / Time adhesive tape Allergy redness Verified 04/20/25 11:07 metoprolol AdvReac Intermediate AMS Verified 04/20/25 14:12 acetaminophen AdvReac Unknown CHEMICAL Verified 04/20/25 11:07 HEPATITIS capsaicin AdvReac Unknown "VOLTAREN" Verified 04/20/25 11:07 CHEMICAL HEPATITIS diclofenac AdvReac Unknown "VOLTAREN" Verified 04/20/25 11:07 CHEMICAL HEPATITIS Diclopak AdvReac Unknown "VOLATEN" Verified 06/08/09 03:30 CHEMICAL HEPATITIS Home Medications Medication Instructions Recorded Confirmed Type Lactobacillus acidophilus 10 mg PO QAM 11/15/18 04/20/25 History (Acidophilus capsule) multivitamin 1 tab PO QAM 04/14/24 04/20/25 History cholecalciferol (vitamin D3) 25 25 mcg PO DAILY 05/31/24 04/20/25 History mcg (1,000 unit) capsule cinacalcet 30 mg tablet 30 mg PO 2XWK 90 days #90 tabs 02/22/25 04/20/25 Rx losartan 25 mg tablet 25 mg PO QAM #90 tabs 02/22/25 04/20/25 Rx omega 4-[id number]-jkm-fish oil 1,200 mg 1 cap PO PM 02/22/25 04/20/25 History (144 mg-216 mg) capsule (Fish Oil) furosemide 20 mg tablet 20 mg PO DAILY 04/20/25 04/20/25 History Problem List (Updated 04/21/25 @ 14:37 by Gwyn Gomez MD) Acute heart failure with preserved ejection fraction Fall Acute exacerbation of CHF (congestive heart failure) (Acute) New onset a-fib (Acute) Acute dyspnea (Acute) Edema of both legs Dyspepsia Acute pyelonephritis (Acute) V-tach (Acute) Frequent PVCs Fluttering heart Osteoporosis Osteopenia with very high FRAX score Greater trochanteric bursitis Neurogenic claudication Chronic SI joint pain Lumbar spondylosis 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 Allred Surgical History H/O ovarian cystectomy H/O dilation and curettage H/O colonoscopy History of lumbar laminectomy S/P tonsillectomy S/P total parathyroidectomy History of cataract surgery H/O breast biopsy History of appendectomy Family History Mother Muscle pain Hypertension Father Myocardial infarction Renal failure Hypertension Sister Glaucoma Hyperparathyroidism Denies family history of Ovarian cancer Prostate cancer Diabetes Depression Breast cancer Colorectal cancer Stroke Social History Smoking Status: Former smoker Tobacco Type: Cigarettes Age Started Using Tobacco: 19; Age Quit Using Tobacco: 31; packs per day: 1; Cigarettes Per Day: 10; Second Hand Exposure: No; Do You Dip or Chew Tobacco: No; Hx Alcohol Use: No Hx Substance Use: No Preferred Language: Bulgarian Communication Ability: Effective Visual Impairment: Limited Hearing Ability: Use of Hearing Aid Office Support Assistant Required: No Beliefs That Will Affect Care: None marital status: / Current Living Situation: Alone current occupational status: retired Feels Safe at Home: Yes Childhood Exposure to Second-Hand Smoke: No Diet: regular caffeine: No during the past year weight has: other Dental Care, Regularly: Yes Physical Activity Frequency: Daily Physical Activity Frequency Comment: walking daily Seatbelt Use: always Sunscreen Use: No Assistive Devices: Cane and Walker Physical Exam Physical Exam: Gen.: No acute distress. Alert and oriented. HEENT: Anicteric sclera. Neck: Mild JVD. Hepatojugular reflux noted. No bruits. Normal carotid upstrokes bilaterally. Cardiac: Irregularly irregular. Normal rate. Normal S1-S2. 2/6 holosystolic murmur best heard at the apex. Pulmonary: Clear to auscultation bilaterally without wheezes, rales, or rhonchi. Abdomen: Soft, nontender, nondistended, with normoactive bowel sounds. No bruits noted. Extremities: 2+ radial pulses bilaterally. 2+ posterior tibialis pulses bilaterally. Trace bilateral lower extremity edema. No cyanosis. Results & Data Vital Signs (Past 12 Hours) Vital Signs Temp Pulse Resp BP BP Pulse Ox O2 Del Method 04/21/25 11:39 36.5 C 78 18 100/57 L 97 Room Air 04/21/25 07:34 36.3 C L 87 16 119/72 95 Room Air Intake & Output 04/19/25 04/20/25 04/21/25 04/22/25 06:59 06:59 06:59 06:59 Intake Total 510 / 510 Balance 510 / 510 Weight 275 lb 9.245 oz Laboratory Results Laboratory Results - last 24 hr 04/21/25 05:59 WBC 7.99 RBC 3.77 L Hgb 11.9 L Hct 35.0 L MCV 92.8 MCH 31.6 MCHC 34.0 RDW Std Deviation 48.4 H RDW Coeff of Brook 14.4 Plt Count 190 MPV 11.6 Immature Gran % (Auto) 0.6 Neut % (Auto) 60.3 Lymph % (Auto) 26.3 Cloud % (Auto) 8.1 Eos % (Auto) 3.4 Baso % (Auto) 1.3 Neut # (Auto) 4.82 Lymph # (Auto) 2.10 Cloud # (Auto) 0.65 H Eos # (Auto) 0.27 Baso # (Auto) 0.10 Immature Gran # (Auto) 0.05 Sodium 139 Potassium 4.4 Chloride 109 H Carbon Dioxide 19 L Anion Gap 11 BUN 55 H Creatinine 1.56 H Est Cr Clr Drug Dosing 28.8 eGFR 31.58 BUN/Creatinine Ratio 35.3 H Glucose 125 H Calcium 9.2 25-OH Vitamin D Total 53.9 Diagnostic Findings Echo report reviewed 04/20/2025: Normal LV size, wall motion, systolic function. EF 60-65%. No LVH. Normal RV size and systolic function. Severe biatrial dilation. Posterior mitral leaflet prolapse with at least moderate to severe, eccentric MR. Moderate TR. Small pericardial effusion. RVSP 65. No significant change from 08/31/2024 study. Outpatient cardiology note reviewed from 07/28/2024. History and physical report reviewed. ECG personally reviewed 04/20/2025: Atrial fibrillation 98 bpm. LVH with repolarization abnormality. Telemetry personally reviewed: Rate controlled atrial fibrillation. Labs reviewed and notable for mildly elevated high-sensitivity troponin (chronic) flat at 50; elevated BNP (chronic); normal potassium level, abnormal renal function (chronic) normal TSH, mild anemia. Chest x-ray report reviewed 04/20/2025: No pulmonary edema per radiology. No consolidation. Right upper lobe pulmonary nodule per radiology. Medications Administered Current Inpatient Medications Acetaminophen (Acetaminophen 325 Mg Tab) 650 mg PO Q4H PRN PRN Reason: Pain or Fever Stop: 05/20/25 14:50 Apixaban (Apixaban 5 Mg Tablet) 5 mg PO BID [facility] Stop: 05/20/25 20:59 Last Admin: 04/21/25 08:05 Dose: 5 mg Carvedilol (Carvedilol 3.125 Mg Tab) 3.125 mg PO BIDM [facility] Stop: 05/22/25 08:59 Cinacalcet (Cinacalcet Hcl 30 Mg Tab) 30 mg PO WeSa@0900 [facility] Stop: 05/22/25 08:59 Furosemide (Furosemide Inj 20 Mg/2 Ml Vial) 20 mg IV QAM [facility] Stop: 05/21/25 08:59 Last Admin: 04/21/25 11:10 Dose: 20 mg Losartan Potassium (Losartan Potassium 25 Mg Tab) 25 mg PO QAM [facility] Stop: 05/21/25 08:59 Last Admin: 04/21/25 08:05 Dose: 25 mg Vitamin D (Cholecalciferol 25 Mcg (1000 Units) Tab) 25 mcg PO DAILY [facility] Stop: 05/21/25 08:59 Last Admin: 04/21/25 08:05 Dose: 25 mcg PG Care Time/CCT Total # of Minutes Spent Total Time Spent with Patient: Total time spent is greater than 50% in coordination of care (as documented) at patient's floor/unit and/or counseling patient: Coding Level of Care Code 17492 INT INP/OBS CARE 3/75MIN Diagnoses Acute heart failure with preserved ejection fraction I50.31 New onset a-fib I48.91 Mitral valve prolapse syndrome I34.1 Mitral valve insufficiency, unspecified etiology I34.0 Cardiac valve disease etiology: etiology unspecified Pulmonary hypertension I27.20 (4) Mitral regurgitation Cardiac valve disease etiology: etiology unspecified Qualified Code(s): I34.0 - Nonrheumatic mitral (valve) insufficiency
--- NOTE | 2025-04-21 15:41 | Hospitalist Progress Note ---
Date of Service April 21, 2025 Assessment & Plan (1) New onset a-fib: (2) Acute heart failure with preserved ejection fraction: (3) Fall: Plan This patient is an 89-year-old female who presented on 04/20 for progressive MANZO x 1 week. No prior history of atrial fibrillation or heart failure to her knowledge, but she does take Lasix daily for history of LE edema. Coming in for cardiac assessment. #New onset atrial fibrillation EKG on arrival revealed A-fib with competing junctional pacemaker at 98 bpm; QTc 485 Troponin x 2 elevated, but stable at 50.4 -> 50.5 Clinically, patient denies chest pain Echocardiogram revealed LVEF at 60 to 65% with mitral regurg and severe pulmonary hypertension; however, similar when compared to most recent echocardiogram in August 2023 [facility] [id number] Score: 5 Eliquis 2.5 mg BID Carvedilol 3.25 mg BIDM So far rates have been well controlled in the hospital Cardiology consult appreciated Continuous telemetry monitoring for now #Acute HFpEF Weight gain 121 -> 125 lb in the week [employer] Normally Lasix 20 mg p.o. QAM for LE Edema; patient denies history of heart failure ? A-fib is primary contributor Lasix 20 mg IV BID17 while inpatient Echocardiogram (as above) Heart healthy diet Daily weights Strict I&O monitoring HF referral on discharge #H/o nonsustained V. tach Follows with Dr. Gamble (Cardiology) Noted to have frequency PVCs, bigeminy, and short run of Vtach while inpatient Did not tolerate metoprolol or nebivolol well in the past Adverse reaction: After take metoprolol, she reported confusion, lightheadedness, and feeling completely out of it #Fall Patient tripped and sustained a mechanical fall while doing laundry on Saturday 04/14 No head strike or LOC; fell onto her left hip and wrist PT/OT evaluations appreciated, who did not feel she has additional PT/OT needs at this time #HTN Continue losartan # Osteoporosis Continue vitamin D supplements Recheck a.m. vitamin D level #Hyperparathyroidism S/p parathyroid surgery in 2010 and repeat in August 2022 (unsuccessful) Follows with endocrinology as an OP Continue Cinacalcet twice weekly Disposition: Continued stay on MedSurg telemetry in the setting of diuresis VTE PPx: Eliquis Admission and Anticipated Discharge Date Admission Date: April 20, 2025 Supervising Physician Co-Signing Physician Notes Patient seen and examined, chart reviewed, case discussed with Star Kohli PA-C and I agree with the assessment and plan as above except as otherwise noted Labs and images reviewed A-fib. Has some superimposed CHF and a history of valvular disease. She does not wish for surgical intervention for her valvular disease. Has intermittent lower extremity edema, reports that her lower extremity was actually fairly good recently but has been short of breath. She does have some JVD. Agree with volume optimizing with Lasix and likely with some atrial irritability contributing to her A-fib from atrial stretch. She has not tolerated beta- blockers in the past which were prescribed due to an episode of frequent PVCs, bigeminy and a short run of V. tach in the past. could consider low-dose calcium channel estefanía if she has intolerance to this, she reports that she had some brain fog with metoprolol in the past. Currently aggressive rate control is not required and rate 70s80s at bedside. May have had some rate related congestion prior to admission. While she has had lower extremity edema which sounds more like stasis, she denies past history of heart failure. On exam is pleasant, nondistressed. Irregularly irregular with rates 70s80s. Mild pitting ankle edema is present. JVD is present. Lungs are diminished but grossly clear. Agree with above Subjective Mrs. Blanco reports she is still noticing "breathlessness" with ambulation. She was up walking with PT and OT earlier today, was able to ambulate independently, but still feels severe deconditioned from "lying around all week". Patient cannot feel when she goes into atrial fibrillation, but notes that "sometimes she feels "flutters" and other times she feels nothing. She has had 3 additional notifications from her iWatch today telling her she is in atrial fibrillation. In regard to beta-blockers, she is fairly against the idea of being on beta-blockers long-term. When she took metoprolol in the past, she said she had no energy, and felt foggy, and that it would be "detrimental" to her if she restarted them in regard to history of sleep apnea, she reports no p rior history of sleep apnea, but has noticed that her watch sometimes comments on "sleep apnea". She has no difficulty sleeping, but is never had any sleep studies done. Patient is fairly clear that she does not want any procedure done on her mitral valve, even if it was potentially contributing to her shortness of breath or dyspnea on exertion. ROS: Patient endorses progressive MANZO, lightheadedness, anxiety, and generalized fatigue. Patient denies fevers, chest pain, chest palpitations, chest tightness (resolved), cough, abdominal pain, N/V/D, or changes in urinary/bowel habits. Review of Systems Review of Systems: See HPI above Physical Exam Physical Exam: General: no acute distress; pleasant affect; daughter at bedside; non-toxic appearing; frail-appearing; cooperative; SpO2 97% on RA HEENT: normocephalic, atraumatic; PERRLA; vision and hearing intact Neck: supple; +JVD; trachea midline Skin: warm, dry without signs of tenting; no cyanosis; no rashes, bruising, lesions, or erythema noted CV: chest wall NTP; irregularly irregular heart rate around 80-90bpm; 3/6 systolic ejection murmur auscultated at the second ICS MCL; pulses intact and symmetric at radial, DP, and PT Lungs: no acute respiratory distress; symmetrical chest wall expansion; clear breath sounds across all lung knight w/o adventitious sounds; no wheezing ABD: Soft, NTP; BS present; no rebound/guarding; no distention MSK: no tics or fasciculations; no edema noted in the LEs b/l, nonerythematous Left hip: Patient exhibits a superficial, purple contusion on her left lateral buttocks; the left hip and thigh are NTP; patient demonstrates ability to flex both her left hip and knee 90 degrees without difficulty (full active ROM) LEs: Patient demonstrates ability to wiggle toes bilaterally; 5/5 strength with plantar/dorsiflexion against resistance in the ankles bilaterally Neuro: A&Ox3; normal mood and affect; fluent speech; sensation intact and symmetric in the LEs b/l assessed by light touch Gait: Patient exhibits the ability to ambulate independently in the hallway without assistance; however, require frequent stops to catch her breath Results & Data Results & Data Vital Signs (Past 12 Hours) Vital Signs Temp Pulse Resp BP BP Pulse Ox O2 Del Method 04/21/25 11:39 36.5 C 78 18 100/57 L 97 Room Air 04/21/25 07:34 36.3 C L 87 16 119/72 95 Room Air PG Care Time/CCT Total # of Minutes Spent Total Time Spent with Patient: Total time spent is greater than 50% in coordination of care (as documented) at patient's floor/unit and/or counseling patient: Coding [place] [address] SUB INP/OBS CARE 3/50MIN Patient Type Established Medical Decision Making High Complexity Diagnoses New onset a-fib I48.91 Acute heart failure with preserved ejection fraction I50.31 Fall W19.XXXA
[2025-04-21] MEDS: FUROSEMIDE INJ 20 MG/2 ML VIAL IV ONE (15:49)
[2025-04-21 21:17] LABS: Hematocrit (blood only) 37.1 % (37.0-47.0); Hemoglobin 12.5 g/dL (12.0-16.0); Immature Granulocytes # (auto) 0.05 K/uL (0.01-0.20); Immature Granulocytes % (auto) 0.6 %; Mean Corpuscular Hemoglobin 31.8 pg (25.0-34.0); Mean Corpuscular Volume 94.4 fL (80.0-100.0); Platelet Count 214 K/uL (130-400); RDW Standard Deviation 50.0 fL (36.4-46.3); Red Blood Count 3.93 M/uL (4.20-5.40); White Blood Count 8.91 K/ul (4.8-10.8)
[2025-04-21] MEDS: APIXABAN 2.5 MG TAB PO SCH (21:17)
[2025-04-21 21:40] LABS: Anion Gap 10.0 (3-11); Calcium 9.7 mg/dl (8.6-10.3); Carbon Dioxide 24.0 mmol/L (21-32); Chloride 103.0 mmol/L (98-107); Magnesium 2.0 mg/dl (1.7-2.4); Potassium 3.9 mmol/L (3.5-5.1); Sodium 137.0 mmol/L (136-145)
[2025-04-21 21:46] LABS: Blood Urea Nitrogen 60.0 mg/dl (6-23); Creatinine Clr Calc Pharmacy 25.5 ml/min; Glucose 154.0 mg/dl (70-99(Fasting))
--- NOTE | 2025-04-21 22:39 | Electrocardiogram Report ---
Test Reason : Blood Pressure : */* mmHG Vent. Rate : 98 BPM Atrial Rate : * BPM P-R Int : * ms QRS Dur : 116 ms QT Int : 380 ms P-R-T Axes : * -31 155 degrees QTcB Int : 485 ms Atrial fibrillation with a competing junctional pacemaker Left axis deviation Left ventricular hypertrophy with QRS widening and repolarization abnormality ( R in aVL , Juan Miguel pr oduct , Romhilt-Kulkarni ) Abnormal ECG When compared with ECG of 13-Jan-2025 11:25, Atrial fibrillation has replaced Sinus rhythm QT has lengthened Confirmed by Gwyn Gomez ([id number]) on 04/21/2025 10:38:32 PM Referred By: REFERRED SELF Confirmed By: Gwyn Gomez
[2025-04-22 06:21] LABS: Hematocrit (blood only) 36.0 % (37.0-47.0); Hemoglobin 11.9 g/dL (12.0-16.0); Immature Granulocytes # (auto) 0.07 K/uL (0.01-0.20); Immature Granulocytes % (auto) 0.8 %; Mean Corpuscular Hemoglobin 30.9 pg (25.0-34.0); Mean Corpuscular Volume 93.5 fL (80.0-100.0); Platelet Count 194 K/uL (130-400); RDW Standard Deviation 50.0 fL (36.4-46.3); Red Blood Count 3.85 M/uL (4.20-5.40); White Blood Count 8.40 K/ul (4.8-10.8)
[2025-04-22 06:52] LABS: Anion Gap 8.0 (3-11); Blood Urea Nitrogen 56.0 mg/dl (6-23); Calcium 9.2 mg/dl (8.6-10.3); Carbon Dioxide 25.0 mmol/L (21-32); Chloride 105.0 mmol/L (98-107); Creatinine Clr Calc Pharmacy 18.0 ml/min; Glucose 109.0 mg/dl (70-99(Fasting)); Potassium 4.2 mmol/L (3.5-5.1); Sodium 138.0 mmol/L (136-145)
[2025-04-22] MEDS: FUROSEMIDE INJ 20 MG/2 ML VIAL IV SCH (08:39)
[2025-04-22] MEDS: CINACALCET HCL 30 MG TAB PO SCH (08:40)
--- NOTE | 2025-04-22 09:51 | Hospitalist Progress Note ---
Date of Service April 22, 2025 Assessment & Plan (1) New onset a-fib: (2) Acute heart failure with preserved ejection fraction: (3) Fall: Plan This patient is an 89-year-old female who presented on 04/20 for progressive MANZO x 1 week. No prior history of atrial fibrillation or heart failure to her knowledge, but she does take Lasix daily for history of LE edema. Coming in for cardiac assessment. #New onset atrial fibrillation EKG on arrival revealed A-fib with competing junctional pacemaker at 98 bpm; QTc 485 Troponin x 2 elevated, but stable at 50.4 -> 50.5 Clinically, patient denies chest pain Echocardiogram revealed LVEF at 60 to 65% with mitral regurg and severe pulmonary hypertension; however, similar when compared to most recent echocardiogram in August 2023 TSH WNL [id number] Score: 5 Eliquis 2.5 mg BID Patient did not tolerate carvedilol We will plan to initiate trial of diltiazem CD 120 mg starting on the evening of 04/22 Per telemetry monitoring, rate controlled at rest in the hospital However, patient had 1 episode of elevated heart rate + A-fib around 108 bpm at 8 AM on 04/22 shortly after getting up Cardiology consult appreciated Continuous telemetry monitoring for now #Acute HFpEF Reported weight 125.8 lb on arrival 04/20 Trending down to 122.1 lb on 04/22 Continue Lasix 20 mg IV BID17 Normally Lasix 20 mg p.o. QAM for LE Edema ? A-fib is primary contributor Lasix 20 mg IV BID17 while inpatient Echocardiogram (as above) Heart healthy diet Daily weights Strict I&O monitoring HF referral on discharge #H/o nonsustained V. tach Follows with Dr. Gamble (Cardiology) Noted to have frequency PVCs, bigeminy, and short run of Vtach while inpatient Did not tolerate metoprolol or nebivolol well in the past Adverse reaction: After take metoprolol, she reported confusion, lightheadedness, and feeling completely out of it #Fall Patient tripped and sustained a mechanical fall while doing laundry on Saturday 04/14 No head strike or LOC; fell onto her left hip and wrist PT/OT evaluations appreciated Likely candidate to return home on discharge #HTN Continue losartan # Osteoporosis Continue vitamin D supplements Recheck a.m. vitamin D level #Hyperparathyroidism S/p parathyroid surgery in 2010 and repeat in August 2022 (unsuccessful) Follows with endocrinology as an OP Continue Cinacalcet twice weekly Disposition: Continued stay on MedSurg telemetry in the setting of diuresis + beta-estefanía/calcium channel estefanía titration VTE PPx: Moeis Admission and Anticipated Discharge Date Admission Date: April 21, 2025 Subjective Mrs. Blanco reports that, while she woke up feeling good, she got up to wash herself around 8 AM and immediately felt fatigued. MANZO with minimal activity. She also reports that she has been nodding off throughout the day at rest, which was similar to what she would do when she was on beta-blockers in the past. She reports her symptoms are in alignment with prior beta-estefanía use, and that her energy levels feel worse today compared to yesterday. While she denies SOB at rest, she feels incredibly winded/drained after any activity, and needs to remain in bed/in her chair. Additionally, last night, she felt like she had pressure around her chest like a "band of tightness". Patient is amenable to staying in the hospital over the weekend, as she was originally supposed to go to [place] this weekend, but has already changed her plans. While she expresses anxiety over the fact that her blood pressure has been lower while in the hospital, she understands that Lasix and carvedilol are likely contributing. She is also happy report that while she was at 125.8 pounds on the day of arrival, she had a standing scale weight this morning and reports it was 122.1 pounds. She reports she is still producing plenty of urine with the Lasix. Additionally, she reports she has not had a bowel movement since she first arrived, and is unsure if she is constipated. ROS: Patient endorses generalized fatigue after minimal exertion, MANZO, chest tightness (like a band around her chest), lower extremity edema b/l last night (which improved from prior), and some lightheadedness. Patient denies fevers, chest pain, chest palpitations, SOB at rest, cough, abdominal pain, N/V, or changes in urinary/bowel habits. Review of Systems Review of Systems: See HPI above Physical Exam Physical Exam: General: no acute distress; pleasant affect; anxious; non-toxic appearing; frail-appearing; cooperative; SpO2 98% on RA HEENT: normocephalic, atraumatic; PERRLA; vision and hearing intact Neck: supple; +JVD; trachea midline Skin: warm, dry without signs of tenting; no cyanosis; no rashes, bruising, lesions, or erythema noted CV: chest wall NTP; irregularly irregular heart rate around 70 bpm; 4/6 systolic ejection murmur auscultated at the second ICS MCL; pulses intact and symmetric at radial, DP, and PT Lungs: no acute respiratory distress; symmetrical chest wall expansion; clear breath sounds across all lung knight w/o adventitious sounds; no wheezing ABD: Soft, NTP; BS present; no rebound/guarding; no distention MSK: no tics or fasciculations; no edema noted in the LEs b/l, nonerythematous LEs: Patient demonstrates ability to wiggle toes bilaterally; +1 pitting edema appreciated on the dorsal aspect of the feet and ankles bilaterally, nonerythematous Neuro: A&Ox3; normal mood and affect; fluent speech; sensation intact and symmetric in the LEs b/l assessed by light touch Results & Data Results & Data Vital Signs (Past 12 Hours) Vital Signs Temp Pulse Pulse Resp BP BP Pulse Ox 04/22/25 08:18 36.4 C L 67 20 108/74 98 04/22/25 07:15 73 04/22/25 03:41 36.4 C L 77 18 116/78 99 04/21/25 23:14 36.5 C 78 18 116/80 97 O2 Del Method 04/22/25 08:18 Room Air 04/22/25 07:15 04/22/25 03:41 Room Air 04/21/25 23:14 Room Air PG Care Time/CCT Total # of Minutes Spent Total Time Spent with Patient: Total time spent is greater than 50% in coordination of care (as documented) at patient's floor/unit and/or counseling patient: Coding [place] [address] SUB INP/OBS CARE 3/50MIN Patient Type Established History Comprehensive Exam Comprehensive Medical Decision Making High Complexity Diagnoses New onset a-fib I48.91 Acute heart failure with preserved ejection fraction I50.31 Fall W19.XXXA
[2025-04-22] MEDS: POLYETHYLENE (MIRALAX) 17 GM PACK PO ONE (15:33)
--- NOTE | 2025-04-23 09:32 | Electrocardiogram Report ---
Test Reason : Blood Pressure : */* mmHG Vent. Rate : 83 BPM Atrial Rate : * BPM P-R Int : * ms QRS Dur : 122 ms QT Int : 414 ms P-R-T Axes : * -28 155 degrees QTcB Int : 486 ms Atrial fibrillation Left ventricular hypertrophy with QRS widening and repolarization abnormality ( R in aVL ) Abnormal ECG When compared with ECG of 20-Apr-2025 09:16, ST now depressed in Anterior leads Confirmed by Maroi Samson ([id number]) on 04/23/2025 9:32:22 AM Referred By: REFERRED SELF Confirmed By: Mario Samson
[2025-04-23] MEDS ORDERED: POLYETHYLENE (MIRALAX) 17 GM PACK PO PRN (09:46)
[2025-04-23] MEDS: POLYETHYLENE (MIRALAX) 17 GM PACK PO ONE (11:01)
--- NOTE | 2025-04-23 15:25 | Hospitalist Progress Note ---
Date of Service April 23, 2025 Assessment & Plan (1) New onset a-fib: (2) Acute heart failure with preserved ejection fraction: (3) Fall: Plan This patient is an 89-year-old female who presented on 04/20 for progressive MANZO x 1 week. No prior history of atrial fibrillation or heart failure to her knowledge, but she does take Lasix daily for history of LE edema. Coming in for cardiac assessment. #New onset atrial fibrillation Troponin x 2 elevated, but stable / downtrending; lower suspicion for ischemic etiology Echocardiogram revealed LVEF at 60 to 65% with mitral regurg and severe pulmonary hypertension; however, similar when compared to most recent echocardiogram in August 2023 TSH WNL [id number] Score: 5 Eliquis 2.5 mg BID To date, patient has not tolerated metoprolol, Nebivolol, carvedilol, or diltiazem Intermittently, tachycardic with exertion However, on 04/23 she began having runs of bradycardia with her A-fib; ?Tachy- ximena syndrome External pacer order from bedside D/c beta-estefanía, CCB May require eval for pacemaker Cardiology consult appreciated Continuous telemetry monitoring #Acute HFpEF Reported weight 125.8 lb on arrival 04/20 Trending down to 120.3 lb on 04/23 Continue Lasix 20 mg IV BID17 Normally Lasix 20 mg p.o. QAM for LE Edema Initially started on Lasix 20 mg IV BID17 HOLD on afternoon of 04/23 Echocardiogram (as above) Heart healthy diet Daily weights Strict I&O monitoring HF referral on discharge #H/o nonsustained V. tach Follows with Dr. Gamble (Cardiology) Noted to have frequency PVCs, bigeminy, and short run of Vtach while inpatient Did not tolerate metoprolol or nebivolol well in the past Adverse reaction: After take metoprolol, she reported confusion, lightheadedness, and feeling completely out of it #Fall Patient tripped and sustained a mechanical fall while doing laundry on Saturday 04/14 No head strike or LOC; fell onto her left hip and wrist PT/OT evaluations appreciated #HTN Hold losartan # Osteoporosis Continue vitamin D supplements Recheck a.m. vitamin D level #Hyperparathyroidism S/p parathyroid surgery in 2010 and repeat in August 2022 (unsuccessful) Follows with endocrinology as an OP Continue Cinacalcet twice weekly [facility] VTE PPx: Domingo Admission and Anticipated Discharge Date Admission Date: April 21, 2025 Supervising Physician Co-Signing Physician Notes Seen at the bedside. Pulse ranging in 60s this afternoon however has had intermittent rated cardia and pauses. Negative chronotropic's held. She reports this does feel similar to when she had been on beta-blockers in the past although took a little bit longer to happen. Given pause, intolerance to higher rates, and development of pauses and bradycardia with attempted rate control agents will need a pacemaker evaluation for tachybradycardia syndrome/SSS. Discussed with PA. Cardiology notified for reassessment in the morning, will be moved to telemetry with pacer pads to bedside if needed agree with above Subjective Mrs. Blanco woke up feeling better than she did yesterday. Yesterday, she reports she was "sleeping" most the day, but she woke up today feeling more alert and oriented. She is still having dyspnea on exertion, but has not been up out of bed yet today. She can also feel intermittent chest palpitations while at rest in bed, but reports she does have history of PVCs, and is unsure if it is due to that instead. Patient did have a bowel movement yesterday after receiving MiraLAX, and reports that the "felt like pressure" around her epigastric region/chest improved significantly. She thinks that maybe constipation could have been contributing to some of her chest pain and is requesting additional MiraLAX today. ROS: Patient endorses MANZO, intermittent chest palpitations, and easy fatigability. Patient denies fever, lightheadedness with ambulation, chest pain, pleuritic CP, cough, abdominal pain, N/V/D, changes in urinary/bowel habits, or swelling to legs (much improved from prior). ADDENDUM at 1330: Patient reported she was walking back from bathroom when she suddenly felt extremely fatigued. While she denied presyncope, she feared she would not make it back to her seat, and that her legs were about to give out on her. She also endorses significantly worse MANZO. She appears anxious at this time. VSS at this time (BP normotensive). Troponin and EKG ordered, pending. Review of Systems 2 Review of Systems: See HPI above Physical Exam 2 Physical Exam: General: no acute distress; pleasant affect; anxious; non-toxic appearing; frail-appearing; cooperative; SpO2 94% on RA HEENT: normocephalic, atraumatic; PERRLA; vision and hearing intact Neck: supple; trachea midline Skin: warm, dry without signs of tenting; no cyanosis; no rashes, bruising, lesions, or erythema noted CV: chest wall NTP; irregularly irregular heart rate around 60 bpm; 4/6 systolic ejection murmur auscultated at the second ICS MCL; pulses intact and symmetric at radial, DP, and PT Lungs: no acute respiratory distress; symmetrical chest wall expansion; clear breath sounds across all lung knight w/o adventitious sounds; no wheezing ABD: Soft, NTP; BS present; no rebound/guarding; no distention MSK: no tics or fasciculations; no edema noted in the LEs b/l, nonerythematous LEs: Patient demonstrates ability to wiggle toes bilaterally; no edema appreciated on the dorsal aspect of the feet and ankles bilaterally, nonerythematous Neuro: A&Ox3; normal mood and affect; fluent speech; sensation intact and symmetric in the LEs b/l assessed by light touch Results & Data Results & Data Vital Signs (Past 12 Hours) Vital Signs Temp Pulse Pulse Resp BP BP Pulse Ox 04/23/25 15:15 58 L 101/57 L 94 04/23/25 14:17 58 L 04/23/25 14:00 04/23/25 13:21 76 17 110/57 L 96 04/23/25 11:43 36.5 C 73 16 105/65 98 04/23/25 08:45 36.6 C 73 18 109/59 L 97 04/23/25 06:53 79 04/23/25 03:34 36.4 C L 69 18 104/56 L 98 Pulse Ox O2 Del Method O2 Del Method 04/23/25 15:15 Room Air 04/23/25 14:17 04/23/25 14:00 96 Room Air 04/23/25 13:21 Room Air 04/23/25 11:43 Room Air 04/23/25 08:45 Room Air 04/23/25 06:53 04/23/25 03:34 Room Air ECG Additional Comments: PG Care Time/CCT Total # of Minutes Spent Total Time Spent with Patient: Total time spent is greater than 50% in coordination of care (as documented) at patient's floor/unit and/or counseling patient: Coding [place] [address] SUB INP/OBS CARE 3/50MIN Patient Type Established Medical Decision Making High Complexity Diagnoses New onset a-fib I48.91 Acute heart failure with preserved ejection fraction I50.31 Fall W19.XXXA
[2025-04-23 16:36] LABS: Hematocrit (blood only) 38.4 % (37.0-47.0); Hemoglobin 12.8 g/dL (12.0-16.0); Immature Granulocytes # (auto) 0.06 K/uL (0.01-0.20); Immature Granulocytes % (auto) 0.7 %; Mean Corpuscular Hemoglobin 31.2 pg (25.0-34.0); Mean Corpuscular Volume 93.7 fL (80.0-100.0); Platelet Count 210 K/uL (130-400); RDW Standard Deviation 49.4 fL (36.4-46.3); Red Blood Count 4.10 M/uL (4.20-5.40); White Blood Count 8.63 K/ul (4.8-10.8)
[2025-04-23 16:53] LABS: Anion Gap 11.0 (3-11); Blood Urea Nitrogen 59.0 mg/dl (6-23); Calcium 9.0 mg/dl (8.6-10.3); Carbon Dioxide 23.0 mmol/L (21-32); Chloride 101.0 mmol/L (98-107); Creatinine Clr Calc Pharmacy 16.7 ml/min; Glucose 119.0 mg/dl (70-99(Fasting)); Potassium 4.4 mmol/L (3.5-5.1); Sodium 135.0 mmol/L (136-145)
[2025-04-24 06:56] LABS: Hematocrit (blood only) 38.2 % (37.0-47.0); Hemoglobin 12.6 g/dL (12.0-16.0); Immature Granulocytes # (auto) 0.04 K/uL (0.01-0.20); Immature Granulocytes % (auto) 0.5 %; Mean Corpuscular Hemoglobin 31.0 pg (25.0-34.0); Mean Corpuscular Volume 93.9 fL (80.0-100.0); Platelet Count 210 K/uL (130-400); RDW Standard Deviation 50.1 fL (36.4-46.3); Red Blood Count 4.07 M/uL (4.20-5.40); White Blood Count 8.21 K/ul (4.8-10.8)
[2025-04-24 07:10] LABS: Anion Gap 11.0 (3-11); Blood Urea Nitrogen 54.0 mg/dl (6-23); Calcium 9.1 mg/dl (8.6-10.3); Carbon Dioxide 25.0 mmol/L (21-32); Chloride 102.0 mmol/L (98-107); Creatinine Clr Calc Pharmacy 20.4 ml/min; Glucose 118.0 mg/dl (70-99(Fasting)); Potassium 3.8 mmol/L (3.5-5.1); Sodium 138.0 mmol/L (136-145)
[2025-04-24] MEDS: FUROSEMIDE 20 MG TAB PO SCH (09:19)
--- NOTE | 2025-04-24 14:16 | Electrocardiogram Report ---
Test Reason : Blood Pressure : */* mmHG Vent. Rate : 65 BPM Atrial Rate : * BPM P-R Int : * ms QRS Dur : 120 ms QT Int : 412 ms P-R-T Axes : * -30 198 degrees QTcB Int : 428 ms Atrial fibrillation Left axis deviation Left ventricular hypertrophy with QRS widening and repolarization abnormality Abnormal ECG When compared with ECG of 21-Apr-2025 19:55, ST no longer depressed in Anterior leads T wave inversion now evident in Inferior leads QT has shortened Confirmed by Noel Villalobos ([id number]) on 04/24/2025 2:16:12 PM Referred By: REFERRED SELF Confirmed By: Noel Villalobos
[2025-04-24 16:14] VITALS: RESP 18
--- NOTE | 2025-04-24 17:51 | Hospitalist Progress Note ---
Date of Service April 24, 2025 Assessment & Plan (1) New onset a-fib: (2) Acute heart failure with preserved ejection fraction: (3) Fall: Plan This patient is an 89-year-old female who presented on 04/20 for progressive MANZO x 1 week. No prior history of atrial fibrillation or heart failure to her knowledge, but she does take Lasix daily for history of LE edema. Coming in for cardiac assessment. #New onset atrial fibrillation Troponin x 2 elevated, but stable / downtrending; lower suspicion for ischemic etiology Echocardiogram revealed LVEF at 60 to 65% with mitral regurg and severe pulmonary hypertension; however, similar when compared to most recent echocardiogram in August 2023 TSH WNL [id number] Score: 5 Eliquis 2.5 mg BID To date, patient has not tolerated metoprolol, Nebivolol, carvedilol, or diltiazem Intermittently, tachycardic with exertion On 04/23 she began having runs of bradycardia with her A-fib; ?Tachy-ximena syndrome no overt bradycardia on 04/24/25 External pacer order from bedside D/c beta-estefanía, CCB May require eval for pacemaker Cardiology consult appreciated--recalled will need to see on 04/25/25 Continuous telemetry monitoring #Acute HFpEF Reported weight 125.8 lb on arrival 04/20 Trending down to 120.3 lb on 04/23 Lasix 20mg po daily Echocardiogram (as above) Heart healthy diet Daily weights Strict I&O monitoring HF referral on discharge #H/o nonsustained V. tach Follows with Dr. Gamble (Cardiology) Noted to have frequency PVCs, bigeminy, and short run of Vtach while inpatient Did not tolerate metoprolol or nebivolol well in the past Adverse reaction: After taking metoprolol, she reported confusion, lightheadedness, and feeling completely out of it #Fall Patient tripped and sustained a mechanical fall while doing laundry on Saturday 04/14 No head strike or LOC; fell onto her left hip and wrist PT/OT evaluations appreciated #HTN Losartan #Osteoporosis Continue vitamin D supplements Vitamin D level 53.9 #Hyperparathyroidism S/p parathyroid surgery in 2010 and repeat in August 2022 (unsuccessful) Follows with endocrinology as an OP Continue Cinacalcet twice weekly Disposition: Upgrade from [facility] telemetry -> PCU telemetry VTE PPx: Eliquis Admission and Anticipated Discharge Date Admission Date: April 21, 2025 Supervising Physician Co-Signing Physician Notes The patient was not seen by me. The chart was reviewed. Case discussed with RYARAY Leary. Agree with assessment and plan. Subjective Patients states she still feels weak when ambulating and feels as though her heart is beating fast when she stands up to ambulate. Denies CP, SOB, MANZO. Appetite good. No other complaints. Review of Systems Review of Systems: All systems reviewed & are unremarkable except as noted in Subjective Physical Exam Physical Exam: GENERAL APPEARANCE: A&O. Sitting comfortably in bed. NAD. SKIN: Normal color without rashes or lesions. Normal turgor. HEENT: Head AT/NC. Buccal mucosa is moist and pink. NECK: No jugular venous distention. No thyroid enlargement. There is no lymphadenopathy. HEART: Irregularly irregular. LUNGS: Normal inspiratory effort. CTA without w/r/r ABDOMEN: No guarding or rigidity. Normoactive BS in all four quadrants. Abdomen soft and NT. MSK: No bony gross/deformities throughout. ROM intact. EXTREMITIES: No edema, No peripheral cyanosis. Neuro: CN 2-12 grossly intact. No focal neuro deficits PSYCHIATRIC: Normal affect. Eye contact is good. Speech is normal rate and content. Responses are appropriate. Results & Data Results & Data Vital Signs (Past 12 Hours) Vital Signs Temp Pulse Pulse Resp BP Pulse Ox O2 Del Method 04/24/25 16:14 36.4 C L 79 18 102/53 L 97 Room Air 04/24/25 14:51 81 04/24/25 11:36 36.4 C L 73 20 104/61 97 Room Air 04/24/25 10:50 74 04/24/25 07:47 36.3 C L 93 H 18 132/84 97 Room Air Laboratory Results Labs reviewed: CBC, BMP PG Care Time/CCT Total # of Minutes Spent Total Time Spent with Patient: Total time spent is greater than 50% in coordination of care (as documented) at patient's floor/unit and/or counseling patient: Coding Level of Care Code 17144 SUB INP/OBS CARE 2/35MIN Diagnoses New onset a-fib I48.91 Acute heart failure with preserved ejection fraction I50.31 Fall W19.XXXA
[2025-04-25 11:53] VITALS: PULSE 66; TEMP 98.4; O2SAT 94
[2025-04-25 14:22] VITALS: BP 113/69
[2025-04-25 14:41] LABS: Hematocrit (blood only) 43.9 % (37.0-47.0); Hemoglobin 14.2 g/dL (12.0-16.0); Immature Granulocytes # (auto) 0.05 K/uL (0.01-0.20); Immature Granulocytes % (auto) 0.6 %; Mean Corpuscular Hemoglobin 30.8 pg (25.0-34.0); Mean Corpuscular Volume 95.2 fL (80.0-100.0); Platelet Count 234 K/uL (130-400); RDW Standard Deviation 51.7 fL (36.4-46.3); Red Blood Count 4.61 M/uL (4.20-5.40); White Blood Count 7.79 K/ul (4.8-10.8)
[2025-04-25 14:50] LABS: Anion Gap 10.0 (3-11); Blood Urea Nitrogen 52.0 mg/dl (6-23); Calcium 9.9 mg/dl (8.6-10.3); Carbon Dioxide 26.0 mmol/L (21-32); Chloride 100.0 mmol/L (98-107); Creatinine Clr Calc Pharmacy 18.9 ml/min; Glucose 145.0 mg/dl (70-99(Fasting)); Potassium 4.5 mmol/L (3.5-5.1); Sodium 136.0 mmol/L (136-145)
--- NOTE | 2025-04-25 18:21 | Discharge Summary ---
Discharge Summary Date of Service April 25, 2025 Principal Dx & Hospital Course #1 = Principal Diagnosis (1) New onset a-fib: (2) Acute heart failure with preserved ejection fraction: (3) Fall: Plan This patient is an 89-year-old female who presented on 04/20 for progressive MANZO x 1 week. No prior history of atrial fibrillation or heart failure to her knowledge, but she does take Lasix daily for history of LE edema. Coming in for cardiac assessment. #New onset atrial fibrillation Troponin x 2 elevated, but stable / downtrending; lower suspicion for ischemic etiology Echocardiogram revealed LVEF at 60 to 65% with mitral regurg and severe pulmonary hypertension; however, similar when compared to most recent echocardiogram in August 2023 TSH WNL [id number] Score: 5 Eliquis 2.5 mg BID To date, patient has not tolerated metoprolol, Nebivolol, carvedilol, or diltiazem Intermittently, tachycardic with exertion On 04/23 she began having runs of bradycardia with her A-fib; ?Tachy-ximena syndrome NO sustained bradycardic episodes since discontinuation of beta estefanía (coreg) and diltiazem on 04/23/25 External pacer order from bedside Cardiology consult appreciated--recalled with verbal correspondence with Dr. Villalobos on 04/25/25-->heart rates on telemetry with AF consistently 60s/70s since date of 04/23/25, mild tachycardia with ambulation not increasing >100/110, not requiring rate control medication and in the setting of noted bradycardia on 04/23 at 1538 (short lived and transient) with no additional occurrences with d/c of BB and diltiazem reasonable to d/c on Eliquis only for anticoagulation r/t new onset AF, no recommendation for outpatient cardiac monitoring Continuous telemetry monitoring #Acute HFpEF Reported weight 125.8 lb on arrival 04/20 Trending down to 120.3 lb on 04/23 Lasix 20mg po daily Echocardiogram (as above) Heart healthy diet Daily weights Strict I&O monitoring HF referral on discharge--appt scheduled #H/o nonsustained V. tach Follows with Dr. Gamble (Cardiology) Noted to have frequency PVCs, bigeminy, and short run of Vtach while inpatient Did not tolerate metoprolol or nebivolol well in the past Adverse reaction: After taking metoprolol, she reported confusion, light headedness, and feeling completely out of it #Fall Patient tripped and sustained a mechanical fall while doing laundry on Saturday 04/14 No head strike or LOC; fell onto her left hip and wrist PT/OT evaluations appreciated #HTN Losartan #Osteoporosis Continue vitamin D supplements Vitamin D level 53.9 #Hyperparathyroidism S/p parathyroid surgery in 2010 and repeat in August 2022 (unsuccessful) Follows with endocrinology as an OP Continue Cinacalcet twice weekly Disposition: d/c home VTE PPx: Eliquis Patient provided copay and free voucher cards for Eliquis Notes For Next Care Provider Patient with baseline Cr at 1.2-1.5, d/c Cr at 1.48, f/u BMP in one week Medication Changes From Visit Eliquis 2.5mg po BID Admission HPI Per Admitting Provider Mrs. Mendoza is an 89-year-old female with PMH of CKD stage III, situational anxiety, sinus node dysfunction, Tanner syndrome, and osteoporosis. She presented on 04/20 for progressive MANZO x 1 week. Patient reports that activities that would not cause her difficulty breathing, have led her to struggle in the past week. For instance she would bend over and this would "kick up a storm". Today, she told her daughter that she cannot take a few lorraine ps without feeling "exhausted". Patient denies prior history of atrial fibrillation. While she denies SOB at rest at this time, she does report that she has had "a little" SOB at rest this past week. No chest pain, but endorses chest "tightness". Additionally, patient wears an iWatch, which reported that she went into atrial fibrillation on Tuesday 04/17. She then had 5 additional episodes of A-fib on Thursday. 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 No head strike or LOC; not on blood thinners; she struck her left hip/buttocks, and left wrist. She has a bruise on her left lateral buttocks that is tender to palpation, she reports the swelling and pain in her left wrist have largely subsided. She declines an x-ray of her left wrist at this time. Patient previously followed with cardiology (Dr. Gamble) for history of V. tach. No sick contacts to her knowledge. No cough. Patient lives on her own and is largely independent at baseline. She ambulates with a rolling walker in the mornings while getting up, but can get around her house without any ambulatory assist devices most of the time. Additionally, while she denies chest palpitations, she reports that she has felt "flutters" in the past, and that have grown increasingly frequent this past week. Sitting alleviates her symptoms. Patient manages her own medications at home. She took her regular morning medications today (Lasix and losartan). No recent change in medications. She denies prior history of heart failure, but does take Lasix daily for history of lower extremity edema. While she denies any swelling in her legs, she reports that she has had around 4 to 5 pounds of weight gain this week. She normally weighs around 121 pounds, but reports she was 125.8 this morning. While she denies any recent change in diet, she does not always watch her salt intake at home. For instance, she was having soup this past week (chicken and veggies), and while she normally harrington down her soup to decrease sodium intake, she did not do that this week. History of issues with her parathyroid involving surgeries in 2010, in 2020. Patient reports she is not currently on blood thinners, but does not have any reasons why she cannot be placed on blood thinners (no history of brain bleeds, GI bleeds, prior strokes). That patient is mildly hypertensive at 141/66 at time of admission; vitals otherwise stable. ED course: Furosemide 20 mg IV ROS: Patient endorses progressive MANZO, occasional SOB at rest, chest tightness, and GI discomfort (patient attributes to her hiatal hernia). Patient denies fever, chills, night-sweats, dizziness/lightheadedness, chest pain, chest palpitations, congestion, cough, pleuritic CP, abdominal pain, N/V/D, changes in urinary/bowel habits, burning with urination, blood in the urine/stool, or numbness/tingling/swelling in the legs. Discharge Exam GENERAL APPEARANCE: A&O. Sitting comfortably in bed. NAD. SKIN: Normal color without rashes or lesions. Normal turgor. HEENT: Head AT/NC. Buccal mucosa is moist and pink. NECK: No jugular venous distention. No thyroid enlargement. There is no lymphadenopathy. HEART: Irregularly irregular. LUNGS: Normal inspiratory effort. CTA without w/r/r ABDOMEN: No guarding or rigidity. Normoactive BS in all four quadrants. Abdomen soft and NT. MSK: No bony gross/deformities throughout. ROM intact. EXTREMITIES: No edema, No peripheral cyanosis. Neuro: CN 2-12 grossly intact. No focal neuro deficits PSYCHIATRIC: Normal affect. Eye contact is good. Speech is normal rate and content. Responses are appropriate. Discharge Plan Discharge Items Patient Disposition: Home - Self-Care Reason For Visit: NEW ONSET A FIB, ACUTE HFpEF Discharge Diagnosis: New onset atrial fibrillation Condition on Discharge: Good Activity: Resume your previous activity Bathing: No limitations Weightbearing: Full weightbearing Non-emergency contact: Primary Care Provider and Postal Transportation Clerk Call non-emergency contact if: you have any medication questions, your symptoms worsen, your pain is not controlled and you have a fever Follow-up/Referrals: Gwyn Gomez MD [Physician] - (as scheduled) Sarah Slade PA-C [Physician Automotive Vehicle Inspector] - 05/02/25 10:30 am Rob Pendleton DO [Primary Care Provider] - 05/05/25 9:30 am (Follow up within one week of discharge 05/05/25 at 9:30 with Jaya SEO) Diet: Heart Healthy and Low Sodium (2gm) Addtl Attending Provider Instructions: Jennie Jefe were admitted to the hospital for new onset atrial fibrillation. During the course of your hospitalization you had a slower heart rate at one point after being placed on diltiazem and Coreg. These medications were immediately discontinued on 04/22/25 and your heart rate has been maintained at a normal rate of 60-70 bpm since the medications were discontinued. Therefore, you will not be discharged on any medications to control your heart rate and only a blood thinning medication alone. A prescription for Eliquis 2.5mg to be taken twice daily has been sent to your pharmacy for a 30 day supply. It is important you follow up with cardiology, the heart failure clinic and your family doctor. Please follow up with your family doctor within one week of discharge to have your kidney function assessed. You may also need a sleep study test. Additionally, an echocardiogram was obtained while you were in the hospital which did not reveal significant changes from your most recent echocardiogram in August 2024. Your ejection fraction remains stable at 60-65% (which is normal for most people), and you did not exhibit any regional wall motion abnormalities. However, you exhibited something called severe pulmonary hypertension, which was likely due to your mitral valve prolapse. This might be contributing to some of your symptoms of chest tightness and trouble breathing with exertion. We discussed this at bedside, and he reported that he would not want any procedures done on your mitral valve given your age. Medications: Your medication list has been reviewed and reconciled upon discharge to ensure accuracy and continuity of care. An updated list of all your medications is included with your hospital discharge paperwork. Please review this list closely, and make note of any changes. Take your medications as instructed; do not skip a dose of your medicines. Make sure all of your doctors know every medicine you are taking (including jvza-xqc-elqwohv medicines, vitamins, and supplements). Call your primary care provider before taking any new medicines (including over- the-counter medicines, vitamins, and supplements), because some of these may interact with your current medications, or may make your symptoms worse. Tell your primary care provider if you cannot afford your medications. Activity: You can do normal everyday activities as your body allows. Take rest breaks if you feel tired. Do not overexert. Stop activity if you have pain, shortness of breath or feel dizzy. Follow-up appointments: Make an appointment with your primary care physician within one week of discharg e. A copy of this summary will be sent to them. Every time you see your primary care physician, or any other doctor, bring your medication list, and a list of questions. CONTACT YOUR PRIMARY CARE PROVIDER if you experience any of the following: Shortness of breath or difficulty breathing Fevers or chills Feeling tired with normal activity or experiencing dizziness or fainting Difficulty following your treatment plan, or difficulty taking medications CALL 911 OR GO TO THE EMERGENCY DEPARTMENT if you experience any of the following: Severe abdominal pain or nausea/vomiting Severe chest pain, or chest pain that radiates (moves) to your jaw or arm Sudden, severe shortness of breath or difficulty breathing Thank you for allowing us to participate in your care. Pending Studies at Discharge: No Stand-Alone Forms: My [facility] Medications and DC Order Prescriptions: New Eliquis 2.5 mg tablet 2.5 mg PO BID Qty: 60 0RF Continued Lactobacillus acidophilus [Acidophilus] capsule 10 mg PO QAM cholecalciferol (vitamin D3) 25 mcg (1,000 unit) capsule 25 mcg PO DAILY losartan 25 mg tablet 25 mg PO QAM Qty: 90 3RF Hold Instructions: Resume on 04/25/24. Hold until told to restart by your PCP cinacalcet 30 mg tablet 30 mg PO 2XWK 90 Days Qty: 90 3RF Rx Instructions: only taking Wednesdays and Saturdays multivitamin Tablet 1 tab PO QAM omega 8-nwg-dgz-fish oil [Fish Oil] 1,200 (144-216) mg capsule 1 cap PO PM furosemide 20 mg tablet 20 mg PO DAILY Rx Instructions: TAKE 1 TABLET BY MOUTH DAILY Discharge Orders: Discharge Order (Routine); Ordered 04/25/25 Ordered By: Debra Drake/Other Patient Handouts: AFib Dc, AFib Preventing Stroke Admission Data Admit Date/Time: 04/21/25 15:46 Attending Provider: Neto Harden Admit Provider: Petr Carl Primary Care Provider: Rob Pendleton Other Providers: Anshul Cerda Alexander W.; Sarah Slade; Michael Reese Other Interventions: Discharge Summary Assessment (RN) Last Done: 04/25/25 14:21 Hospital Stay Data Consultations 04/20/25 11:37 ED Decision to Admit Stat 04/21/25 07:38 Consult Cardiology Routine 04/21/25 14:37 [facility] [place] [facility] [place]ine Pending Results Patient Have Any Pending Studies at Discharge: No Discharge Instructions Given to Patient (Per Discharging Provider) Jennie Jefe were admitted to the hospital for new onset atrial fibrillation. During the course of your hospitalization you had a slower heart rate at one point after being placed on diltiazem and Coreg. These medications were immediately discontinued on 04/22/25 and your heart rate has been maintained at a normal rate of 60-70 bpm since the medications were discontinued. Therefore, you will not be discharged on any medications to control your heart rate and only a blood thinning medication alone. A prescription for Eliquis 2.5mg to be taken twice daily has been sent to your pharmacy for a 30 day supply. It is important you follow up with cardiology, the heart failure clinic and your family doctor. Please follow up with your family doctor within one week of discharge to have your kidney function assessed. You may also need a sleep study test. Additionally, an echocardiogram was obtained while you were in the hospital which did not reveal significant changes from your most recent echocardiogram in August 2024. Your ejection fraction remains stable at 60-65% (which is normal for most people), and you did not exhibit any regional wall motion abnormalities. However, you exhibited something called severe pulmonary hyper tension, which was likely due to your mitral valve prolapse. This might be contributing to some of your symptoms of chest tightness and trouble breathing with exertion. We discussed this at bedside, and he reported that he would not want any procedures done on your mitral valve given your age. Medications: Your medication list has been reviewed and reconciled upon discharge to ensure accuracy and continuity of care. An updated list of all your medications is included with your hospital discharge paperwork. Please review this list closely, and make note of any changes. Take your medications as instructed; do not skip a dose of your medicines. Make sure all of your doctors know every medicine you are taking (including scma-gmq-mslftrh medicines, vitamins, and supplements). Call your primary care provider before taking any new medicines (including over- the-counter medicines, vitamins, and supplements), because some of these may interact with your current medications, or may make your symptoms worse. Tell your primary care provider if you cannot afford your medications. Activity: You can do normal everyday activities as your body allows. Take rest breaks if you feel tired. Do not overexert. Stop activity if you have pain, shortness of breath or feel dizzy. Follow-up appointments: Make an appointment with your primary care physician within one week of discharge. A copy of this summary will be sent to them. Every time you see your primary care physician, or any other doctor, bring your medication list, and a list of questions. CONTACT YOUR PRIMARY CARE PROVIDER if you experience any of the following: Shortness of breath or difficulty breathing Fevers or chills Feeling tired with normal activity or experiencing dizziness or fainting Difficulty following your treatment plan, or difficulty taking medications CALL 911 OR GO TO THE EMERGENCY DEPARTMENT if you experience any of the following: Severe abdominal pain or nausea/vomiting Severe chest pain, or chest pain that radiates (moves) to your jaw or arm Sudden, severe shortness of breath or difficulty breathing Thank you for allowing us to participate in your care. Supervising Physician Co-Signing Physician Notes The patient was not seen by me. The chart was reviewed. Case discussed with RAYRAY Leary. Agree with assessment and plan. Total Time Total Time Spent Total Time Spent (In Minutes): 50 minutes total Coding Level of Care Code 42706 INP/OBS DISCH >30 MIN Diagnoses New onset a-fib I48.91 Acute heart failure with preserved ejection fraction I50.31 Fall W19.XXXA
== END 2025-04-25 14:49 | disposition home or self-care (01) | DRG 308 ==
LOC: SUATTDRO → 2N 09:02 → ED 09:02 → 2N 14:08 → SUATTDRO 04-21 15:46 → 2S 04-23 17:52